=== PATIENT | female | born 1935 | race Caucasian/White ===

== ENCOUNTER 2016-05-07 19:04 | Inpatient (IN) ==
[2016-05-07] MEDS ORDERED: Ondansetron 4 MG/2 ML VIAL IVP ONE (19:35)
[2016-05-07] MEDS ORDERED: 0.9 % Sodium Chloride 500 ML IVC ONE (19:39)
--- NOTE | 2016-05-07 19:51 | Emergency Department Note ---
Disposition Clinical Impression: Hypoxia Acute renal failure Qualifiers: Acute renal failure type: unspecified Qualified Code(s): N17.9 - Acute kidney failure, unspecified Disposition: Admitted As Inpatient Condition: Good Time of Disposition: 00:39 General Adult HPI - General Chief complaint: ED Nausea/Vomiting/Diarrhea Stated complaint: N/V/D Time Seen by Provider: 05/07/16 19:10 Source: patient, EMS Mode of arrival: ambulatory Limitations: no limitations Nursing Notes Reviewed: Yes Vital Signs Reviewed: Yes - History of Present Illness HPI Narrative: 81-year-old female presents with concerns of nausea, vomiting, and diarrhea over the past 5 days. Patient states that she has had multiple episodes of nonbilious, nonbloody emesis. Diarrhea was described as liquid without hematochezia or melena. No other sick contacts at home. Patient reports right lower quadrant abdominal pain that is cramping, aching, nonradiating, no change with movement or by mouth intake. Patient reports mild shortness of breath with exertion, mild cough that is nonproductive. Patient stopped her Lasix 4 days ago upon request of her primary care provider. Patient denies fever, headache, rash. Family states the patient is mildly confused, was started on an unknown antibiotic yesterday for urinary tract infection. She also becomes confused with which is her baseline. Pain Scale: 0 - Related Data Home Medications Medication Instructions Recorded Confirmed Aspirin Enteric Coated [Aspirin EC] 81 mg PO DAILY 09/06/15 05/07/16 Ca/D3/Mag#11/Zinc/Obiee Lead Developer/Leonardo/Bor 1 tab PO BID 09/06/15 05/07/16 [Caltrate 600+D Plus Tablet] Cholecalciferol (D-3) [Vitamin D] 2,000 unit PO DAILY 09/06/15 05/07/16 Lansoprazole [Prevacid] 30 mg PO DAILY 09/06/15 05/07/16 Levothyroxine [Synthroid] 75 mcg PO DAILY 09/06/15 05/07/16 Multivit-Min/Iron/Folic/Lutein 1 tab PO DAILY 09/06/15 05/07/16 [Centrum Silver Women Tablet] Vit C/E/Zn/Coppr/Lutein/Zeaxan 1 cap PO BID 11/19/15 05/07/16 [Preservision Areds 2 Softgel] Nystatin Cream [Mycostatin Cream] 1 appl TP BID PRN 01/28/16 05/07/16 Ciprofloxacin HCl [Cipro] 250 mg PO BID 05/07/16 05/07/16 Meclizine [Antivert] 12.5 - 25 mg PO DAILY PRN 05/07/16 05/07/16 Oxybutynin Chloride [Ditropan Xl] 10 mg PO HS 05/07/16 05/07/16 Previous Rx's Medication Instructions Recorded Metoprolol XL (24 HR) Succ [Toprol 25 mg PO DAILY tab.er.24h 09/11/15 Xl] Allergies Allergy/AdvReac Type Severity Reaction Status Date / Time azithromycin Allergy Rash Verified 11/19/15 11:15 ketoconazole Allergy Rash Verified 11/19/15 11:15 methylprednisolone Allergy Blister Verified 11/19/15 11:15 Penicillins Allergy Rash Verified 11/19/15 11:15 tramadol AdvReac Nausea Verified 11/19/15 11:15 All systems ED: reviewed and negative except as stated. Constitutional: Reports: weakness. Denies: fever, chills Cardiovascular: Reports: dyspnea on exertion. Denies: chest pain, palpitations Respiratory: Reports: cough. Denies: dyspnea, wheezes Gastrointestinal: Reports: abdominal pain, nausea, vomiting, diarrhea. Denies: constipation, hematemesis, melena, hematochezia Musculoskeletal: Denies: back pain, neck pain Neurological: Denies: headache, weakness, numbness, paresthesias Past Medical History - Past Medical History Attestation: Yes The following information was validated with the patient. Source: patient Medical history: Reports: aortic aneurysm, cancer, CHF, CVA, DVT, GERD, thyroid disease Surgical history: Reports: cholecystectomy, colectomy, hysterectomy, other Psychiatric history: Reports: no psych history DRY CAN TENDER history: Reports: no DRY CAN TENDER history - Social History Smoking Status: Former smoker Smokeless Tobacco Status: No Alcohol use: Reports: none Drug use: Reports: none Physical Exam General: Alert and in no acute distress Skin: Warm, dry, intact Head: Normocephalic and atraumatic Neck: Supple, trachea midline and no tenderness Cardiovascular: Tachycardia, no murmur, normal perfusion Respiratory: Crackles in the bilateral posterior lung bases. Musculoskeletal: Normal strength, no tenderness, swelling or deformity GI: Soft, mild tenderness to palpation of the right lower quadrant and epigastrium without rigidity, guarding, or rebound. nondistended. Bowel sounds present Neuro: A&O to person, place, time and situation. No focal deficits noted on exam Psychiatric: cooperative and appropriate mood and affect. - General Limitations: no limitations General appearance: alert, in no apparent distress Course Vital Signs Temperature 97.8 F 05/07/16 19:07 Pulse Rate 101 05/07/16 19:07 Respiratory Rate 16 05/07/16 19:07 Blood Pressure 117/71 05/07/16 19:07 O2 Sat by Pulse Oximetry 88 L 05/07/16 19:07 Temperature 97.7 F 05/07/16 23:47 Pulse Rate 100 05/07/16 23:47 Respiratory Rate 14 05/07/16 23:47 Blood Pressure 130/78 05/07/16 23:47 O2 Sat by Pulse Oximetry 95 05/07/16 23:47 Oxygen Delivery Oxygen Delivery Nasal Cannula Medical Decision Making - MDM Narrative Medical decision making narrative: Pt given 500cc of fluid with improvement of HR. I did not give too much fluids due to her history of CHF. Pt may have aspirated during one of her episodes of emesis. Pt will be admitted for further care and evaluation. - Medical Records Medical records reviewed: Yes I reviewed the patient's medical records. - Lab Data Lab results reviewed: Yes I reviewed the patient's lab results. Result diagrams: 05/07/16 20:33 05/07/16 19:55 Lab Results 05/07/16 05/07/16 05/07/16 Range/Units 19:55 19:55 20:33 WBC 13.8 H (4.3-11.1) K/mcL RBC 4.75 (3.82-4.97) M/mcL Hgb 14.9 (11.5-15.4) g/dL Hct 47.1 H (35.3-44.9) % MCV 99.2 (83.0-100.0) fL MCH 31.4 (28.0-33.3) pg MCHC 31.6 (31.6-35.5) g/dL RDW 15.4 H (11.5-14.5) % Plt Count 223 (140-400) K/mcL MPV 9.9 (9.4-12.4) fL Immature Gran % 0.7 (0-4) % Seg Neutrophils % 85.1 % Lymphocytes % 6.2 % Monocytes % 7.6 % Eosinophils % 0.1 % Basophils % 0.3 % Neutrophils # 11.7 H (1.6-8.9) K/mcL Lymphocytes # 0.9 (0.6-4.6) K/mcL Monocytes # 1.0 (0.0-1.3) K/mcL Eosinophils # 0.0 (0.0-0.6) K/mcL Basophils # 0.0 (0.0-0.2) K/mcL Immature Plt Fraction 3.8 (1.1-6.1) % Sodium 140 (136-145) mEq/L Potassium 4.8 H (3.5-4.5) mEq/L Chloride 109 (98-109) mEq/L Carbon Dioxide 11 L (19-29) mEq/L BUN 32 H (7-20) mg/dL Creatinine 3.14 H (0.57-1.11) mg/dL Est GFR ( Amer) 17 L (> 60) Est GFR (Non-Af Amer) 14 L (> 60) BUN/Creatinine Ratio 10 (6-26) Glucose 143 H (70-99) mg/dL Calculated Osmolality 299 (280-300) Calcium 10.3 (8.6-10.8) mg/dL Total Bilirubin 0.5 (0.2-1.2) mg/dL Direct Bilirubin 0.2 (0.0-0.5) mg/dL Indirect Bilirubin 0.3 (0.0-1.2) mg/dL AST 40 H (5-34) Units/L ALT 37 (0-55) Units/L Alkaline Phosphatase 86 (38-126) Units/L Troponin I 0.01 (0-0.03) ng/mL B-Natriuretic Peptide (0-100) pg/mL Serum Total Protein 9.7 H (6.0-8.3) g/dL Albumin 4.2 (3.5-5.0) g/dL Globulin 5.5 H (2.4-3.5) g/dL Albumin/Globulin Ratio 0.8 L (1.1-2.2) Lipase 9 (8-78) Units/L Urine Color (Yellow) Urine Clarity (Clear) Urine pH (5.0-8.0) pH Units Ur Specific [place] (1.010-1.025) Urine Protein (Neg-Trace) mg/dL Urine Glucose (UA) (Normal) mg/dL Urine Ketones (Negative) mg/dL Urine Blood (Negative) Urine Nitrite (Negative) Urine Bilirubin (Negative) Urine Urobilinogen (Normal) mg/dL Ur Leukocyte Esterase (Negative) Urine Microscopic RBC (0-3) per hpf Urine Microscopic WBC (0-3) per hpf Ur Squamous Epith Cells (None-Few) per lpf Amorphous Sediment (Few) Urine Bacteria (None-Few) per hpf Hyaline Casts (None-Few) per lpf Ur Culture Indicated? (NO) 05/07/16 05/07/16 Range/Units 20:59 21:31 WBC (4.3-11.1) K/mcL RBC (3.82-4.97) M/mcL Hgb (11.5-15.4) g/dL Hct (35.3-44.9) % MCV (83.0-100.0) fL MCH (28.0-33.3) pg MCHC (31.6-35.5) g/dL RDW (11.5-14.5) % Plt Count (140-400) K/mcL MPV (9.4-12.4) fL Immature Gran % (0-4) % Seg Neutrophils % % Lymphocytes % % Monocytes % % Eosinophils % % Basophils % % Neutrophils # (1.6-8.9) K/mcL Lymphocytes # (0.6-4.6) K/mcL Monocytes # (0.0-1.3) K/mcL Eosinophils # (0.0-0.6) K/mcL Basophils # (0.0-0.2) K/mcL Immature Plt Fraction (1.1-6.1) % Sodium (136-145) mEq/L Potassium (3.5-4.5) mEq/L Chloride (98-109) mEq/L Carbon Dioxide (19-29) mEq/L BUN (7-20) mg/dL Creatinine (0.57-1.11) mg/dL Est GFR ( Amer) (> 60) Est GFR (Non-Af Amer) (> 60) BUN/Creatinine Ratio (6-26) Glucose (70-99) mg/dL Calculated Osmolality (280-300) Calcium (8.6-10.8) mg/dL Total Bilirubin (0.2-1.2) mg/dL Direct Bilirubin (0.0-0.5) mg/dL Indirect Bilirubin (0.0-1.2) mg/dL AST (5-34) Units/L ALT (0-55) Units/L Alkaline Phosphatase (38-126) Units/L Troponin I (0-0.03) ng/mL B-Natriuretic Peptide 67 (0-100) pg/mL Serum Total Protein (6.0-8.3) g/dL Albumin (3.5-5.0) g/dL Globulin (2.4-3.5) g/dL Albumin/Globulin Ratio (1.1-2.2) Lipase (8-78) Units/L Urine Color Yellow (Yellow) Urine Clarity Cloudy A (Clear) Urine pH 5.0 (5.0-8.0) pH Units Ur Specific [place] 1.016 (1.010-1.025) Urine Protein 30 H (Neg-Trace) mg/dL Urine Glucose (UA) Normal (Normal) mg/dL Urine Ketones Negative (Negative) mg/dL Urine Blood Negative (Negative) Urine Nitrite Negative (Negative) Urine Bilirubin Negative (Negative) Urine Urobilinogen Normal (Normal) mg/dL Ur Leukocyte Esterase Trace H (Negative) Urine Microscopic RBC 0-3 (0-3) per hpf Urine Microscopic WBC 0-3 (0-3) per hpf Ur Squamous Epith Cells Many H (None-Few) per lpf Amorphous Sediment Many H (Few) Urine Bacteria Moderate H (None-Few) per hpf Hyaline Casts Few (None-Few) per lpf Ur Culture Indicated? YES A (NO) - Radiology Data Radiology results reviewed: Yes I reviewed the patient's radiology results. - EKG Data EKG #1 EKG attestation: Yes I reviewed and interpreted this EKG. EKG results narrative: ECG - interpreted by ED physician. Rate 103 sinus tachycardia, no STEMI, [place], QT intervals, and QRS within normal limits
[2016-05-07 20:17] LABS: Albumin 4.2 g/dL (3.5-5.0); Albumin/Globulin Ratio 0.8 (1.1-2.2); Bilirubin,Direct 0.2 mg/dL (0.0-0.5); Bilirubin,Indirect 0.3 mg/dL (0.0-1.2); Bilirubin,Total 0.5 mg/dL (0.2-1.2); Calcium 10.3 mg/dL (8.6-10.8); Globulin 5.5 g/dL (2.4-3.5); Potassium 4.8 mEq/L (3.5-4.5); Total Protein 9.7 g/dL (6.0-8.3)
[2016-05-07 20:40] LABS: Basophils % 0.3 %; Eosinophils % 0.1 %; Hematocrit 47.1 % (35.3-44.9); Hemoglobin 14.9 g/dL (11.5-15.4); Immature Granulocytes % 0.7 % (0-4); Immature Platelets 3.8 % (1.1-6.1); Lymphocytes # 0.9 K/mcL (0.6-4.6); Lymphocytes % 6.2 %; Mean Corpuscular HGB Conc 31.6 g/dL (31.6-35.5); Mean Corpuscular Hemoglobin 31.4 pg (28.0-33.3); Mean Corpuscular Volume 99.2 fL (83.0-100.0); Mean Platelet Volume 9.9 fL (9.4-12.4); Monocytes % 7.6 %; Neutrophils # 11.7 K/mcL (1.6-8.9); Platelet Count 223 K/mcL (140-400); Red Blood Count 4.75 M/mcL (3.82-4.97); Red Cell Distribution Width 15.4 % (11.5-14.5); Segmented Neutrophils % 85.1 %
[2016-05-07 21:10] LABS: Bilirubin,Urine Negative (Negative); Blood,Urine Negative (Negative); Clarity,Urine Cloudy (Clear); Color,Urine Yellow (Yellow); Glucose,Urine (UA) Normal (Normal); Ketones,Urine Negative (Negative); Leukocyte Esterase,Urine Trace (Negative); Nitrite,Urine Negative (Negative); Protein,Urine 30 mg/dL (Neg-Trace); Specific Gravity,Urine 1.016 (1.010-1.025); Urobilinogen,Urine Normal (Normal)
[2016-05-07 21:11] LABS: Bacteria,Urine Moderate per hpf (None-Few); Hyaline Casts,Urine Few per lpf (None-Few); RBC,Urine 0-3 per hpf (0-3); Squamous Epithelial Cell,Urine Many per lpf (None-Few); WBC,Urine 0-3 per hpf (0-3)
[2016-05-07 21:30] LABS: Amorphous Sediment,Urine Many (Few)
[2016-05-07] MEDS ORDERED: Naloxone 0.4 MG/ML INJ IVP PRN (23:59)
[2016-05-08] MEDS ORDERED: 0.9 % Sodium Chloride 1,000 ML IVC SCH (00:15)
--- NOTE | 2016-05-08 00:31 | Internal Med History&Physical ---
Date of Encounter: 05/08/16 Time of Encounter: 00:00 Assessment and Plan (1) Acute renal failure (ARF) Current visit: Yes Status: Acute Patient's previous creatinine was 1.06 on 01/30/16, now 3.14. Likely secondary to dehydration from loss of fluids with nausea, vomiting, and diarrhea. Gentle fluid repletion at 75ml/hr due to history of CHF. Continue to monitor. Qualifiers: Acute renal failure type: unspecified Qualified Code(s): N17.9 - Acute kidney failure, unspecified (2) Diarrhea Current visit: Yes Status: Acute In the setting of starting an antibiotic of ciprofloxacin for UTI. Described as profuse and watery. Workup includes C Diff toxin and stool lactoferrin. C Diff was positive. Patient started on IV metronidazole and place on contract precautions. Fluid replacement as above. Qualifiers: Diarrhea type: presumed infectious Qualified Code(s): A09 - Infectious gastroenteritis and colitis, unspecified (3) Nausea and vomiting Current visit: Yes Status: Acute Patient was given Zofran in the ED with relief. Continue Zofran. Clear liquid diet ordered. Qualifiers: Vomiting type: cyclical vomiting Vomiting Intractability: non-intractable Qualified Code(s): G43.A0 - Cyclical vomiting, not intractable (4) CHF (congestive heart failure) Current visit: No Status: Chronic not in acute exacerbation at this time. No pedal adema. Giving fluids for acute renal failure. Will continue to monitor fluid status of the patient. BNP was 67 Patient on continuous pulse ox and oxygen as needed. Qualifiers: Congestive heart failure type: systolic Congestive heart failure chronicity : chronic Qualified Code(s): I50.22 - Chronic systolic (congestive) heart failure (5) DVT prophylaxis Current visit: No Status: Acute SQ heparin (6) Hypothyroid Current visit: No Status: Chronic continue home dose synthroid Qualifiers: Hypothyroidism type: unspecified Qualified Code(s): E03.9 - Hypothyroidism , unspecified Internal Medicine - H&P: HPI Chief complaint: nausea, vomiting, diarrhea Admitted From: Emergency Dept Plans for Post Hospital Care: Home History of present illness: Ms. Mosher is a 81 year old female with past medical history is significant for aortic aneurysm, colon cancer, congestive heart failure, previous CVA, previous DVT, hypothyroidism, GERD who presented to the emergency department for nausea, vomiting, and diarrhea. The patient states that she is been nauseated for the past 6 days and been having some urinary symptoms consistent with burning and increased urinary frequency. She was seen on for these symptoms and was given an antibiotic which was ciprofloxacin. After beginning this antibiotic she awoke in the night and had profuse watery diarrhea as well as vomiting approximately 6 times which did not have any by our blood in it. The patient's daughter was in the room and relayed that she continued to have profuse diarrhea throughout the day to the point where she called EMS to take her mom to the hospital. The patient reports having some slight shortness of breath, and a cough that is not productive. She denies fever, headache and rash. She denies any blood or darkening of the stools while she was having diarrhea. She denies having any sick contacts. She does have some right lower quadrant abdominal pain that is described as crampy and aching and does not radiate. The patient's daughter reports that she has some owning daily as a baseline and does not seem as confused as she has in the past when she has had AMS due to UTI. Past Med Surg Social Fam HX - Past Medical History Medical history: aortic aneurysm, cancer (colon, status post partial right colectomy), CHF, CVA, DVT, GERD, thyroid disease Psychiatric history: no psych history - Past Surgical History Surgical History: cholecystectomy, colectomy (partial), hysterectomy, other - Social History Smoking Status: Former smoker Smokeless Tobacco Status: No Alcohol use: none Drug use: none - Family History Daughter Adopted: No Family Member Ethnicity: Non- Living Status: Still Living Hx Family Cardiac Disorders: No Hx Family Respiratory Disorders: No Hx Family Cancer: No Hx Family GI Disorders: No Hx Family Endocrine Disorder: No Hx Family Neuromuscular Disorders: No Hx Family Neurologic Disorders: No Hx Family HEENT Disorders: Yes (glaucoma) Hx Family Autoimmune Disorders: No Mother Adopted: [place]: CHUCKIE Family Member Ethnicity: Non- Living Status: Age at : 84 Cause of : CANCER Hx Family Cancer: Yes Internal Medicine - H&P: Meds Aspirin Enteric Coated [Aspirin EC] 81 mg PO DAILY 09/06/15 [History] Ca/D3/Mag#11/Zinc/Agricultural Education Professor/Leonardo/Bor [Caltrate 600+D Plus Tablet] 1 tab PO BID [History] Cholecalciferol (D-3) [Vitamin D] 2,000 unit PO DAILY 09/06/15 [History] Lansoprazole [Prevacid] 30 mg PO DAILY 09/06/15 [History] Levothyroxine [Synthroid] 75 mcg PO DAILY 09/06/15 [History] Multivit-Min/Iron/Folic/Lutein [Centrum Silver Women Tablet] 1 tab PO DAILY [History] Metoprolol XL (24 HR) Succ [Toprol Xl] 25 mg PO DAILY tab.er.24h 09/11/15 [Rx] Vit C/E/Zn/Coppr/Lutein/Zeaxan [Preservision Areds 2 Softgel] 1 cap PO BID 11/18 [History] Nystatin Cream [Mycostatin Cream] 1 appl TP BID PRN 01/28/16 [History] Ciprofloxacin HCl [Cipro] 250 mg PO BID 05/07/16 [History] Meclizine [Antivert] 12.5 - 25 mg PO DAILY PRN 05/07/16 [History] Oxybutynin Chloride [Ditropan Xl] 10 mg PO HS 05/07/16 [History] Allergies azithromycin Allergy (Verified 11/19/15 11:15) Rash ketoconazole Allergy (Verified 11/19/15 11:15) Rash methylprednisolone Allergy (Verified 11/19/15 11:15) Blister Penicillins Allergy (Verified 11/19/15 11:15) Rash tramadol Adverse Reaction (Verified 11/19/15 11:15) Nausea All Systems PM: A 10-system review of systems was performed and is negative for pertinent findings except as documented above in the HPI. - Constitutional Constitutional: no chills, no fever(s), no night sweats - EENT Eyes: no change in vision, no discharge, no pain, no photophobia Ears: no ear discharge, no ear pain, no tinnitus Nose, mouth and throat: no dysphagia, no nasal discharge, no neck pain, no sore throat - Cardiovascular Cardiovascular ROS IM: no chest pain, no diaphoresis, no dyspnea, no lightheadedness, no palpitations, no syncope - Respiratory Respiratory: cough, no dyspnea, no wheezing, no excessive phlegm production - Gastrointestinal Gastrointestinal: abdominal pain, diarrhea, nausea, vomiting, no hematemesis, no hematochezia, no melena - Genitourinary Genitourinary: no change in urinary stream, no dysuria, no flank pain, no hematuria - Musculoskeletal Musculoskeletal ROS IM: no numbness, no tingling - Integumentary Integumentary IM: no rash, no unusual bruising - Neurological Neurological ROS: confusion, no convulsions, no focal weakness, no numbness, no tingling, no tremor(s) - Hematologic/Lymphatic Hematologic/Lymphatic: no easy bruising - Constitutional Vitals: Temp Pulse Resp BP Pulse Ox 97.7 F 100 14 130/78 95 05/07/16 23:47 05/07/16 23:47 05/07/16 23:47 05/07/16 23:47 05/07/16 23:47 General appearance: Present: cooperative, A&O X 2 (Patient was not oriented to place) - Head Head exam: Present: atraumatic, normocephalic - Eye Eye exam: Present: EOMI, PERRL, conjuntiva pink, sclera anicteric Pupils: Present: PERRL - Neck Neck exam general surgery: Present: supple, trachea midline. Absent: lymphadenopathy - Respiratory Respiratory exam: Absent: accessory muscle use, rales, rhonchi, wheezes Additional comments: crackles at lung bases bilaterally - Cardiovascular Cardiovascular exam: Present: RRR, +S1, +S2. Absent: diastolic murmur, gallop, rubs, systolic murmur - GI/Abdominal GI/Abdominal exam: Present: normal bowel sounds, soft, tenderness (very mild right lower quadrant), no peritoneal signs. Absent: distended - Extremities Exam Extremities exam: Present: warm, radial pulses palpable and symetrical. Absent : calf tenderness, cyanotic, pedal edema - Neurological Exam Neurological exam: Present: CN II-XII intact, oriented X3, no focal deficits. Absent: pronater drift, facial droop, speech deficit - Skin Skin exam: Present: dry, intact Additional comments: plaque with stuck-on appearance on the left side of the forehead Internal Med - H&P Results - Labs CBC & Chem 7: 05/07/16 20:33 05/07/16 19:55 - Attending Attestation I examined this patient and my medical decision-making was reviewed with the SANDWICH AND DRINK CART OPERATOR/PA/Advanced Practice Nurse/Resident Physician. I agree with the documented findings, disposition and treatment plan as described except to the extent set forth below.
[2016-05-08] MEDS: Nystatin Cream 15 GM TUBE TP PRN ×2 (00:38→09:28)
[2016-05-08] MEDS ORDERED: Ondansetron 4 MG/2 ML VIAL IVP PRN (00:45)
[2016-05-08] MEDS: MetroNIDAZOLE 500 MG/100 ML 500 MG/100 ML BAG IVPB SCH ×3 (02:43→18:00)
[2016-05-08 04:31] LABS: Calcium 9.8 mg/dL (8.6-10.8); Potassium 4.2 mEq/L (3.5-4.5)
[2016-05-08] MEDS: *HR* Heparin 5,000 UNIT/ML VIAL SQ SCH ×2 (06:26→18:01)
--- NOTE | 2016-05-08 09:26 | Event Note ---
Date of Encounter: 05/08/16 Time of Encounter: 09:20 81/female Brief medical history: Aortic aneurysm, congestive heart failure, previous CVA, previous DVT, hypothyroidism, congestive heart failure, colon cancer, GERD, Reason for admission and emergency room course: Patient was evaluated in the emergency department for nausea and vomiting and diarrhea. She had a previously urinary tract infection for which she was given antibiotics. This was one week ago. Patient had a persistent nausea and vomiting and diarrhea for the last 5 days. She had profuse diarrhea for more than 24 hours and that was the reason she called EMS. Patient was evaluated in the emergency department. It was noted that she has a C. difficile positive. Patient was admitted in view of C. difficile infection with possible colitis. Vitals: Afebrile, pulse: 89, respiratory rate: 16, blood pressure: 122/70, oxygen saturation 92% on 3 L. Examination: I examined this patient. Examination of head, eyes, ears, nose, oral cavity and cervical area did not show any abnormality. Examination of the heart and lungs within normal limits. She has diffuse abdominal tenderness. Brief neurological examination is within normal limits. Assessment and plan: -C. difficile colitis -Previous urinary tract infection -Multiple comorbidities as mentioned. Plan: -IV fluids 125 mL per hour. -IV metronidazole 500 mg every 8 hours. -Patient home medications. -Change status: From observation to inpatient. Reason: Patient needs more than 4-5 days of inpatient IV antibiotics. I have spoken to patient's daughter at length and CODE STATUS is DNR CCA Discussed at length regarding the reason for admission, treatment plan, and possible outcome. Patient and her daughter understood well. At this point they have no questions.
[2016-05-08] MEDS: Aspirin Enteric Coated 81 MG Tablet PO SCH (09:28)
[2016-05-08] MEDS: Metoprolol XL (24 HR) Succ 25 MG TAB.ER.24H PO SCH (09:28)
[2016-05-08] MEDS: 0.9 % Sodium Chloride 1,000 ML IVC SCH ×3 (09:34→21:50)
[2016-05-09] MEDS: MetroNIDAZOLE 500 MG/100 ML 500 MG/100 ML BAG IVPB SCH ×3 (02:26→17:42)
[2016-05-09] MEDS: *HR* Heparin 5,000 UNIT/ML VIAL SQ SCH ×2 (06:25→17:42)
[2016-05-09] MEDS: Aspirin Enteric Coated 81 MG Tablet PO SCH (08:46)
[2016-05-09] MEDS: Metoprolol XL (24 HR) Succ 25 MG TAB.ER.24H PO SCH (08:46)
--- NOTE | 2016-05-09 14:46 | Electrocardiograph Report ---
[facility] Test Date: 2016-05-07 Pat Name: Janeen Mosher Department: 102 Room: 3B16 Gender: F Rebeamer: Eriberto : 1935 Requested By: Homero Solo Order Number: [id number] Reading MD: Armando Perez MD Measurements Intervals [place] Rate: 103 P: 30 MS: 169 QRS: 28 QRSD: 104 T: 87 QT: 349 QTc: 409 Interpretive Statements SINUS TACHYCARDIA ANTEROSEPTAL MYOCARDIAL INFARCTION [40+ ms Q WAVE IN V1-V4], OF INDETERMINATE AGE Electronically Signed On 05-09-16 14:45:42 EST by Armando Perez MD
[2016-05-09] MEDS: 0.9 % Sodium Chloride 1,000 ML IVC SCH ×2 (14:54→17:43)
--- NOTE | 2016-05-09 15:21 | Internal Med Progress Note ---
Date of Encounter: 05/09/16 Time of Encounter: 15:18 - Assessment and plan (1) C. difficile diarrhea Current Visit: Yes Status: Acute Assessment and plan: Clostridium difficile diarrhea: -Patient still has active diarrhea. -She is C. difficile positive. Likely etiology of this is previous antibiotics which was prescribed for UTI -Patient is on IV metronidazole 500 mg every 8 hours. Day 3 -We will continue present treatment. -Patient was on 1 25 mL normal saline per hour which I decreased to 75 mL per hour. -We will repeat labs today. (2) Acute renal failure (ARF) Current Visit: Yes Status: Acute Assessment and plan: Acute renal failure: -The etiology of acute renal failure is multifactorial. -We will repeat labs today and monitor the trend. -Presently she is receiving IV fluids for etiology. -We will continue to monitor renal function. -His renal function is persistently worsening then we will get nephrology on the board tomorrow Qualifiers: Acute renal failure type: unspecified Qualified Code(s): N17.9 - Acute kidney failure, unspecified (3) Nausea and vomiting Current Visit: Yes Status: Acute Assessment and plan: Patient's nausea and vomiting is markedly improved. Qualifiers: Vomiting type: cyclical vomiting Vomiting Intractability: non-intractable Qualified Code(s): G43.A0 - Cyclical vomiting, not intractable (4) DVT prophylaxis Current Visit: No Status: Acute Assessment and plan: Patient is on subcutaneous tinzaparin. Medical decision making: This patient has a [id number] risk of worsening of her gastrointestinal symptoms in spite of being on appropriate treatment. - Subjective Interval history: Patient seen and examined. Chart reviewed. Patient still has occasional diarrhea. We will continue precautions so that the germs will not spread around - Constitutional Vitals: Temp Pulse Resp BP Pulse Ox 98.2 F 63 15 115/68 90 L 05/09/16 12:10 05/09/16 12:10 05/09/16 12:10 05/09/16 12:10 05/09/16 12:10 General appearance: Present: cooperative, A&O X 2 (Patient was not oriented to place) - Head Head exam: Present: atraumatic, normocephalic - Eye Eye exam: Present: PERRL, conjuntiva pink, sclera anicteric Pupils: Present: PERRL - Neck Neck exam general surgery: Present: supple, trachea midline. Absent: lymphadenopathy - Respiratory Respiratory exam: Present: CTAB. Absent: accessory muscle use, rales, rhonchi, wheezes - Cardiovascular Cardiovascular exam: Present: RRR, +S1, +S2. Absent: diastolic murmur, gallop, rubs, systolic murmur - GI/Abdominal GI/Abdominal exam: Present: normal bowel sounds, soft, no peritoneal signs. Absent: distended, tenderness - Extremities Exam Extremities exam: Present: warm, radial pulses palpable and symetrical. Absent : calf tenderness, cyanotic, pedal edema - Neurological Exam Neurological exam: Present: CN II-XII intact, oriented X3, no focal deficits. Absent: pronater drift, facial droop, speech deficit - Skin Skin exam: Present: dry, intact Internal Medicine: Result - Labs CBC & Chem 7: 05/07/16 20:33 05/08/16 03:46 - Impressions Impressions Head CT 05/08/16 15:16 IMPRESSION: No acute intracranial abnormality. D/ / Jose Antonio Whitt MD / Jose Antonio Whitt MD Interpreting Provider: Jose Antonio Whitt MD Consult Discharge Plan - Plan Referrals: Sho Christina CNP [Primary Care Provider] -
[2016-05-09 17:19] LABS: Albumin/Globulin Ratio 0.8 (1.1-2.2); Bilirubin,Total 0.2 mg/dL (0.2-1.2); Calcium 8.6 mg/dL (8.6-10.8); Globulin 4.3 g/dL (2.4-3.5); Potassium 4.8 mEq/L (3.5-4.5)
[2016-05-09 17:26] LABS: Albumin 3.3 g/dL (3.5-5.0); Total Protein 7.6 g/dL (6.0-8.3)
[2016-05-09 18:35] LABS: Basophils % 0.4 %; Eosinophils # 0.4 K/mcL (0.0-0.6); Eosinophils % 4.6 %; Hematocrit 40.8 % (35.3-44.9); Hemoglobin 12.7 g/dL (11.5-15.4); Immature Granulocytes % 0.6 % (0-4); Immature Platelets 3.1 % (1.1-6.1); Lymphocytes % 20.9 %; Mean Corpuscular HGB Conc 31.1 g/dL (31.6-35.5); Mean Corpuscular Hemoglobin 31.8 pg (28.0-33.3); Mean Platelet Volume 10.3 fL (9.4-12.4); Monocytes # 1.1 K/mcL (0.0-1.3); Monocytes % 12.1 %; Neutrophils # 5.7 K/mcL (1.6-8.9); Platelet Count 186 K/mcL (140-400); Red Cell Distribution Width 15.4 % (11.5-14.5); Segmented Neutrophils % 61.4 %
[2016-05-10] MEDS: MetroNIDAZOLE 500 MG/100 ML 500 MG/100 ML BAG IVPB SCH ×3 (02:31→18:03)
[2016-05-10] MEDS: 0.9 % Sodium Chloride 1,000 ML IVC SCH ×2 (06:40→23:11)
[2016-05-10] MEDS: *HR* Heparin 5,000 UNIT/ML VIAL SQ SCH ×2 (06:40→18:03)
[2016-05-10] MEDS: Metoprolol XL (24 HR) Succ 25 MG TAB.ER.24H PO SCH (07:52)
[2016-05-10] MEDS: Cholecalciferol (D-3) 1,000 UNIT TABLET PO SCH (07:52)
[2016-05-10] MEDS: Aspirin Enteric Coated 81 MG Tablet PO SCH (07:52)
--- NOTE | 2016-05-10 10:11 | Internal Med Progress Note ---
<Dwayne Del Cid - Last Filed: 05/10/16 17:05> Date of Encounter: 05/10/16 Time of Encounter: 10:10 - Assessment and plan (1) C. difficile diarrhea Status: Acute Assessment and plan: Clostridium difficile diarrhea: -Patient still has active diarrhea, discovered on PCR. -She is C. difficile positive. Likely etiology of this is previous antibiotics which was prescribed for UTI. -Patient is on IV metronidazole 500 mg every 8 hours. Day 4. -We will continue present treatment. -Consider discharge within 2 days pending diarrhea under 4 bm, patient gets adequate home health care, creatinine returns to baseline. (2) Acute kidney injury Status: Acute Assessment and plan: -Creatinine trending down. -Continue to monitor - Time Spent With Patient 25 - 35 minutes - Subjective Interval history: Patient states that she feels better today than yesterday. Diarrhea has decreased. She 6 bm last night. She admits to abdominal pain, but feels like it is due to the lovenox shots. She denies bloody bm, CP, SOB. She lives at home by herself, has home health that comes by 3h a day/7d a week. She has no questions or concerns at this time. - Constitutional Vitals: Temp Pulse Resp BP Pulse Ox 97.4 F L 87 16 113/76 93 L 05/10/16 07:50 05/10/16 07:50 05/10/16 07:50 05/10/16 07:50 05/10/16 07:50 General appearance: Present: cooperative, A&O X 2 (Patient was not oriented to place) - Respiratory Respiratory exam: Present: CTAB - Cardiovascular Cardiovascular exam: Present: RRR - GI/Abdominal GI/Abdominal exam: Present: normal bowel sounds, soft, tenderness. Absent: distended - Psychiatric Psychiatric exam: Present: normal affect, normal mood Internal Medicine: Result - Labs CBC & Chem 7: 05/09/16 18:25 05/09/16 16:56 Labs: Short CBC 05/09/16 Range/Units 18:25 WBC 9.3 (4.3-11.1) K/mcL Hgb 12.7 D (11.5-15.4) g/dL Hct 40.8 (35.3-44.9) % Plt Count 186 (140-400) K/mcL Neutrophils # 5.7 (1.6-8.9) K/mcL BMP 05/09/16 16:56 Sodium 146 H Potassium 4.8 H Chloride 126 H D Carbon Dioxide 9 L* BUN 36 H Creatinine 2.34 H Glucose 101 H Calcium 8.6 Liver Function 05/09/16 Range/Units 16:56 Total Bilirubin 0.2 (0.2-1.2) mg/dL AST 46 H (5-34) Units/L ALT 27 (0-55) Units/L Alkaline Phosphatase 64 (38-126) Units/L Albumin 3.3 L D (3.5-5.0) g/dL Consult Discharge Plan - Plan Instructions: Acute Kidney Injury (DC), Clostridium Difficile Infection (DC) Referrals: Sho Christina EDUCATIONAL/DEVELOPMENT ASSISTANT [Primary Care Provider] - Prescriptions: MetroNIDAZOLE [Flagyl] 500 mg PO TID #24 tablet <Alejandro Perry - Last Filed: 05/15/16 23:14> Date of Encounter: 05/15/16 - Assessment and plan (1) C. difficile diarrhea Status: Acute (2) Acute renal failure (ARF) Status: Resolved Assessment and plan: Continues to improve. Creatinine 1.24 today. Qualifiers: Acute renal failure type: unspecified Qualified Code(s): N17.9 - Acute kidney failure, unspecified (3) Nausea and vomiting Status: Resolved Qualifiers: Vomiting type: cyclical vomiting Vomiting Intractability: non-intractable Qualified Code(s): G43.A0 - Cyclical vomiting, not intractable (4) DVT prophylaxis Status: Acute - Constitutional Vitals: Temp Pulse Resp BP Pulse Ox 98.1 F 62 16 134/72 96 05/10/16 17:39 05/10/16 17:39 05/10/16 17:39 05/10/16 17:39 05/10/16 17:39 Internal Medicine: Result - Labs CBC & Chem 7: 05/14/16 03:44 05/14/16 03:44 Labs: Short CBC 05/09/16 Range/Units 18:25 WBC 9.3 (4.3-11.1) K/mcL Hgb 12.7 D (11.5-15.4) g/dL Hct 40.8 (35.3-44.9) % Plt Count 186 (140-400) K/mcL Neutrophils # 5.7 (1.6-8.9) K/mcL - Attending Attestation I examined this patient and my medical decision-making was reviewed with the SUPERVISOR YARD/PA/Advanced Practice Nurse/Resident Physician. I agree with the documented findings, disposition and treatment plan as described except to the extent set forth below.
[2016-05-10] MEDS: Nystatin Cream 15 GM TUBE TP PRN (20:25)
[2016-05-11] MEDS: MetroNIDAZOLE 500 MG/100 ML 500 MG/100 ML BAG IVPB SCH ×3 (02:38→22:08)
[2016-05-11 04:54] LABS: Basophils % 0.4 %; Eosinophils # 0.7 K/mcL (0.0-0.6); Eosinophils % 8.3 %; Hemoglobin 12.4 g/dL (11.5-15.4); Immature Granulocytes % 0.5 % (0-4); Lymphocytes # 1.8 K/mcL (0.6-4.6); Lymphocytes % 21.7 %; Mean Corpuscular Volume 103.4 fL (83.0-100.0); Mean Platelet Volume 10.2 fL (9.4-12.4); Monocytes # 0.7 K/mcL (0.0-1.3); Monocytes % 8.7 %; Neutrophils # 4.9 K/mcL (1.6-8.9); Platelet Count 160 K/mcL (140-400); Red Blood Count 3.87 M/mcL (3.82-4.97); Red Cell Distribution Width 15.2 % (11.5-14.5); Segmented Neutrophils % 60.4 %
[2016-05-11 05:08] LABS: Albumin 3.1 g/dL (3.5-5.0); Calcium 8.5 mg/dL (8.6-10.8); Potassium 3.9 mEq/L (3.5-4.5)
[2016-05-11 05:28] LABS: Platelet Estimate Normal (Normal); Reactive Lymphocytes Present (Not Present)
[2016-05-11] MEDS ORDERED: Sodium Bicarbonate 75 MEQ in 0.45 % Sodium Chloride 1,000 ML IVC SCH (06:00)
[2016-05-11] MEDS: *HR* Heparin 5,000 UNIT/ML VIAL SQ SCH (06:33)
[2016-05-11] MEDS: Cholecalciferol (D-3) 1,000 UNIT TABLET PO SCH (08:15)
[2016-05-11] MEDS: Aspirin Enteric Coated 81 MG Tablet PO SCH (08:15)
[2016-05-11] MEDS: Metoprolol XL (24 HR) Succ 25 MG TAB.ER.24H PO SCH (08:15)
[2016-05-11] MEDS ORDERED: Sodium Bicarbonate 150 MEQ in D5% in Water 1,000 ML IVC SCH (09:00)
[2016-05-11] MEDS: Sodium Bicarbonate 150 MEQ in D5% in Water 1,000 ML IVC SCH (15:29)
--- NOTE | 2016-05-11 15:36 | Internal Med Progress Note ---
Date of Encounter: 05/11/16 Time of Encounter: 12:30 - Assessment and plan (1) C. difficile diarrhea Current Visit: Yes Status: Acute Assessment and plan: Improving. Continue Flagyl. On isolation precautions. (2) Acidosis, hyperchloremic Current Visit: Yes Status: Acute Assessment and plan: Due to normal saline infusion. We will stop normal saline. Change IV fluids to D5 water with bicarbonate. (3) Acute renal failure (ARF) Current Visit: Yes Status: Acute Assessment and plan: Improving. Creatinine 1.63. We will follow renal function. Qualifiers: Acute renal failure type: unspecified Qualified Code(s): N17.9 - Acute kidney failure, unspecified (4) Nausea and vomiting Current Visit: Yes Status: Resolved Qualifiers: Vomiting type: cyclical vomiting Vomiting Intractability: non-intractable Qualified Code(s): G43.A0 - Cyclical vomiting, not intractable (5) CKD (chronic kidney disease) stage 3, GFR 30-59 ml/min Current Visit: No Status: Acute (6) DVT prophylaxis Current Visit: No Status: Acute Assessment and plan: On subcutaneous heparin - Subjective Interval history: Patient feeling better today. Diarrhea is improving. Patient is having more formed stools. No abdominal pain reported but patient does have tenderness at the site of heparin injections. - Constitutional Vitals: Temp Pulse Resp BP Pulse Ox 98.4 F 61 15 121/69 94 L 05/11/16 12:39 05/11/16 13:18 05/11/16 13:18 05/11/16 13:18 05/11/16 13:18 General appearance: Present: cooperative, A&O X 2, answers questions appropriately - Respiratory Respiratory exam: Present: CTAB. Absent: accessory muscle use, rales, rhonchi, wheezes - Cardiovascular Cardiovascular exam: Present: RRR, +S1, +S2. Absent: diastolic murmur, gallop, rubs, systolic murmur - GI/Abdominal GI/Abdominal exam: Present: normal bowel sounds, soft, tenderness (At site of heparin injections), no peritoneal signs. Absent: distended - Extremities Exam Extremities exam: Present: warm, radial pulses palpable and symetrical. Absent : calf tenderness, cyanotic, pedal edema - Neurological Exam Neurological exam: Present: alert, CN II-XII intact, no focal deficits, strengths equal and symetr throughout. Absent: facial droop, speech deficit - Skin Skin exam: Present: dry, intact Internal Medicine: Result - Labs CBC & Chem 7: 05/11/16 03:46 05/11/16 03:46 Labs: Short CBC 05/11/16 Range/Units 03:46 WBC 8.1 (4.3-11.1) K/mcL Hgb 12.4 (11.5-15.4) g/dL Hct 40.0 (35.3-44.9) % Plt Count 160 (140-400) K/mcL Neutrophils # 4.9 (1.6-8.9) K/mcL BMP 05/11/16 03:46 Sodium 143 Potassium 3.9 Chloride 127 H Carbon Dioxide 9 L* BUN 23 H D Creatinine 1.63 H Glucose 78 Calcium 8.5 L Liver Function 05/11/16 Range/Units 03:46 Albumin 3.1 L (3.5-5.0) g/dL Consult Discharge Plan - Plan Referrals: Sho Christina, INBOUND TELEMARKETER [Primary Care Provider] - 05/27/16 1:30 pm - Attending Attestation This document has been at least partially created by [employer] recognition technology by Dr. Conroy. Errors in grammar, wording or other phrases may exist. If errors are found after the documentation is signed, they will be addressed individually in the addendum section of this document when appropriate. Medical Decision Making - [facility] Narrative Medical decision making narrative: Moderate risk for complications - Medical Records Medical records reviewed: Yes I reviewed the patient's medical records. - Lab Data Lab results reviewed: Yes I reviewed the patient's lab results. Result diagrams: 05/11/16 03:46 05/11/16 03:46 Lab Results 05/09/16 05/09/16 05/09/16 Range/Units 15:15 16:56 16:56 WBC (4.3-11.1) K/mcL RBC (3.82-4.97) M/mcL Hgb (11.5-15.4) g/dL Hct (35.3-44.9) % MCV (83.0-100.0) fL MCH (28.0-33.3) pg MCHC (31.6-35.5) g/dL RDW (11.5-14.5) % Plt Count (140-400) K/mcL MPV (9.4-12.4) fL Immature Gran % (0-4) % Seg Neutrophils % % Lymphocytes % % Monocytes % % Eosinophils % % Basophils % % Neutrophils # (1.6-8.9) K/mcL Lymphocytes # (0.6-4.6) K/mcL Monocytes # (0.0-1.3) K/mcL Eosinophils # (0.0-0.6) K/mcL Basophils # (0.0-0.2) K/mcL Reactive Lymphocytes (Not Present) Platelet Estimate (Normal) Immature Plt Fraction (1.1-6.1) % Sodium 146 H (136-145) mEq/L Potassium 4.8 H (3.5-4.5) mEq/L Chloride 126 H D (98-109) mEq/L Carbon Dioxide 9 L* (19-29) mEq/L BUN 36 H (7-20) mg/dL Creatinine 2.34 H (0.57-1.11) mg/dL Est GFR ( Amer) 24 L (> 60) Est GFR (Non-Af Amer) 20 L (> 60) BUN/Creatinine Ratio 15 (6-26) Glucose 101 H (70-99) mg/dL Calculated Osmolality 310 H (280-300) Calcium 8.6 (8.6-10.8) mg/dL Total Bilirubin 0.2 (0.2-1.2) mg/dL AST 46 H (5-34) Units/L ALT 27 (0-55) Units/L Alkaline Phosphatase 64 (38-126) Units/L Serum Total Protein 7.6 D (6.0-8.3) g/dL Albumin 3.3 L D (3.5-5.0) g/dL Globulin 4.3 H (2.4-3.5) g/dL Albumin/Globulin Ratio 0.8 L (1.1-2.2) Stool Occult Blood Negative (Negative) Specimen Rejected Clotted 05/09/16 05/11/16 05/11/16 Range/Units 18:25 03:46 03:46 WBC 9.3 8.1 (4.3-11.1) K/mcL RBC 4.00 3.87 (3.82-4.97) M/mcL Hgb 12.7 D 12.4 (11.5-15.4) g/dL Hct 40.8 40.0 (35.3-44.9) % MCV 102.0 H 103.4 H (83.0-100.0) fL MCH 31.8 32.0 (28.0-33.3) pg MCHC 31.1 L 31.0 L (31.6-35.5) g/dL RDW 15.4 H 15.2 H (11.5-14.5) % Plt Count 186 160 (140-400) K/mcL MPV 10.3 10.2 (9.4-12.4) fL Immature Gran % 0.6 0.5 (0-4) % Seg Neutrophils % 61.4 60.4 % Lymphocytes % 20.9 21.7 % Monocytes % 12.1 8.7 % Eosinophils % 4.6 8.3 % Basophils % 0.4 0.4 % Neutrophils # 5.7 4.9 (1.6-8.9) K/mcL Lymphocytes # 2.0 1.8 (0.6-4.6) K/mcL Monocytes # 1.1 0.7 (0.0-1.3) K/mcL Eosinophils # 0.4 0.7 H (0.0-0.6) K/mcL Basophils # 0.0 0.0 (0.0-0.2) K/mcL Reactive Lymphocytes Present A (Not Present) Platelet Estimate Normal (Normal) Immature Plt Fraction 3.1 (1.1-6.1) % Sodium 143 (136-145) mEq/L Potassium 3.9 (3.5-4.5) mEq/L Chloride 127 H (98-109) mEq/L Carbon Dioxide 9 L* (19-29) mEq/L BUN 23 H D (7-20) mg/dL Creatinine 1.63 H (0.57-1.11) mg/dL Est GFR ( Amer) 37 L (> 60) Est GFR (Non-Af Amer) 30 L (> 60) BUN/Creatinine Ratio 14 (6-26) Glucose 78 (70-99) mg/dL Calculated Osmolality 299 (280-300) Calcium 8.5 L (8.6-10.8) mg/dL Total Bilirubin (0.2-1.2) mg/dL AST (5-34) Units/L ALT (0-55) Units/L Alkaline Phosphatase (38-126) Units/L Serum Total Protein (6.0-8.3) g/dL Albumin 3.1 L (3.5-5.0) g/dL Globulin (2.4-3.5) g/dL Albumin/Globulin Ratio (1.1-2.2) Stool Occult Blood (Negative) Specimen Rejected
[2016-05-11] MEDS: Melatonin 3 MG TABLET PO SCH (23:06)
[2016-05-12] MEDS: MetroNIDAZOLE 500 MG/100 ML 500 MG/100 ML BAG IVPB SCH ×2 (05:15→14:49)
[2016-05-12] MEDS: *HR* Heparin 5,000 UNIT/ML VIAL SQ SCH ×2 (05:17→17:51)
[2016-05-12 06:33] LABS: Basophils % 0.5 %; Eosinophils # 0.5 K/mcL (0.0-0.6); Eosinophils % 7.4 %; Hematocrit 35.3 % (35.3-44.9); Hemoglobin 11.3 g/dL (11.5-15.4); Immature Granulocytes % 0.6 % (0-4); Lymphocytes % 29.6 %; Mean Corpuscular Hemoglobin 31.1 pg (28.0-33.3); Mean Corpuscular Volume 97.2 fL (83.0-100.0); Mean Platelet Volume 10.3 fL (9.4-12.4); Monocytes # 0.6 K/mcL (0.0-1.3); Monocytes % 9.5 %; Neutrophils # 3.5 K/mcL (1.6-8.9); Platelet Count 139 K/mcL (140-400); Red Blood Count 3.63 M/mcL (3.82-4.97); Red Cell Distribution Width 14.8 % (11.5-14.5); Segmented Neutrophils % 52.4 %
[2016-05-12] MEDS: Nystatin Cream 15 GM TUBE TP PRN (06:38)
[2016-05-12 06:45] LABS: Albumin 2.8 g/dL (3.5-5.0); Calcium 8.2 mg/dL (8.6-10.8); Potassium 3.2 mEq/L (3.5-4.5)
[2016-05-12 07:48] LABS: Large Platelets Present (Not Present); Platelet Estimate Normal (Normal); Reactive Lymphocytes Present (Not Present)
[2016-05-12] MEDS: Sodium Bicarbonate 150 MEQ in D5% in Water 1,000 ML IVC SCH (09:39)
[2016-05-12] MEDS: Aspirin Enteric Coated 81 MG Tablet PO SCH (09:41)
[2016-05-12] MEDS: Cholecalciferol (D-3) 1,000 UNIT TABLET PO SCH (09:41)
[2016-05-12] MEDS: Metoprolol XL (24 HR) Succ 25 MG TAB.ER.24H PO SCH (09:42)
--- NOTE | 2016-05-12 14:59 | Internal Med Progress Note ---
Date of Encounter: 05/12/16 Time of Encounter: 12:15 - Assessment and plan (1) C. difficile diarrhea Current Visit: Yes Status: Acute Assessment and plan: Improving. Will change antibiotic to oral Flagyl. (2) Acidosis, hyperchloremic Current Visit: Yes Status: Acute Assessment and plan: Improving. Continue IV fluid replacement with D5 water and sodium bicarbonate. Patient also has hypokalemia which we will also replace orally. (3) Acute renal failure (ARF) Current Visit: Yes Status: Acute Assessment and plan: Continues to improve. Creatinine 1.24 today. Qualifiers: Acute renal failure type: unspecified Qualified Code(s): N17.9 - Acute kidney failure, unspecified (4) Nausea and vomiting Current Visit: Yes Status: Resolved Qualifiers: Vomiting type: cyclical vomiting Vomiting Intractability: non-intractable Qualified Code(s): G43.A0 - Cyclical vomiting, not intractable (5) CKD (chronic kidney disease) stage 3, GFR 30-59 ml/min Current Visit: No Status: Acute Assessment and plan: Renal function at baseline. (6) DVT prophylaxis Current Visit: No Status: Acute Assessment and plan: With subcutaneous heparin - Subjective Interval history: Patient is currently somnolent. She had been unable to sleep for the previous night so she received Benadryl last night and had an adverse reaction to it was unable to sleep for a while. She slept early this morning. Her diarrhea is improving. No abdominal pain reported. - Constitutional Vitals: Temp Pulse Resp BP Pulse Ox 97.4 F L 67 17 150/78 93 L 05/12/16 11:17 05/12/16 11:17 05/12/16 11:17 05/12/16 11:17 05/12/16 11:17 General appearance: Present: cooperative, A&O X 2, answers questions appropriately - Respiratory Respiratory exam: Present: CTAB. Absent: accessory muscle use, rales, rhonchi, wheezes - Cardiovascular Cardiovascular exam: Present: RRR, +S1, +S2. Absent: diastolic murmur, gallop, rubs, systolic murmur - GI/Abdominal GI/Abdominal exam: Present: normal bowel sounds, soft, no peritoneal signs. Absent: distended, tenderness - Extremities Exam Extremities exam: Present: warm, radial pulses palpable and symetrical. Absent : calf tenderness, cyanotic, pedal edema Internal Medicine: Result - Labs CBC & Chem 7: 05/12/16 06:11 05/12/16 06:11 Labs: Short CBC 05/12/16 Range/Units 06:11 WBC 6.6 (4.3-11.1) K/mcL Hgb 11.3 L (11.5-15.4) g/dL Hct 35.3 (35.3-44.9) % Plt Count 139 L (140-400) K/mcL Neutrophils # 3.5 (1.6-8.9) K/mcL BMP 05/12/16 06:11 Sodium 143 Potassium 3.2 L Chloride 119 H Carbon Dioxide 17 L BUN 16 Creatinine 1.24 H Glucose 91 Calcium 8.2 L Liver Function 05/12/16 Range/Units 06:11 Albumin 2.8 L (3.5-5.0) g/dL Consult Discharge Plan - Plan Referrals: Sho Christina, SET OFF BLOCKER [Primary Care Provider] - 05/27/16 1:30 pm - Attending Attestation This document has been at least partially created by [email or web address] recognition technology by Dr. Conroy. Errors in grammar, wording or other phrases may exist. If errors are found after the documentation is signed, they will be addressed individually in the addendum section of this document when appropriate. Medical Decision Making - MDM Narrative Medical decision making narrative: Low risk for complications - Lab Data Lab results reviewed: Yes I reviewed the patient's lab results. Result diagrams: 05/12/16 06:11 05/12/16 06:11 Lab Results 05/09/16 05/09/16 05/09/16 Range/Units 15:15 16:56 16:56 WBC (4.3-11.1) K/mcL RBC (3.82-4.97) M/mcL Hgb (11.5-15.4) g/dL Hct (35.3-44.9) % MCV (83.0-100.0) fL MCH (28.0-33.3) pg MCHC (31.6-35.5) g/dL RDW (11.5-14.5) % Plt Count (140-400) K/mcL MPV (9.4-12.4) fL Immature Gran % (0-4) % Seg Neutrophils % % Lymphocytes % % Monocytes % % Eosinophils % % Basophils % % Neutrophils # (1.6-8.9) K/mcL Lymphocytes # (0.6-4.6) K/mcL Monocytes # (0.0-1.3) K/mcL Eosinophils # (0.0-0.6) K/mcL Basophils # (0.0-0.2) K/mcL Reactive Lymphocytes (Not Present) Platelet Estimate (Normal) Large Platelets (Not Present) Immature Plt Fraction (1.1-6.1) % Sodium 146 H (136-145) mEq/L Potassium 4.8 H (3.5-4.5) mEq/L Chloride 126 H D (98-109) mEq/L Carbon Dioxide 9 L* (19-29) mEq/L BUN 36 H (7-20) mg/dL Creatinine 2.34 H (0.57-1.11) mg/dL Est GFR ( Amer) 24 L (> 60) Est GFR (Non-Af Amer) 20 L (> 60) BUN/Creatinine Ratio 15 (6-26) Glucose 101 H (70-99) mg/dL Calculated Osmolality 310 H (280-300) Calcium 8.6 (8.6-10.8) mg/dL Total Bilirubin 0.2 (0.2-1.2) mg/dL AST 46 H (5-34) Units/L ALT 27 (0-55) Units/L Alkaline Phosphatase 64 (38-126) Units/L Serum Total Protein 7.6 D (6.0-8.3) g/dL Albumin 3.3 L D (3.5-5.0) g/dL Globulin 4.3 H (2.4-3.5) g/dL Albumin/Globulin Ratio 0.8 L (1.1-2.2) Stool Occult Blood Negative (Negative) Specimen Rejected Clotted 05/09/16 05/11/16 05/11/16 Range/Units 18:25 03:46 03:46 WBC 9.3 8.1 (4.3-11.1) K/mcL RBC 4.00 3.87 (3.82-4.97) M/mcL Hgb 12.7 D 12.4 (11.5-15.4) g/dL Hct 40.8 40.0 (35.3-44.9) % MCV 102.0 H 103.4 H (83.0-100.0) fL MCH 31.8 32.0 (28.0-33.3) pg MCHC 31.1 L 31.0 L (31.6-35.5) g/dL RDW 15.4 H 15.2 H (11.5-14.5) % Plt Count 186 160 (140-400) K/mcL MPV 10.3 10.2 (9.4-12.4) fL Immature Gran % 0.6 0.5 (0-4) % Seg Neutrophils % 61.4 60.4 % Lymphocytes % 20.9 21.7 % Monocytes % 12.1 8.7 % Eosinophils % 4.6 8.3 % Basophils % 0.4 0.4 % Neutrophils # 5.7 4.9 (1.6-8.9) K/mcL Lymphocytes # 2.0 1.8 (0.6-4.6) K/mcL Monocytes # 1.1 0.7 (0.0-1.3) K/mcL Eosinophils # 0.4 0.7 H (0.0-0.6) K/mcL Basophils # 0.0 0.0 (0.0-0.2) K/mcL Reactive Lymphocytes Present A (Not Present) Platelet Estimate Normal (Normal) Large Platelets (Not Present) Immature Plt Fraction 3.1 (1.1-6.1) % Sodium 143 (136-145) mEq/L Potassium 3.9 (3.5-4.5) mEq/L Chloride 127 H (98-109) mEq/L Carbon Dioxide 9 L* (19-29) mEq/L BUN 23 H D (7-20) mg/dL Creatinine 1.63 H (0.57-1.11) mg/dL Est GFR ( Amer) 37 L (> 60) Est GFR (Non-Af Amer) 30 L (> 60) BUN/Creatinine Ratio 14 (6-26) Glucose 78 (70-99) mg/dL Calculated Osmolality 299 (280-300) Calcium 8.5 L (8.6-10.8) mg/dL Total Bilirubin (0.2-1.2) mg/dL AST (5-34) Units/L ALT (0-55) Units/L Alkaline Phosphatase (38-126) Units/L Serum Total Protein (6.0-8.3) g/dL Albumin 3.1 L (3.5-5.0) g/dL Globulin (2.4-3.5) g/dL Albumin/Globulin Ratio (1.1-2.2) Stool Occult Blood (Negative) Specimen Rejected 05/12/16 05/12/16 Range/Units 06:11 06:11 WBC 6.6 (4.3-11.1) K/mcL RBC 3.63 L (3.82-4.97) M/mcL Hgb 11.3 L (11.5-15.4) g/dL Hct 35.3 (35.3-44.9) % MCV 97.2 (83.0-100.0) fL MCH 31.1 (28.0-33.3) pg MCHC 32.0 (31.6-35.5) g/dL RDW 14.8 H (11.5-14.5) % Plt Count 139 L (140-400) K/mcL MPV 10.3 (9.4-12.4) fL Immature Gran % 0.6 (0-4) % Seg Neutrophils % 52.4 % Lymphocytes % 29.6 % Monocytes % 9.5 % Eosinophils % 7.4 % Basophils % 0.5 % Neutrophils # 3.5 (1.6-8.9) K/mcL Lymphocytes # 2.0 (0.6-4.6) K/mcL Monocytes # 0.6 (0.0-1.3) K/mcL Eosinophils # 0.5 (0.0-0.6) K/mcL Basophils # 0.0 (0.0-0.2) K/mcL Reactive Lymphocytes Present A (Not Present) Platelet Estimate Normal (Normal) Large Platelets Present A (Not Present) Immature Plt Fraction (1.1-6.1) % Sodium 143 (136-145) mEq/L Potassium 3.2 L (3.5-4.5) mEq/L Chloride 119 H (98-109) mEq/L Carbon Dioxide 17 L (19-29) mEq/L BUN 16 (7-20) mg/dL Creatinine 1.24 H (0.57-1.11) mg/dL Est GFR ( Amer) 50 L (> 60) Est GFR (Non-Af Amer) 41 L (> 60) BUN/Creatinine Ratio 13 (6-26) Glucose 91 (70-99) mg/dL Calculated Osmolality 297 (280-300) Calcium 8.2 L (8.6-10.8) mg/dL Total Bilirubin (0.2-1.2) mg/dL AST (5-34) Units/L ALT (0-55) Units/L Alkaline Phosphatase (38-126) Units/L Serum Total Protein (6.0-8.3) g/dL Albumin 2.8 L (3.5-5.0) g/dL Globulin (2.4-3.5) g/dL Albumin/Globulin Ratio (1.1-2.2) Stool Occult Blood (Negative) Specimen Rejected
[2016-05-12] MEDS: Melatonin 3 MG TABLET PO SCH (21:08)
[2016-05-12] MEDS: metroNIDAZOLE 500 MG TABLET PO SCH (21:09)
[2016-05-13] MEDS: Sodium Bicarbonate 150 MEQ in D5% in Water 1,000 ML IVC SCH ×2 (01:25)
[2016-05-13 05:22] LABS: Basophils % 0.4 %; Eosinophils # 0.5 K/mcL (0.0-0.6); Eosinophils % 6.1 %; Hematocrit 35.5 % (35.3-44.9); Hemoglobin 11.7 g/dL (11.5-15.4); Immature Granulocytes % 0.7 % (0-4); Lymphocytes # 2.5 K/mcL (0.6-4.6); Mean Platelet Volume 10.5 fL (9.4-12.4); Monocytes # 0.7 K/mcL (0.0-1.3); Monocytes % 9.8 %; Neutrophils # 3.6 K/mcL (1.6-8.9); Platelet Count 130 K/mcL (140-400); Red Blood Count 3.66 M/mcL (3.82-4.97); Red Cell Distribution Width 14.6 % (11.5-14.5)
[2016-05-13 05:34] LABS: Calcium 8.6 mg/dL (8.6-10.8); Potassium 3.7 mEq/L (3.5-4.5)
[2016-05-13 05:46] LABS: Platelet Estimate Normal (Normal)
[2016-05-13 05:47] LABS: Reactive Lymphocytes Present (Not Present)
[2016-05-13] MEDS: *HR* Heparin 5,000 UNIT/ML VIAL SQ SCH ×3 (06:17→17:31)
[2016-05-13] MEDS: 0.9 % Sodium Chloride 1,000 ML IVC SCH (07:01)
[2016-05-13] MEDS: MetroNIDAZOLE 500 MG/100 ML 500 MG/100 ML BAG IVPB SCH (07:05)
[2016-05-13] MEDS: Nystatin Cream 15 GM TUBE TP PRN (08:50)
[2016-05-13] MEDS: Aspirin Enteric Coated 81 MG Tablet PO SCH (09:02)
[2016-05-13] MEDS: metroNIDAZOLE 500 MG TABLET PO SCH ×3 (09:02→20:02)
[2016-05-13] MEDS: Cholecalciferol (D-3) 1,000 UNIT TABLET PO SCH (09:02)
[2016-05-13] MEDS: Metoprolol XL (24 HR) Succ 25 MG TAB.ER.24H PO SCH (09:02)
--- NOTE | 2016-05-13 13:59 | Discharge Summary ---
Date of Encounter: 05/13/16 Time of Encounter: 13:52 - Discharge Diagnosis (1) C. 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 - Cyclical vomiting, not intractable (5) CKD (chronic kidney disease) stage 3, GFR 30-59 ml/min Priority: Secondary Status: Acute (6) DVT prophylaxis Priority: Secondary Status: Acute - Discharge Medications Prescriptions: MetroNIDAZOLE [Flagyl] 500 mg PO TID #24 tablet Home Medications: Aspirin Enteric Coated [Aspirin EC] 81 mg PO DAILY 09/06/15 [History] Ca/D3/Mag#11/Zinc/Licensed Chemical Spray Technician/Leonardo/Bor [Caltrate 600+D Plus Tablet] 1 tab PO BID [History] Cholecalciferol (D-3) [Vitamin D] 2,000 unit PO DAILY 09/06/15 [History] Lansoprazole [Prevacid] 30 mg PO DAILY 09/06/15 [History] Levothyroxine [Synthroid] 75 mcg PO DAILY 09/06/15 [History] Multivit-Min/Iron/Folic/Lutein [Centrum Silver Women Tablet] 1 tab PO DAILY [History] Metoprolol XL (24 HR) Succ [Toprol Xl] 25 mg PO DAILY tab.er.24h 09/11/15 [Rx] Vit C/E/Zn/Coppr/Lutein/Zeaxan [Preservision Areds 2 Softgel] 1 cap PO BID 11/18 [History] Nystatin Cream [Mycostatin Cream] 1 appl TP BID PRN 01/28/16 [History] Meclizine [Antivert] 12.5 - 25 mg PO DAILY PRN 05/07/16 [History] Oxybutynin Chloride [Ditropan Xl] 10 mg PO HS 05/07/16 [History] MetroNIDAZOLE [Flagyl] 500 mg PO TID #24 tablet 05/13/16 [Rx] Allergies/Adverse Reactions: Allergies azithromycin Allergy (Verified 11/19/15 11:15) Rash ketoconazole Allergy (Verified 11/19/15 11:15) Rash methylprednisolone Allergy (Verified 11/19/15 11:15) Blister Penicillins Allergy (Verified 11/19/15 11:15) Rash tramadol Adverse Reaction (Verified 11/19/15 11:15) Nausea Date of admission: 05/08/16 09:05 Primary care physician: Sho Christina CNP Consults: 05/10/16 09:40 Consult to Physical Therapy [CONS] Routine Comment: Evaluate, develop and implement POC 05/10/16 09:41 Consult to Occupational Therapy [CONS] Routine Comment: Evaluate, develop and implement POC Consult to Elevator Repair Mechanic [CONS] Routine Reason for SW Consult: Patients daughter states she has HH [facility] 05/11/16 07:56 Consult to Invasive Line Access Team [CONS] Routine Reason for Consult: Limited IV access Line Type: EPIV Discharging clinician: Tadeo Conroy Anticipated date of discharge: 05/14/16 - Patient Status Disposition: Transfer SNF Condition: Good Functional capacity at discharge: uses cane/walker Overall status at discharge: patient is progressing back to baseline - Discharge Instructions Instructions: Acute Kidney Injury (DC), Clostridium Difficile Infection (DC) Follow Up With: Sho Christina CNP [Primary Care Provider] - 05/27/16 1:30 pm - Diet and Activity Activity: as per physical therapy Diet: diabetic diet, low fat, low cholesterol, low salt diet Hospital course: Ms. Mosher is a 81 year old female with a history of congestive heart failure, CVA, recurrent UTI, DVT, hypothyroidism was admitted here with Some Diarrhea. She Has Recently Completed a Course of Ciprofloxacin for UTI. She Was Diagnosed with C. difficile. She was treated for this with Flagyl intravenously. She has had good improvement with this medication. Her frequency of diarrhea has significantly improved. She is having more formed stools now. She has been transitioned to oral Flagyl and is tolerating it well. At this time, she is stable to be discharged. She was evaluated by physical therapy and recommended placement secondary to general weakness. production worker is currently working on this for the patient. Patient will be discharged once this has been arranged. During his stay here, she did have she also had acute kidney injury and chronic kidney disease. This has improved after she received IV fluids. She did developed hyperchloremic acidosis with hydration. This has now been corrected. - Time Spent with Patient Total time spent providing and/or coordinating discharge services: Greater than 30 minutes (45 min) - Constitutional Vitals: Temp Pulse Resp BP Pulse Ox 98.3 F 63 19 147/64 93 L 05/13/16 11:24 05/13/16 11:24 05/13/16 11:24 05/13/16 11:24 05/13/16 11:24 General appearance: Present: cooperative, A&O X 2, answers questions appropriately - Respiratory Respiratory exam: Present: CTAB. Absent: accessory muscle use, rales, rhonchi, wheezes - Cardiovascular Cardiovascular exam: Present: RRR, +S1, +S2. Absent: diastolic murmur, gallop, rubs, systolic murmur - GI/Abdominal GI/Abdominal exam: Present: normal bowel sounds, soft, no peritoneal signs. Absent: distended, tenderness - Extremities Exam Extremities exam: Present: warm, radial pulses palpable and symetrical. Absent : calf tenderness, cyanotic, pedal edema - Neurological Exam Neurological exam: Present: CN II-XII intact, oriented X3, no focal deficits. Absent: facial droop, speech deficit - Psychiatric Psychiatric exam: Present: normal affect, normal mood - Skin Skin exam: Present: dry, intact - Attending Attestation This document has been at least partially created by [employer] recognition technology by Dr. Conroy. Errors in grammar, wording or other phrases may exist. If errors are found after the documentation is signed, they will be addressed individually in the addendum section of this document when appropriate.
--- NOTE | 2016-05-13 14:06 | Physician Discharge Referral ---
ExtendedCare Referral Info Transfer To: SNF Provider in Charge after Transfer: PCP Institutional Level of Care: Skilled - Diagnosis (1) C. difficile diarrhea Priority: Primary Status: Acute (2) Acidosis, hyperchloremic Priority: Secondary Status: Acute (3) Acute renal failure (ARF) Priority: Secondary Status: Acute (4) Nausea and vomiting Priority: Secondary Status: Resolved (5) CKD (chronic kidney disease) stage 3, GFR 30-59 ml/min Priority: Secondary Status: Acute (6) DVT prophylaxis Priority: Secondary Status: Acute Prognosis: Fair Aware of Diagnosis: Family Aware of Prognosis: Family - Transfer Medications Prescriptions: MetroNIDAZOLE [Flagyl] 500 mg PO TID #24 tablet Home Medications: Aspirin Enteric Coated [Aspirin EC] 81 mg PO DAILY 09/06/15 [History] Ca/D3/Mag#11/Zinc/Grease Rack Worker/Leonardo/Bor [Caltrate 600+D Plus Tablet] 1 tab PO BID [History] Cholecalciferol (D-3) [Vitamin D] 2,000 unit PO DAILY 09/06/15 [History] Lansoprazole [Prevacid] 30 mg PO DAILY 09/06/15 [History] Levothyroxine [Synthroid] 75 mcg PO DAILY 09/06/15 [History] Multivit-Min/Iron/Folic/Lutein [Centrum Silver Women Tablet] 1 tab PO DAILY [History] Metoprolol XL (24 HR) Succ [Toprol Xl] 25 mg PO DAILY tab.er.24h 09/11/15 [Rx] Vit C/E/Zn/Coppr/Lutein/Zeaxan [Preservision Areds 2 Softgel] 1 cap PO BID 11/18 [History] Nystatin Cream [Mycostatin Cream] 1 appl TP BID PRN 01/28/16 [History] Meclizine [Antivert] 12.5 - 25 mg PO DAILY PRN 05/07/16 [History] Oxybutynin Chloride [Ditropan Xl] 10 mg PO HS 05/07/16 [History] MetroNIDAZOLE [Flagyl] 500 mg PO TID #24 tablet 05/13/16 [Rx] Allergies/Adverse Reactions: Allergies azithromycin Allergy (Verified 11/19/15 11:15) Rash ketoconazole Allergy (Verified 11/19/15 11:15) Rash methylprednisolone Allergy (Verified 11/19/15 11:15) Blister Penicillins Allergy (Verified 11/19/15 11:15) Rash tramadol Adverse Reaction (Verified 11/19/15 11:15) Nausea - Respiratory Orders Smoking Cessation: Smoking cessation has been advised. For more information, call the [place] Tobacco Quit Line at 4-618-MZJJ-NOW. - Ancillary Orders May use pressure relief devices daily prn - Advance Directives Code Status: DNR-Arrest (DNR CC Arrest) - Mobility Orders Ambulate (per PT/OT) - Rehabiliation Orders Rehab Orders: Evaluation for Physical Therapy, Evaluation for Occupational Therapy - Diet Orders No Added Salt (PARISH), No Concentrated Sweets, Cardiac (Diabetic) CERTIFICATION: I certify that the transfer of the above named patient to an Extended Care Facility is necessary for the continuing treatment of the diagnosis listed. The above information is true and accurate reflection of patient's current condition. Confidential - Redisclosure prohibited without a patient's written consent.
[2016-05-13] MEDS: Melatonin 3 MG TABLET PO SCH (20:02)
[2016-05-14 04:03] LABS: Basophils % 0.4 %; Eosinophils # 0.5 K/mcL (0.0-0.6); Eosinophils % 5.6 %; Hematocrit 35.9 % (35.3-44.9); Hemoglobin 11.6 g/dL (11.5-15.4); Immature Granulocytes % 1.4 % (0-4); Lymphocytes # 2.5 K/mcL (0.6-4.6); Lymphocytes % 27.5 %; Mean Corpuscular HGB Conc 32.3 g/dL (31.6-35.5); Mean Corpuscular Hemoglobin 31.1 pg (28.0-33.3); Mean Corpuscular Volume 96.2 fL (83.0-100.0); Mean Platelet Volume 10.3 fL (9.4-12.4); Monocytes # 0.8 K/mcL (0.0-1.3); Neutrophils # 5.1 K/mcL (1.6-8.9); Platelet Count 130 K/mcL (140-400); Red Blood Count 3.73 M/mcL (3.82-4.97); Red Cell Distribution Width 14.8 % (11.5-14.5); Segmented Neutrophils % 56.1 %
[2016-05-14 04:22] LABS: Platelet Estimate Normal (Normal)
[2016-05-14 04:42] LABS: Calcium 8.9 mg/dL (8.6-10.8); Potassium 4.2 mEq/L (3.5-4.5)
[2016-05-14] MEDS: *HR* Heparin 5,000 UNIT/ML VIAL SQ SCH (06:04)
[2016-05-14 07:00] VITALS: BP 152/84
[2016-05-14] MEDS: Aspirin Enteric Coated 81 MG Tablet PO SCH (07:35)
[2016-05-14] MEDS: metroNIDAZOLE 500 MG TABLET PO SCH (07:35)
[2016-05-14] MEDS: Cholecalciferol (D-3) 1,000 UNIT TABLET PO SCH (07:36)
[2016-05-14] MEDS: Metoprolol XL (24 HR) Succ 25 MG TAB.ER.24H PO SCH (07:36)
--- NOTE | 2016-05-14 13:32 | Internal Med Progress Note ---
Date of Encounter: 05/14/16 Time of Encounter: 09:15 - Assessment and plan (1) C. difficile diarrhea Status: Acute Assessment and plan: Improving. On oral Flagyl. Complete treatment course for 14 days. Patient will be discharged to rehabilitation today (2) Acidosis, hyperchloremic Status: Resolved (3) Acute renal failure (ARF) Status: Resolved Qualifiers: Acute renal failure type: unspecified Qualified Code(s): N17.9 - Acute kidney failure, unspecified (4) Nausea and vomiting Status: Resolved Qualifiers: Vomiting type: cyclical vomiting Vomiting Intractability: non-intractable Qualified Code(s): G43.A0 - Cyclical vomiting, not intractable (5) CKD (chronic kidney disease) stage 3, GFR 30-59 ml/min Status: Chronic (6) DVT prophylaxis Status: Acute - Subjective Interval history: Awake and alert. Denies any complaints at this time. Tolerating diet well. Having more formed stools. - Constitutional Vitals: Temp Pulse Resp BP Pulse Ox 98.2 F 68 20 152/84 92 L 05/14/16 06:52 05/14/16 06:52 05/14/16 06:52 05/14/16 06:52 05/14/16 06:52 General appearance: Present: cooperative, A&O X 2, answers questions appropriately - Respiratory Respiratory exam: Present: CTAB. Absent: accessory muscle use, rales, rhonchi, wheezes - Cardiovascular Cardiovascular exam: Present: RRR, +S1, +S2. Absent: diastolic murmur, gallop, rubs, systolic murmur - Extremities Exam Extremities exam: Present: warm, radial pulses palpable and symetrical. Absent : calf tenderness, cyanotic, pedal edema Internal Medicine: Result - Labs CBC & Chem 7: 05/14/16 03:44 05/14/16 03:44 Labs: Short CBC 05/14/16 Range/Units 03:44 WBC 9.1 (4.3-11.1) K/mcL Hgb 11.6 (11.5-15.4) g/dL Hct 35.9 (35.3-44.9) % Plt Count 130 L (140-400) K/mcL Neutrophils # 5.1 (1.6-8.9) K/mcL BMP 05/14/16 03:44 Sodium 144 Potassium 4.2 Chloride 113 H Carbon Dioxide 25 BUN 12 Creatinine 1.07 Glucose 110 H Calcium 8.9 Consult Discharge Plan - Plan Instructions: Acute Kidney Injury (DC), Clostridium Difficile Infection (DC) Prescriptions: MetroNIDAZOLE [Flagyl] 500 mg PO TID #24 tablet - Attending Attestation This document has been at least partially created by [employer] recognition technology by Dr. Conroy. Errors in grammar, wording or other phrases may exist. If errors are found after the documentation is signed, they will be addressed individually in the addendum section of this document when appropriate. Medical Decision Making - MDM Narrative Medical decision making narrative: Low risk for complications - Lab Data Lab results reviewed: Yes I reviewed the patient's lab results. Result diagrams: 05/14/16 03:44 05/14/16 03:44 Lab Results 05/09/16 05/09/16 05/09/16 Range/Units 15:15 16:56 16:56 WBC (4.3-11.1) K/mcL RBC (3.82-4.97) M/mcL Hgb (11.5-15.4) g/dL Hct (35.3-44.9) % MCV (83.0-100.0) fL MCH (28.0-33.3) pg MCHC (31.6-35.5) g/dL RDW (11.5-14.5) % Plt Count (140-400) K/mcL MPV (9.4-12.4) fL Immature Gran % (0-4) % Seg Neutrophils % % Lymphocytes % % Monocytes % % Eosinophils % % Basophils % % Neutrophils # (1.6-8.9) K/mcL Lymphocytes # (0.6-4.6) K/mcL Monocytes # (0.0-1.3) K/mcL Eosinophils # (0.0-0.6) K/mcL Basophils # (0.0-0.2) K/mcL Reactive Lymphocytes (Not Present) Platelet Estimate (Normal) Large Platelets (Not Present) Immature Plt Fraction (1.1-6.1) % Sodium 146 H (136-145) mEq/L Potassium 4.8 H (3.5-4.5) mEq/L Chloride 126 H D (98-109) mEq/L Carbon Dioxide 9 L* (19-29) mEq/L BUN 36 H (7-20) mg/dL Creatinine 2.34 H (0.57-1.11) mg/dL Est GFR ( Amer) 24 L (> 60) Est GFR (Non-Af Amer) 20 L (> 60) BUN/Creatinine Ratio 15 (6-26) Glucose 101 H (70-99) mg/dL Calculated Osmolality 310 H (280-300) Calcium 8.6 (8.6-10.8) mg/dL Total Bilirubin 0.2 (0.2-1.2) mg/dL AST 46 H (5-34) Units/L ALT 27 (0-55) Units/L Alkaline Phosphatase 64 (38-126) Units/L Serum Total Protein 7.6 D (6.0-8.3) g/dL Albumin 3.3 L D (3.5-5.0) g/dL Globulin 4.3 H (2.4-3.5) g/dL Albumin/Globulin Ratio 0.8 L (1.1-2.2) Stool Occult Blood Negative (Negative) Specimen Rejected Clotted 05/09/16 05/11/16 05/11/16 Range/Units 18:25 03:46 03:46 WBC 9.3 8.1 (4.3-11.1) K/mcL RBC 4.00 3.87 (3.82-4.97) M/mcL Hgb 12.7 D 12.4 (11.5-15.4) g/dL Hct 40.8 40.0 (35.3-44.9) % MCV 102.0 H 103.4 H (83.0-100.0) fL MCH 31.8 32.0 (28.0-33.3) pg MCHC 31.1 L 31.0 L (31.6-35.5) g/dL RDW 15.4 H 15.2 H (11.5-14.5) % Plt Count 186 160 (140-400) K/mcL MPV 10.3 10.2 (9.4-12.4) fL Immature Gran % 0.6 0.5 (0-4) % Seg Neutrophils % 61.4 60.4 % Lymphocytes % 20.9 21.7 % Monocytes % 12.1 8.7 % Eosinophils % 4.6 8.3 % Basophils % 0.4 0.4 % Neutrophils # 5.7 4.9 (1.6-8.9) K/mcL Lymphocytes # 2.0 1.8 (0.6-4.6) K/mcL Monocytes # 1.1 0.7 (0.0-1.3) K/mcL Eosinophils # 0.4 0.7 H (0.0-0.6) K/mcL Basophils # 0.0 0.0 (0.0-0.2) K/mcL Reactive Lymphocytes Present A (Not Present) Platelet Estimate Normal (Normal) Large Platelets (Not Present) Immature Plt Fraction 3.1 (1.1-6.1) % Sodium 143 (136-145) mEq/L Potassium 3.9 (3.5-4.5) mEq/L Chloride 127 H (98-109) mEq/L Carbon Dioxide 9 L* (19-29) mEq/L BUN 23 H D (7-20) mg/dL Creatinine 1.63 H (0.57-1.11) mg/dL Est GFR ( Amer) 37 L (> 60) Est GFR (Non-Af Amer) 30 L (> 60) BUN/Creatinine Ratio 14 (6-26) Glucose 78 (70-99) mg/dL Calculated Osmolality 299 (280-300) Calcium 8.5 L (8.6-10.8) mg/dL Total Bilirubin (0.2-1.2) mg/dL AST (5-34) Units/L ALT (0-55) Units/L Alkaline Phosphatase (38-126) Units/L Serum Total Protein (6.0-8.3) g/dL Albumin 3.1 L (3.5-5.0) g/dL Globulin (2.4-3.5) g/dL Albumin/Globulin Ratio (1.1-2.2) Stool Occult Blood (Negative) Specimen Rejected 05/12/16 05/12/16 05/13/16 Range/Units 06:11 06:11 04:06 WBC 6.6 7.4 (4.3-11.1) K/mcL RBC 3.63 L 3.66 L (3.82-4.97) M/mcL Hgb 11.3 L 11.7 (11.5-15.4) g/dL Hct 35.3 35.5 (35.3-44.9) % MCV 97.2 97.0 (83.0-100.0) fL MCH 31.1 32.0 (28.0-33.3) pg MCHC 32.0 33.0 (31.6-35.5) g/dL RDW 14.8 H 14.6 H (11.5-14.5) % Plt Count 139 L 130 L (140-400) K/mcL MPV 10.3 10.5 (9.4-12.4) fL Immature Gran % 0.6 0.7 (0-4) % Seg Neutrophils % 52.4 49.0 % Lymphocytes % 29.6 34.0 % Monocytes % 9.5 9.8 % Eosinophils % 7.4 6.1 % Basophils % 0.5 0.4 % Neutrophils # 3.5 3.6 (1.6-8.9) K/mcL Lymphocytes # 2.0 2.5 (0.6-4.6) K/mcL Monocytes # 0.6 0.7 (0.0-1.3) K/mcL Eosinophils # 0.5 0.5 (0.0-0.6) K/mcL Basophils # 0.0 0.0 (0.0-0.2) K/mcL Reactive Lymphocytes Present A Present A (Not Present) Platelet Estimate Normal Normal (Normal) Large Platelets Present A (Not Present) Immature Plt Fraction (1.1-6.1) % Sodium 143 (136-145) mEq/L Potassium 3.2 L (3.5-4.5) mEq/L Chloride 119 H (98-109) mEq/L Carbon Dioxide 17 L (19-29) mEq/L BUN 16 (7-20) mg/dL Creatinine 1.24 H (0.57-1.11) mg/dL Est GFR ( Amer) 50 L (> 60) Est GFR (Non-Af Amer) 41 L (> 60) BUN/Creatinine Ratio 13 (6-26) Glucose 91 (70-99) mg/dL Calculated Osmolality 297 (280-300) Calcium 8.2 L (8.6-10.8) mg/dL Total Bilirubin (0.2-1.2) mg/dL AST (5-34) Units/L ALT (0-55) Units/L Alkaline Phosphatase (38-126) Units/L Serum Total Protein (6.0-8.3) g/dL Albumin 2.8 L (3.5-5.0) g/dL Globulin (2.4-3.5) g/dL Albumin/Globulin Ratio (1.1-2.2) Stool Occult Blood (Negative) Specimen Rejected 05/13/16 05/14/16 05/14/16 Range/Units 04:06 03:44 03:44 WBC 9.1 (4.3-11.1) K/mcL RBC 3.73 L (3.82-4.97) M/mcL Hgb 11.6 (11.5-15.4) g/dL Hct 35.9 (35.3-44.9) % MCV 96.2 (83.0-100.0) fL MCH 31.1 (28.0-33.3) pg MCHC 32.3 (31.6-35.5) g/dL RDW 14.8 H (11.5-14.5) % Plt Count 130 L (140-400) K/mcL MPV 10.3 (9.4-12.4) fL Immature Gran % 1.4 (0-4) % Seg Neutrophils % 56.1 % Lymphocytes % 27.5 % Monocytes % 9.0 % Eosinophils % 5.6 % Basophils % 0.4 % Neutrophils # 5.1 (1.6-8.9) K/mcL Lymphocytes # 2.5 (0.6-4.6) K/mcL Monocytes # 0.8 (0.0-1.3) K/mcL Eosinophils # 0.5 (0.0-0.6) K/mcL Basophils # 0.0 (0.0-0.2) K/mcL Reactive Lymphocytes (Not Present) Platelet Estimate Normal (Normal) Large Platelets (Not Present) Immature Plt Fraction (1.1-6.1) % Sodium 146 H 144 (136-145) mEq/L Potassium 3.7 4.2 (3.5-4.5) mEq/L Chloride 115 H 113 H (98-109) mEq/L Carbon Dioxide 23 25 (19-29) mEq/L BUN 12 12 (7-20) mg/dL Creatinine 1.11 1.07 (0.57-1.11) mg/dL Est GFR ( Amer) 57 L 59 L (> 60) Est GFR (Non-Af Amer) 47 L 49 L (> 60) BUN/Creatinine Ratio 11 11 (6-26) Glucose 101 H 110 H (70-99) mg/dL Calculated Osmolality 302 H 298 (280-300) Calcium 8.6 8.9 (8.6-10.8) mg/dL Total Bilirubin (0.2-1.2) mg/dL AST (5-34) Units/L ALT (0-55) Units/L Alkaline Phosphatase (38-126) Units/L Serum Total Protein (6.0-8.3) g/dL Albumin (3.5-5.0) g/dL Globulin (2.4-3.5) g/dL Albumin/Globulin Ratio (1.1-2.2) Stool Occult Blood (Negative) Specimen Rejected
== END 2016-05-14 10:11 | DRG 372 ==
LOC: 3BNU 19:04 → EMEROO 19:04 → 3BNU 23:14 → SUATTDRO 05-08 09:05 → 3BNU 05-08 19:51
PROVIDERS: ADMIT Family Medicine; ATTEND Internal Medicine

== ENCOUNTER 2016-06-04 16:14 | Observation (INO) ==
--- NOTE | 2016-06-04 17:10 | Emergency Department Note ---
Disposition Clinical Impression: DVT (deep venous thrombosis) Qualifiers: DVT location: lower extremity Affected thrombotic vein of extremity: iliac Laterality: left Chronicity: acute Qualified Code(s): I82.422 - Acute embolism and thrombosis of left iliac vein Disposition: Admitted As Inpatient Condition: Good Time of Disposition: 18:13 General Adult HPI - General Chief complaint: ED Recheck/Abnormal Lab/Rx Stated complaint: DVT L leg Time Seen by Provider: 06/04/16 16:35 Source: patient, family Limitations: no limitations Nursing Notes Reviewed: Yes Vital Signs Reviewed: Yes - History of Present Illness HPI Narrative: Mrs. Mosher, an 81yo female, presents from outpatient ultrasound with LLE DVT x3. Patient discharged from this facility 14 May 2016 with C. Diff colitis. Was discharged to alf. Was complaining of LLE pain prior to discharge from alf. No evaluation was done. She followed up with her PCP today who ordered an outpatient LLE venous ultrasound which subsequently found DVT x2. She presents from outpatient ultrasound. Patient was previously on warfarin. This was discontinued as she was considered a fall risk. PMH: CHF, GERD. Hx DVT 10-12 yrs ago. Pain Scale: 9 - Related Data Home Medications Medication Instructions Recorded Confirmed Aspirin Enteric Coated [Aspirin EC] 81 mg PO DAILY 09/06/15 06/04/16 Ca/D3/Mag#11/Zinc/Furnace Reliner/Leonardo/Bor 1 tab PO BID 09/06/15 06/04/16 [Caltrate 600+D Plus Tablet] Cholecalciferol (D-3) [Vitamin D] 2,000 unit PO DAILY 09/06/15 06/04/16 Lansoprazole [Prevacid] 30 mg PO DAILY 09/06/15 06/04/16 Levothyroxine [Synthroid] 75 mcg PO DAILY 09/06/15 06/04/16 Multivit-Min/Iron/Folic/Lutein 1 tab PO DAILY 09/06/15 06/04/16 [Centrum Silver Women Tablet] Vit C/E/Zn/Coppr/Lutein/Zeaxan 1 cap PO BID 11/19/15 06/04/16 [Preservision Areds 2 Softgel] Nystatin Cream [Mycostatin Cream] 1 appl TP BID PRN 01/28/16 06/04/16 Meclizine [Antivert] 12.5 - 25 mg PO DAILY PRN 05/07/16 06/04/16 Oxybutynin Chloride [Ditropan Xl] 10 mg PO HS 05/07/16 06/04/16 L. Acidophilus/Pectin, [place] 1 each PO DAILY 06/04/16 06/04/16 [Acidophilus Probiotic Capsule] Mineral Oil/Petrolatum,White 1 appl OP HS 06/04/16 06/04/16 [Refresh P.m. Ointment] Previous Rx's Medication Instructions Recorded Metoprolol XL (24 HR) Succ [Toprol 25 mg PO DAILY tab.er.24h 09/11/15 Xl] Furosemide [Lasix] 20 mg PO DAILY 30 Days 06/08/16 Nitrofurantoin (BID) [Macrobid] 100 mg PO BID #20 capsule 06/08/16 Warfarin [Coumadin] 5 mg PO DAILY@1800 #30 tablet 06/08/16 Allergies Allergy/AdvReac Type Severity Reaction Status Date / Time azithromycin Allergy Rash Verified 11/19/15 11:15 ketoconazole Allergy Rash Verified 11/19/15 11:15 methylprednisolone Allergy Blister Verified 11/19/15 11:15 Penicillins Allergy Rash Verified 11/19/15 11:15 tramadol AdvReac Nausea Verified 11/19/15 11:15 Past Medical History - Past Medical History Medical history: Reports: aortic aneurysm, cancer, CHF, CVA, DVT, GERD, thyroid disease Surgical history: Reports: cholecystectomy, colectomy (partial), hysterectomy, other Psychiatric history: Reports: no psych history STATIONARY STEAM ENGINEER history: Reports: no STATIONARY STEAM ENGINEER history - Social History Smoking Status: Former smoker Smokeless Tobacco Status: No Alcohol use: Reports: none Drug use: Reports: none Physical Exam - General Limitations: no limitations General appearance: alert Course Course Narrative: US report from this afternoon shows: Partially occlusive thrombus of left distal iliac. Partly compressible. Flow is continuous and it did not augment. Partially occlusive thrombus in left common femoral. Incompressible. Flow is continuous and it did not augment. Occlusive thrombus in left popliteal vein. In compressible. Flow was absent and it did not augment. Full patency with normal compressibility of left superficial femoral, left posterior tibial, left peroneal, left great saphenous, and left lesser saphenous. Right common femoral exhibited full patency with normal vessel compressibility. We will begin patient on therapeutic dose Lovenox. Discussed with the patient and her daughter at bedside regarding admission versus going home. We discussed in detail the need for anticoagulation, why anticoagulation is appropriate for her DVT, and the risks associated with it. It was during this conversation that I learned she was previously on anticoagulation with warfarin was discontinued over suspicion of a fall. Future decision making, we agreed to bring the patient into the hospital. We will page the hospitalist. [address] Weems. He agrees to accept the patient. Vital Signs Temperature 97.9 F 06/04/16 16:30 Pulse Rate 87 06/04/16 16:30 Respiratory Rate 16 06/04/16 16:30 Blood Pressure 118/74 06/04/16 16:30 O2 Sat by Pulse Oximetry 93 L 06/04/16 16:30 Temperature 97.8 F 06/08/16 07:18 Pulse Rate 81 06/08/16 07:18 Respiratory Rate 14 06/08/16 07:18 Blood Pressure 130/73 06/08/16 07:18 O2 Sat by Pulse Oximetry 91 L 06/08/16 07:18 Oxygen Delivery Oxygen Delivery Room Air Medical Decision Making - Lab Data Result diagrams: 06/08/16 08:46 06/08/16 08:46 Attestation Statement - Attestation Attestation: I examined this patient and my medical decision-making was reviewed with the Resident Physician. I agree with the documented findings, disposition and treatment plan as described except to the extent set forth below. Iliofemoral plus popliteal DVT. Does not meet criteria for outpatient treament. Therpaeutic anticoagulation started in ED, admitted. No sx of PE.
[2016-06-04] MEDS ORDERED: *HR* Enoxaparin 80 MG/0.8 ML SYRINGE SQ STA (17:49)
--- NOTE | 2016-06-04 19:21 | Internal Med History&Physical ---
Date of Encounter: 06/04/16 Time of Encounter: 19:19 Assessment and Plan (1) Deep vein thrombosis (DVT) of left lower extremity Current visit: Yes Status: Acute Likely secondary to hypercoagulable state due to interruption of warfarin, triggered by decreased mobility and ambulation and chronic lower extremity stasis secondary to chronic heart failure. A hypercoagulable workup and workup for occult malignancy can be initiated after discharge. We will start patient on Lovenox and warfarin. Check INR daily. Monitor for bleeding. The patient is at very high risk for adverse effects due to extensive lower extremity DVT, anticoagulation therapy and risk for falls with injury. We will institute fall precautions, 1 person assist, PT and OT evaluation. Qualifiers: Affected thrombotic vein of extremity: femoral Chronicity: acute Qualified Code(s): I82.412 - Acute embolism and thrombosis of left femoral vein (2) Physical deconditioning Current visit: Yes Status: Acute PT OT evaluation. (3) Acute systolic (congestive) heart failure Current visit: No Status: Acute Continue home dose of Lasix. Moderate fluid restriction. (4) DVT prophylaxis Current visit: No Status: Acute We will be fully anticoagulated with Lovenox and warfarin. (5) CKD (chronic kidney disease) stage 3, GFR 30-59 ml/min Current visit: No Status: Chronic Monitor GFR. Check creatinine daily. Avoid nephrotoxins. (6) Deep vein thrombosis (DVT) of left lower extremity Current visit: Yes Status: Acute Lovenox and warfarin. Qualifiers: Affected thrombotic vein of extremity: iliac Chronicity: acute Qualified Code(s): I82.422 - Acute embolism and thrombosis of left iliac vein (7) Deep vein thrombosis (DVT) of left lower extremity Current visit: Yes Status: Acute We will treat her with Lovenox and warfarin for goal INR of 2-3. Qualifiers: Affected thrombotic vein of extremity: popliteal Chronicity: acute Qualified Code(s): I82.432 - Acute embolism and thrombosis of left popliteal vein Internal Medicine - H&P: HPI Chief complaint: Left leg swelling and pain Admitted From: Emergency Dept Plans for Post Hospital Care: Home History of present illness: Ms. Mosher is a 81 year old female with multiple medical comorbidities pertinent for a history of DVT treated with anticoagulation with warfarin which was discontinued one month ago and who presented to the hospital for a left lower extremity swelling. She had an outpatient ultrasound ordered by her PCP which revealed the presence of DVT in the left lower extremity. She reports the swelling started 9 days ago, involved her left lower leg, initially it was mild but progressive, worse at night and with lying flat, associated with mild to moderate left lower extremity pain. At that time she was in a [facility], she was discharged home yesterday. The patient denies associated chest pain shortness of breath, bleeding and bruising, denies recent trauma to the lower extremities, denies recent falls, reports hearing impairment, no vision loss or double vision, no nausea vomiting or diarrhea. Family history positive for cancer in the patient's mother and 2 brothers, positive for blood clots and the patient's brother. Past Med Surg Social Fam HX - Past Medical History Medical history: aortic aneurysm, cancer, CHF, CVA, DVT, GERD, thyroid disease Psychiatric history: no psych history - Past Surgical History Surgical History: cholecystectomy, colectomy (partial), hysterectomy, other - Social History Smoking Status: Former smoker Smokeless Tobacco Status: No Alcohol use: none Drug use: none - Family History Daughter Adopted: No Family Member Ethnicity: Non- Living Status: Still Living Hx Family Cardiac Disorders: No Hx Family Respiratory Disorders: No Hx Family Cancer: No Hx Family GI Disorders: No Hx Family Endocrine Disorder: No Hx Family Neuromuscular Disorders: No Hx Family Neurologic Disorders: No Hx Family HEENT Disorders: Yes (glaucoma) Hx Family Autoimmune Disorders: No Mother Adopted: No Family Member Ethnicity: Non- Living Status: Hx Family Cancer: Yes Internal Medicine - H&P: Meds Aspirin Enteric Coated [Aspirin EC] 81 mg PO DAILY 09/06/15 [History] Ca/D3/Mag#11/Zinc/Test Preparer/Leonardo/Bor [Caltrate 600+D Plus Tablet] 1 tab PO BID [History] Cholecalciferol (D-3) [Vitamin D] 2,000 unit PO DAILY 09/06/15 [History] Lansoprazole [Prevacid] 30 mg PO DAILY 09/06/15 [History] Levothyroxine [Synthroid] 75 mcg PO DAILY 09/06/15 [History] Multivit-Min/Iron/Folic/Lutein [Centrum Silver Women Tablet] 1 tab PO DAILY [History] Metoprolol XL (24 HR) Succ [Toprol Xl] 25 mg PO DAILY tab.er.24h 09/11/15 [Rx] Vit C/E/Zn/Coppr/Lutein/Zeaxan [Preservision Areds 2 Softgel] 1 cap PO BID 11/18 [History] Nystatin Cream [Mycostatin Cream] 1 appl TP BID PRN 01/28/16 [History] Meclizine [Antivert] 12.5 - 25 mg PO DAILY PRN 05/07/16 [History] Oxybutynin Chloride [Ditropan Xl] 10 mg PO HS 05/07/16 [History] L. Acidophilus/Pectin, [place] [Acidophilus Probiotic Capsule] 1 each PO DAILY [History] Mineral Oil/Petrolatum,White [Refresh P.m. Ointment] 1 appl OP HS 06/04/16 [ History] Allergies azithromycin Allergy (Verified 11/19/15 11:15) Rash ketoconazole Allergy (Verified 11/19/15 11:15) Rash methylprednisolone Allergy (Verified 11/19/15 11:15) Blister Penicillins Allergy (Verified 11/19/15 11:15) Rash tramadol Adverse Reaction (Verified 11/19/15 11:15) Nausea All Systems PM: A 10-system review of systems was performed and is negative for pertinent findings except as documented above in the HPI. - Constitutional Vitals: Temp Pulse Resp BP Pulse Ox 97.9 F 84 17 150/77 90 L 06/04/16 16:30 06/04/16 17:42 06/04/16 19:00 06/04/16 19:00 06/04/16 17:42 General appearance: Present: A&O X 3 - Head Head exam: Present: atraumatic, normocephalic - Eye Eye exam: Present: PERRL, conjuntiva pink, sclera anicteric Pupils: Present: PERRL - Neck Neck exam general surgery: Present: supple, trachea midline. Absent: lymphadenopathy - Respiratory Respiratory exam: Present: CTAB, rales. Absent: accessory muscle use, rhonchi, wheezes Additional comments: By basilar crackles - Cardiovascular Cardiovascular exam: Present: RRR, +S1, +S2. Absent: diastolic murmur, gallop, rubs, systolic murmur - GI/Abdominal GI/Abdominal exam: Present: normal bowel sounds, soft, no peritoneal signs. Absent: distended, tenderness - Extremities Exam Extremities exam: Present: pedal edema, warm, radial pulses palpable and symetrical. Absent: calf tenderness, cyanotic - Neurological Exam Neurological exam: Present: CN II-XII intact, oriented X3, no focal deficits. Absent: pronater drift, facial droop, speech deficit - Skin Skin exam: Absent: abrasion, rash Additional comments: skin lesion L rastafarian, Internal Med - H&P Results - Labs Labs: Per chart review her creatinine in 05/14/2016 was 1.07, BUN 12, glucose 110, white blood cell count 9.1, hemoglobin 11.6, hematocrit 35.9, platelet count 130. - Impressions Per chart review her left lower extremity Doppler ultrasound reveals the presence of 3 DVTs and a left popliteal, left femoral and left iliac veins respectively. The study has been done today 06/04/2016
[2016-06-04] MEDS ORDERED: Acetaminophen 325 MG TABLET PO PRN (19:42)
[2016-06-04 20:22] LABS: Basophils # 0.1 K/mcL (0.0-0.2); Basophils % 0.7 %; Eosinophils % 9.6 %; Hematocrit 39.8 % (35.3-44.9); Hemoglobin 12.6 g/dL (11.5-15.4); Immature Granulocytes % 0.7 % (0-4); Lymphocytes # 2.9 K/mcL (0.6-4.6); Lymphocytes % 27.1 %; Mean Corpuscular HGB Conc 31.7 g/dL (31.6-35.5); Mean Corpuscular Hemoglobin 31.4 pg (28.0-33.3); Mean Corpuscular Volume 99.3 fL (83.0-100.0); Mean Platelet Volume 10.1 fL (9.4-12.4); Monocytes # 0.9 K/mcL (0.0-1.3); Monocytes % 8.5 %; Neutrophils # 5.7 K/mcL (1.6-8.9); Platelet Count 221 K/mcL (140-400); Red Blood Count 4.01 M/mcL (3.82-4.97); Segmented Neutrophils % 53.4 %
[2016-06-04 20:28] LABS: INR 1.1; Prothrombin Time 11.6 Seconds (9.4-12.1)
[2016-06-04 20:34] LABS: Calcium 9.5 mg/dL (8.6-10.8); Potassium 4.1 mEq/L (3.5-4.5)
--- NOTE | 2016-06-04 20:54 | Internal Med Progress Note ---
Date of Encounter: 06/04/16 - Assessment and plan (1) Deep vein thrombosis (DVT) of left lower extremity Current Visit: Yes Status: Acute Qualifiers: Affected thrombotic vein of extremity: femoral Chronicity: acute Qualified Code(s): I82.412 - Acute embolism and thrombosis of left femoral vein (2) Physical deconditioning Current Visit: Yes Status: Acute (3) Acute systolic (congestive) heart failure Current Visit: No Status: Acute (4) DVT prophylaxis Current Visit: No Status: Acute (5) CKD (chronic kidney disease) stage 3, GFR 30-59 ml/min Current Visit: No Status: Chronic (6) Deep vein thrombosis (DVT) of left lower extremity Current Visit: Yes Status: Acute Qualifiers: Affected thrombotic vein of extremity: iliac Chronicity: acute Qualified Code(s): I82.422 - Acute embolism and thrombosis of left iliac vein (7) Deep vein thrombosis (DVT) of left lower extremity Current Visit: Yes Status: Acute Qualifiers: Affected thrombotic vein of extremity: popliteal Chronicity: acute Qualified Code(s): I82.432 - Acute embolism and thrombosis of left popliteal vein - Constitutional Vitals: Temp Pulse Resp BP Pulse Ox 97.9 F 84 17 150/77 90 L 06/04/16 16:30 06/04/16 17:42 06/04/16 19:00 06/04/16 19:00 06/04/16 17:42 General appearance: Present: A&O X 3 Consult Discharge Plan - Plan Referrals: Sho Christina, [facility] [Primary Care Provider] -
[2016-06-04] MEDS: Lacri-Lube 3.5 GM TUBE OP SCH (21:02)
[2016-06-04] MEDS: *HR* Warfarin 5 MG TABLET PO SCH (21:02)
[2016-06-05 04:53] LABS: Basophils # 0.1 K/mcL (0.0-0.2); Basophils % 0.7 %; Eosinophils % 11.7 %; Hematocrit 38.2 % (35.3-44.9); Hemoglobin 11.9 g/dL (11.5-15.4); Immature Granulocytes % 0.9 % (0-4); Lymphocytes # 2.5 K/mcL (0.6-4.6); Mean Corpuscular HGB Conc 31.2 g/dL (31.6-35.5); Mean Corpuscular Hemoglobin 31.1 pg (28.0-33.3); Mean Corpuscular Volume 99.7 fL (83.0-100.0); Mean Platelet Volume 10.2 fL (9.4-12.4); Monocytes # 0.8 K/mcL (0.0-1.3); Monocytes % 10.1 %; Neutrophils # 3.7 K/mcL (1.6-8.9); Platelet Count 207 K/mcL (140-400); Red Blood Count 3.83 M/mcL (3.82-4.97); Red Cell Distribution Width 15.3 % (11.5-14.5); Segmented Neutrophils % 45.6 %
[2016-06-05 05:04] LABS: INR 1.1; Prothrombin Time 11.6 Seconds (9.4-12.1)
[2016-06-05 05:16] LABS: Potassium 3.9 mEq/L (3.5-4.5)
[2016-06-05 05:17] LABS: Calcium 9.2 mg/dL (8.6-10.8); Magnesium 1.7 mg/dL (1.6-2.6)
[2016-06-05] MEDS: *HR* Enoxaparin 80 MG/0.8 ML SYRINGE SQ SCH ×2 (05:22→17:27)
[2016-06-05] MEDS: Furosemide 20 MG TABLET PO SCH (08:51)
[2016-06-05] MEDS: Metoprolol XL (24 HR) Succ 25 MG TAB.ER.24H PO SCH (08:51)
[2016-06-05] MEDS: Aspirin Enteric Coated 81 MG Tablet PO SCH (08:51)
[2016-06-05] MEDS ORDERED: Furosemide 20 MG TABLET PO SCH (09:00)
--- NOTE | 2016-06-05 16:33 | Internal Med Progress Note ---
Date of Encounter: 06/05/16 Time of Encounter: 16:26 - Assessment and plan (1) Deep vein thrombosis (DVT) of left lower extremity Current Visit: Yes Status: Acute Assessment and plan: needs to be restarted on anticoagulation this is recurrent DVT, last one was many yrs ago and she does not remember if she had one or multiple/ will await therpeutic levels of INR, continue lovenox bridging until then does not c/o cheest pain or sob Qualifiers: Affected thrombotic vein of extremity: femoral Chronicity: acute Qualified Code(s): I82.412 - Acute embolism and thrombosis of left femoral vein (2) Physical deconditioning Current Visit: Yes Status: Acute Assessment and plan: fall risk and thus was stopped on coumadin ioana risk of having DVT and PE outweighs the risk of fall, thus will discuss with the patient about the importance on continuing AC at this time. may not be able to do rehab given DVT. should be assesed by PT/OT for the needs before dc. (3) Acute systolic (congestive) heart failure Current Visit: No Status: Acute Assessment and plan: Continue home dose of Lasix , asa, statin and BB Moderate fluid restriction. Last echo on 09/07/15 showed LVEF of 30-35% and moderate systolic dysfunction of the left ventricle. appears to be euvolemic at this time. (4) CKD (chronic kidney disease) stage 3, GFR 30-59 ml/min Current Visit: No Status: Chronic Assessment and plan: stable - Time Spent With Patient 25 - 35 minutes - Subjective Interval history: seen at the bedside, reports mild pain on her left leg, says that her coumadin was stopped by her PCP. review of the charts show that it was stopped because she is a high fall risk. she has been started on coumaidn with lovenox bridging. We will check INR daily, goal INR 2-3. - Constitutional Vitals: Temp Pulse Resp BP Pulse Ox 97.8 F 81 16 102/64 91 L 06/05/16 14:29 06/05/16 14:55 06/05/16 14:55 06/05/16 14:55 06/05/16 14:55 General appearance: Present: A&O X 3 Exam: - Head Head exam: Present: atraumatic, normocephalic - Eye Eye exam: Present: PERRL, conjuntiva pink, sclera anicteric Pupils: Present: PERRL - Neck Neck exam general surgery: Present: supple, trachea midline. Absent: lymphadenopathy - Respiratory Respiratory exam: Present: CTAB, rales. Absent: accessory muscle use, rhonchi, wheezes Additional comments: By basilar crackles - Cardiovascular Cardiovascular exam: Present: RRR, +S1, +S2. Absent: diastolic murmur, gallop, rubs, systolic murmur - GI/Abdominal GI/Abdominal exam: Present: normal bowel sounds, soft, no peritoneal signs. Absent: distended, tenderness - Extremities Exam Extremities exam: Present: pedal edema, warm, radial pulses palpable and symetrical., non tender Absent: calf tenderness, cyanotic - Neurological Exam Neurological exam: Present: CN II-XII intact, oriented X3, no focal deficits. Absent: pronater drift, facial droop, speech deficit Internal Medicine: Result - Labs CBC & Chem 7: 06/05/16 04:11 06/05/16 04:11 Labs: Short CBC 06/04/16 06/05/16 Range/Units 20:05 04:11 WBC 10.7 8.1 (4.3-11.1) K/mcL Hgb 12.6 11.9 (11.5-15.4) g/dL Hct 39.8 38.2 (35.3-44.9) % Plt Count 221 207 (140-400) K/mcL Neutrophils # 5.7 3.7 (1.6-8.9) K/mcL BMP 06/04/16 06/05/16 20:05 04:11 Sodium 141 141 Potassium 4.1 3.9 Chloride 105 104 Carbon Dioxide 22 24 BUN 13 13 Creatinine 1.44 H 1.20 H Glucose 134 H 102 H Calcium 9.5 9.2 - ABG Interpretation ABG results: PT/INR, D-dimer PT 11.6 Seconds (9.4-12.1) 06/05/16 04:11 Consult Discharge Plan - Plan Referrals: Sho Christina, [employer] [Primary Care Provider] -
[2016-06-05] MEDS: *HR* Warfarin 5 MG TABLET PO SCH (17:27)
[2016-06-05] MEDS: Lacri-Lube 3.5 GM TUBE OP SCH (21:38)
[2016-06-06] MEDS: *HR* Enoxaparin 80 MG/0.8 ML SYRINGE SQ SCH ×2 (06:04→17:01)
[2016-06-06 07:59] LABS: INR 1.3
[2016-06-06 08:04] LABS: Basophils # 0.1 K/mcL (0.0-0.2); Basophils % 0.9 %; Eosinophils # 0.9 K/mcL (0.0-0.6); Eosinophils % 10.7 %; Hematocrit 38.3 % (35.3-44.9); Lymphocytes # 2.2 K/mcL (0.6-4.6); Lymphocytes % 27.2 %; Mean Corpuscular HGB Conc 31.3 g/dL (31.6-35.5); Mean Corpuscular Hemoglobin 31.6 pg (28.0-33.3); Mean Corpuscular Volume 100.8 fL (83.0-100.0); Mean Platelet Volume 10.5 fL (9.4-12.4); Monocytes # 0.8 K/mcL (0.0-1.3); Monocytes % 9.4 %; Neutrophils # 4.1 K/mcL (1.6-8.9); Platelet Count 193 K/mcL (140-400); Red Cell Distribution Width 15.3 % (11.5-14.5); Segmented Neutrophils % 50.8 %
[2016-06-06] MEDS: Metoprolol XL (24 HR) Succ 25 MG TAB.ER.24H PO SCH (09:08)
[2016-06-06] MEDS: Furosemide 20 MG TABLET PO SCH (09:08)
[2016-06-06] MEDS: Aspirin Enteric Coated 81 MG Tablet PO SCH (09:08)
[2016-06-06] MEDS: *HR* Warfarin 5 MG TABLET PO SCH (17:01)
--- NOTE | 2016-06-06 17:56 | Internal Med Progress Note ---
Date of Encounter: 06/06/16 Time of Encounter: 17:54 - Assessment and plan (1) Deep vein thrombosis (DVT) of left lower extremity Current Visit: Yes Status: Acute Assessment and plan: needs to be restarted on anticoagulation this is recurrent DVT, last one was many yrs ago and she does not remember if she had one or multiple/ will await therpeutic levels of INR, continue lovenox bridging until then does not c/o cheest pain or sob Qualifiers: Affected thrombotic vein of extremity: femoral Chronicity: acute Qualified Code(s): I82.412 - Acute embolism and thrombosis of left femoral vein (2) Physical deconditioning Current Visit: Yes Status: Acute Assessment and plan: fall risk and thus was stopped on coumadin, however daughter says she actually never had a fall but was dizzy at one time. ioana risk of having DVT and PE outweighs the risk of fall, thus it was discussed with the patient and the daughter about the importance on continuing AC at this time. They agreed with anticoagulation. may not be able to do rehab given DVT. should be assesed by PT/OT for the needs before dc. (3) Acute systolic (congestive) heart failure Current Visit: No Status: Acute Assessment and plan: Continue home dose of Lasix , asa, statin and BB Moderate fluid restriction. Last echo on 09/07/15 showed LVEF of 30-35% and moderate systolic dysfunction of the left ventricle. appears to be euvolemic at this time. (4) CKD (chronic kidney disease) stage 3, GFR 30-59 ml/min Current Visit: No Status: Chronic Assessment and plan: stable - Time Spent With Patient 25 - 35 minutes - Subjective Interval history: seen at the bedside, reports mild pain on her left leg, says that her coumadin was stopped by her PCP. review of the charts show that it was stopped because she is a high fall risk, however on questioning the daughter she says she has actually never fallen but was one time very dizzy. she has been started on coumaidn with lovenox bridging. We will check INR daily, goal INR 2-3. - Constitutional Vitals: Temp Pulse Resp BP Pulse Ox 97.6 F 78 93 155/81 93 L 06/06/16 15:15 06/06/16 15:15 06/06/16 15:15 06/06/16 15:15 06/06/16 11:41 General appearance: Present: A&O X 3 Exam: - Head Head exam: Present: atraumatic, normocephalic - Eye Eye exam: Present: PERRL, conjuntiva pink, sclera anicteric Pupils: Present: PERRL - Neck Neck exam general surgery: Present: supple, trachea midline. Absent: lymphadenopathy - Respiratory Respiratory exam: Present: CTAB Absent: accessory muscle use, rhonchi, wheezes - Cardiovascular Cardiovascular exam: Present: RRR, +S1, +S2. Absent: diastolic murmur, gallop, rubs, systolic murmur - GI/Abdominal GI/Abdominal exam: Present: normal bowel sounds, soft, no peritoneal signs. Absent: distended, tenderness - Extremities Exam Extremities exam: Present: pedal edema, warm, radial pulses palpable and symetrical., non tender Absent: calf tenderness, cyanotic - Neurological Exam Neurological exam: Present: CN II-XII intact, oriented X3, no focal deficits. Absent: pronater drift, facial droop, speech deficit Internal Medicine: Result - Labs CBC & Chem 7: 06/06/16 07:25 06/05/16 04:11 Labs: Short CBC 06/06/16 Range/Units 07:25 WBC 8.1 (4.3-11.1) K/mcL Hgb 12.0 (11.5-15.4) g/dL Hct 38.3 (35.3-44.9) % Plt Count 193 (140-400) K/mcL Neutrophils # 4.1 (1.6-8.9) K/mcL - ABG Interpretation ABG results: PT/INR, D-dimer PT 14.0 Seconds (9.4-12.1) H 06/06/16 07:25 Consult Discharge Plan - Plan Referrals: Sho Christina CNP [Primary Care Provider] -
[2016-06-06] MEDS: Lacri-Lube 3.5 GM TUBE OP SCH (21:41)
[2016-06-07 04:13] LABS: Basophils # 0.1 K/mcL (0.0-0.2); Basophils % 0.9 %; Eosinophils # 0.7 K/mcL (0.0-0.6); Eosinophils % 9.8 %; Hematocrit 38.9 % (35.3-44.9); Hemoglobin 12.4 g/dL (11.5-15.4); Immature Granulocytes % 0.9 % (0-4); Lymphocytes # 2.4 K/mcL (0.6-4.6); Lymphocytes % 32.1 %; Mean Corpuscular HGB Conc 31.9 g/dL (31.6-35.5); Mean Corpuscular Hemoglobin 31.6 pg (28.0-33.3); Mean Corpuscular Volume 99.2 fL (83.0-100.0); Mean Platelet Volume 9.9 fL (9.4-12.4); Monocytes # 0.7 K/mcL (0.0-1.3); Neutrophils # 3.6 K/mcL (1.6-8.9); Platelet Count 215 K/mcL (140-400); Red Blood Count 3.92 M/mcL (3.82-4.97); Red Cell Distribution Width 15.3 % (11.5-14.5); Segmented Neutrophils % 47.3 %
[2016-06-07 04:17] LABS: INR 1.6; Prothrombin Time 17.3 Seconds (9.4-12.1)
[2016-06-07] MEDS: *HR* Enoxaparin 80 MG/0.8 ML SYRINGE SQ SCH ×2 (05:49→17:14)
[2016-06-07] MEDS: Metoprolol XL (24 HR) Succ 25 MG TAB.ER.24H PO SCH (08:17)
[2016-06-07] MEDS: Furosemide 20 MG TABLET PO SCH (08:17)
[2016-06-07] MEDS: Aspirin Enteric Coated 81 MG Tablet PO SCH (08:17)
[2016-06-07] MEDS: *HR* Warfarin 5 MG TABLET PO SCH (17:14)
--- NOTE | 2016-06-07 18:52 | Internal Med Progress Note ---
Date of Encounter: 06/07/16 Time of Encounter: 18:50 - Assessment and plan (1) Deep vein thrombosis (DVT) of left lower extremity Current Visit: Yes Status: Acute Assessment and plan: needs to be restarted on anticoagulation this is recurrent DVT, last one was many yrs ago and she does not remember if she had one or multiple/ will await therpeutic levels of INR, continue lovenox bridging until then does not c/o cheest pain or sob Qualifiers: Affected thrombotic vein of extremity: femoral Chronicity: acute Qualified Code(s): I82.412 - Acute embolism and thrombosis of left femoral vein (2) Physical deconditioning Current Visit: Yes Status: Acute Assessment and plan: fall risk and thus was stopped on coumadin, however daughter says she actually never had a fall but was dizzy at one time. ioana risk of having DVT and PE outweighs the risk of fall, thus it was discussed with the patient and the daughter about the importance on continuing AC at this time. They agreed with anticoagulation. should be assesed by PT/OT for the needs before dc. (3) Acute systolic (congestive) heart failure Current Visit: No Status: Acute Assessment and plan: Continue home dose of Lasix , asa, statin and BB Moderate fluid restriction. Last echo on 09/07/15 showed LVEF of 30-35% and moderate systolic dysfunction of the left ventricle. appears to be euvolemic at this time. (4) CKD (chronic kidney disease) stage 3, GFR 30-59 ml/min Current Visit: No Status: Chronic Assessment and plan: stable - Time Spent With Patient 25 - 35 minutes - Subjective Interval history: seen at the bedside, denies any complaints today.. review of the charts show that Lasix was stopped because she is a high fall risk , however on questioning the daughter she says she has actually never fallen but was one time very dizzy. she has been started on coumaidn with lovenox bridging. We will check INR daily, goal INR 2-3. - Constitutional Vitals: Temp Pulse Resp BP Pulse Ox 97.6 F 76 15 131/76 93 L 06/07/16 18:43 06/07/16 18:43 06/07/16 18:43 06/07/16 18:43 06/07/16 18:43 General appearance: Present: A&O X 3 Exam: - Head Head exam: Present: atraumatic, normocephalic - Eye Eye exam: Present: PERRL, conjuntiva pink, sclera anicteric Pupils: Present: PERRL - Neck Neck exam general surgery: Present: supple, trachea midline. Absent: lymphadenopathy - Respiratory Respiratory exam: Present: CTAB Absent: accessory muscle use, rhonchi, wheezes - Cardiovascular Cardiovascular exam: Present: RRR, +S1, +S2. Absent: diastolic murmur, gallop, rubs, systolic murmur - GI/Abdominal GI/Abdominal exam: Present: normal bowel sounds, soft, no peritoneal signs. Absent: distended, tenderness - Extremities Exam Extremities exam: Present: pedal edema, warm, radial pulses palpable and symetrical., non tender Absent: calf tenderness, cyanotic - Neurological Exam Neurological exam: Present: CN II-XII intact, oriented X3, no focal deficits. Absent: pronater drift, facial droop, speech deficit Internal Medicine: Result - Labs CBC & Chem 7: 06/07/16 04:00 06/05/16 04:11 Labs: Short CBC 06/07/16 Range/Units 04:00 WBC 7.5 (4.3-11.1) K/mcL Hgb 12.4 (11.5-15.4) g/dL Hct 38.9 (35.3-44.9) % Plt Count 215 (140-400) K/mcL Neutrophils # 3.6 (1.6-8.9) K/mcL - ABG Interpretation ABG results: PT/INR, D-dimer PT 17.3 Seconds (9.4-12.1) H 06/07/16 04:00 Consult Discharge Plan - Plan Referrals: Sho Christina CNP [Primary Care Provider] - 06/14/16 9:40 am
[2016-06-07] MEDS: Lacri-Lube 3.5 GM TUBE OP SCH (20:54)
[2016-06-07 23:14] LABS: Bilirubin,Urine Negative (Negative); Blood,Urine Small (Negative); Clarity,Urine Turbid (Clear); Color,Urine Yellow (Yellow); Glucose,Urine (UA) Normal (Normal); Ketones,Urine Negative (Negative); Leukocyte Esterase,Urine Large (Negative); Nitrite,Urine Positive (Negative); Protein,Urine 30 mg/dL (Neg-Trace); Specific Gravity,Urine 1.015 (1.010-1.025); Urobilinogen,Urine Normal (Normal)
[2016-06-07 23:16] LABS: Bacteria,Urine Moderate per hpf (None-Few); Hyaline Casts,Urine None Seen per lpf (None-Few); Squamous Epithelial Cell,Urine Many per lpf (None-Few); WBC,Urine TNTC per hpf (0-3)
[2016-06-08] MEDS ORDERED: Levofloxacin 750 MG/150 ML 750 MG/150 ML BAG IVPB SCH (05:00)
[2016-06-08] MEDS: *HR* Enoxaparin 80 MG/0.8 ML SYRINGE SQ SCH (05:50)
[2016-06-08 07:19] VITALS: BP 130/73
[2016-06-08 08:55] LABS: Basophils # 0.1 K/mcL (0.0-0.2); Basophils % 0.6 %; Eosinophils # 0.7 K/mcL (0.0-0.6); Eosinophils % 8.5 %; Hematocrit 40.7 % (35.3-44.9); Hemoglobin 12.8 g/dL (11.5-15.4); Immature Granulocytes % 1.3 % (0-4); Lymphocytes % 22.3 %; Mean Corpuscular HGB Conc 31.4 g/dL (31.6-35.5); Mean Corpuscular Hemoglobin 31.1 pg (28.0-33.3); Mean Corpuscular Volume 98.8 fL (83.0-100.0); Mean Platelet Volume 9.9 fL (9.4-12.4); Monocytes # 0.6 K/mcL (0.0-1.3); Monocytes % 7.1 %; Neutrophils # 5.3 K/mcL (1.6-8.9); Platelet Count 217 K/mcL (140-400); Red Blood Count 4.12 M/mcL (3.82-4.97); Red Cell Distribution Width 15.3 % (11.5-14.5); Segmented Neutrophils % 60.2 %
[2016-06-08 09:00] LABS: INR 2.3; Prothrombin Time 25.6 Seconds (9.4-12.1)
[2016-06-08 09:07] LABS: Calcium 9.3 mg/dL (8.6-10.8); Potassium 4.4 mEq/L (3.5-4.5)
[2016-06-08] MEDS: Aspirin Enteric Coated 81 MG Tablet PO SCH (09:35)
[2016-06-08] MEDS: Furosemide 20 MG TABLET PO SCH (09:35)
[2016-06-08] MEDS: Metoprolol XL (24 HR) Succ 25 MG TAB.ER.24H PO SCH (09:35)
--- NOTE | 2016-06-08 10:12 | Discharge Summary ---
<Solomon Corea - Last Filed: 06/08/16 10:10> Date of Encounter: 06/08/16 Time of Encounter: 10:10 - Discharge Diagnosis (1) UTI (urinary tract infection) Status: Acute (2) DVT (deep venous thrombosis) Status: Acute Qualifiers: DVT location: lower extremity Affected thrombotic vein of extremity: iliac Laterality: left Chronicity: acute Qualified Code(s): I82.422 - Acute embolism and thrombosis of left iliac vein (3) Physical deconditioning Status: Acute (4) CKD (chronic kidney disease) Status: Acute - Discharge Medications Prescriptions: Furosemide [Lasix] 20 mg PO DAILY 30 Days Nitrofurantoin (BID) [Macrobid] 100 mg PO BID #20 capsule Warfarin [Coumadin] 5 mg PO DAILY@1800 #30 tablet Home Medications: Aspirin Enteric Coated [Aspirin EC] 81 mg PO DAILY 09/06/15 [History] Ca/D3/Mag#11/Zinc/Instrument Repairer Helper/Leonardo/Bor [Caltrate 600+D Plus Tablet] 1 tab PO BID [History] Cholecalciferol (D-3) [Vitamin D] 2,000 unit PO DAILY 09/06/15 [History] Lansoprazole [Prevacid] 30 mg PO DAILY 09/06/15 [History] Levothyroxine [Synthroid] 75 mcg PO DAILY 09/06/15 [History] Multivit-Min/Iron/Folic/Lutein [Centrum Silver Women Tablet] 1 tab PO DAILY [History] Metoprolol XL (24 HR) Succ [Toprol Xl] 25 mg PO DAILY tab.er.24h 09/11/15 [Rx] Vit C/E/Zn/Coppr/Lutein/Zeaxan [Preservision Areds 2 Softgel] 1 cap PO BID 11/18 [History] Nystatin Cream [Mycostatin Cream] 1 appl TP BID PRN 01/28/16 [History] Meclizine [Antivert] 12.5 - 25 mg PO DAILY PRN 05/07/16 [History] Oxybutynin Chloride [Ditropan Xl] 10 mg PO HS 05/07/16 [History] L. Acidophilus/Pectin, [place] [Acidophilus Probiotic Capsule] 1 each PO DAILY [History] Mineral Oil/Petrolatum,White [Refresh P.m. Ointment] 1 appl OP HS 06/04/16 [ History] Furosemide [Lasix] 20 mg PO DAILY 30 Days 06/08/16 [Rx] Nitrofurantoin (BID) [Macrobid] 100 mg PO BID #20 capsule 06/08/16 [Rx] Warfarin [Coumadin] 5 mg PO DAILY@1800 #30 tablet 06/08/16 [Rx] Allergies/Adverse Reactions: Allergies azithromycin Allergy (Verified 11/19/15 11:15) Rash ketoconazole Allergy (Verified 11/19/15 11:15) Rash methylprednisolone Allergy (Verified 11/19/15 11:15) Blister Penicillins Allergy (Verified 11/19/15 11:15) Rash tramadol Adverse Reaction (Verified 11/19/15 11:15) Nausea Date of admission: 06/04/16 18:26 Primary care physician: Sho Christina CNP Consults: 06/04/16 19:49 Consult to Occupational Therapy [CONS] Routine Comment: Evaluate, develop and implement POC Consult to Physical Therapy [CONS] Routine Comment: Evaluate, develop and implement POC 06/05/16 05:16 Consult to Combine Operator [CONS] Routine Reason for SW Consult: Pt from rehab center, does not want to return to the same one. Discharging clinician: Solomon Corea Anticipated date of discharge: 06/08/16 - Patient Status Disposition: Home Health Service Condition: Good Functional capacity at discharge: uses cane/walker Overall status at discharge: patient is progressing back to baseline - Ambulatory Orders Ambulatory Orders: Basic Metabolic Panel [CHEM] Time Frame: 2 Days, Location: Home health/ Any lab Magnesium [CHEM] Time Frame: 2 Days, Location: Home healht/ Any lab Prothrombin Time INR [COAG] Time Frame: 2 Days, Location: [facility] lab - Discharge Instructions Instructions: Nitrofurantoin (By mouth), Furosemide (By mouth), Warfarin (By mouth), Deep Venous Thrombosis (DC) Follow Up With: Sho Christina CNP [Primary Care Provider] - 06/14/16 9:40 am Additional Instructions: Follow with primary care physician within the next 7 days. Continue Coumadin and nitrofurantoin. We will try to contact the patient within the next 24-48 hours with the final urine culture report to decide on a different antibiotic therapy. - Diet and Activity Activity: as per physical therapy Diet: advance to your usual diet Hospital course: Ms. Mosher is a 81 year old female who recently had an admission to [facility] for Cdiff and was then later discharged from rehab just prior to readmission here at [facility]. She was admitted for a DVT of the left distal iliac, femoral and poplitial veins. She was also diagnosed with a UTI. She has recurrent UTIS. Some cultures have grown out VRE but most recent culture have grown Ecoli. She has improved ( confusion resolved ) on Levofloxacin. I discussed this in depth with both the patient and daughter. WE will discharge her with macrobid and follow up with culture results ( available in 24-48 hours). Discussed option of keeping patient here until culture results have returned but they wish to be discharged today. She also has a history of Diastolic CHF and had some increased dyspnea and was started on PO lasix. She dose have mild crackles in the base of the lungs but she is on room air and states she is at her baseline. We will discharge the patient today. We will continue her on lasix 20 mg daily. We will continue her coumadin at 5mg per day. we will order an INR in 2 days. 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 the 1st happened after child , the second after surgery and now the third after hospitalization for Cdiff. We will continue her coumadin and she may need to have this indefinately. May consider Hematology consult to see if there are any genetic hypercoagulable conditions that may affect other family members. Should also have routine cancer screening. We will also check Potassium, magnesium and renal function in 2 days as we are continuing a low dose of lasix. Today the patient is stable. She is working with physical therapy. She is eating and having normal bowel and bladder function. We will discharge her with follow up to PCP in one week. Understanding and agreement of the discharge plan was voiced by the patient and her daughter who is her POA. Changes to home medication list include the addition of the following: Coumadin 5mg PO per day Lasix 20 mg PO Q day Macrobid 100 mg PO BID for 10 days. We will follow up with culture results and phone in new prescription if needed. Her pharmacy is [facility]. - Time Spent with Patient Total time spent providing and/or coordinating discharge services: Less than 30 minutes - Constitutional Vitals: Temp Pulse Resp BP Pulse Ox 97.8 F 81 14 130/73 91 L 06/08/16 07:18 06/08/16 07:18 06/08/16 07:18 06/08/16 07:18 06/08/16 07:18 General appearance: Present: A&O X 3, pleasant, no acute distress - Head Head exam: Present: atraumatic, normal inspection, normocephalic - Eye Eye exam: Present: PERRL, conjuntiva pink, sclera anicteric Pupils: Present: PERRL - ENT ENT exam: Present: mucous membranes moist Additional comments: poor dentition - Neck Neck exam general surgery: Present: supple, trachea midline. Absent: lymphadenopathy - Respiratory Respiratory exam: Absent: accessory muscle use, rales, rhonchi, wheezes Additional comments: mild bilateral crackles in the bases of the lungs bilaterally - Cardiovascular Cardiovascular exam: Present: RRR, +S1, +S2. Absent: diastolic murmur, gallop, rubs, systolic murmur - GI/Abdominal GI/Abdominal exam: Present: normal bowel sounds, soft, no peritoneal signs. Absent: distended, tenderness Additional comments: obese - Extremities Exam Extremities exam: Present: pedal edema (mild left foot), warm, radial pulses palpable and symetrical. Absent: calf tenderness, cyanotic - Skin Skin exam: Present: dry, intact <Renny Trevizo - Last Filed: 06/08/16 13:44> Date of Encounter: 06/08/16 Date of admission: 06/04/16 18:26 Primary care physician: Sho Christina CNP Consults: 06/04/16 19:49 Consult to Occupational Therapy [CONS] Routine Comment: Evaluate, develop and implement POC Consult to Physical Therapy [CONS] Routine Comment: Evaluate, develop and implement POC 06/05/16 05:16 Consult to Combine Operator [CONS] Routine Reason for SW Consult: Pt from rehab center, does not want to return to the same one. Hospital course: Ms. Mosher is a 81 year old female - Time Spent with Patient Total time spent providing and/or coordinating discharge services: - Constitutional Vitals: Temp Pulse Resp BP Pulse Ox 97.8 F 81 14 130/73 91 L 06/08/16 07:18 06/08/16 07:18 06/08/16 07:18 06/08/16 07:18 06/08/16 07:18 - Attending Attestation Follow with primary care physician within the next 7 days. Continue Coumadin and nitrofurantoin. We will try to contact the patient within the next 24-48 hours with the final urine culture report to decide on a different antibiotic therapy. I examined this patient and my medical decision-making was reviewed with the NIGHT MANAGER/PA/Advanced Practice Nurse/Resident Physician. I agree with the documented findings, disposition and treatment plan as described except to the extent set forth below.
--- NOTE | 2016-06-08 10:54 | Physician Discharge Referral ---
<Solomon Corea - Last Filed: 06/08/16 10:53> Home Health/Hosp Referral Info Transfer to: Home Health Provider in Charge Post Discharge: PCP - Diagnosis (1) UTI (urinary tract infection) Status: Acute (2) DVT (deep venous thrombosis) Status: Acute (3) Physical deconditioning Status: Acute (4) CKD (chronic kidney disease) Status: Acute - Respiratory Orders Smoking Cessation: Smoking cessation has been advised. For more information, call the [place] Tobacco Quit Line at 5-346-QBBK-NOW. - Diet/Nutrition Diet/Nutrition Orders: Cardiac - Activity Activity Orders: Walker (and as per PT/OT) - Services Needed Following services are medically necessary services: Nursing, Home Health Aide, Physical Therapy, Occupational Therapy - Transfer Medications Prescriptions: Furosemide [Lasix] 20 mg PO DAILY 30 Days Nitrofurantoin (BID) [Macrobid] 100 mg PO BID #20 capsule Warfarin [Coumadin] 5 mg PO DAILY@1800 #30 tablet Home Medications: Aspirin Enteric Coated [Aspirin EC] 81 mg PO DAILY 09/06/15 [History] Ca/D3/Mag#11/Zinc/Washery Engineer/Leonardo/Bor [Caltrate 600+D Plus Tablet] 1 tab PO BID [History] Cholecalciferol (D-3) [Vitamin D] 2,000 unit PO DAILY 09/06/15 [History] Lansoprazole [Prevacid] 30 mg PO DAILY 09/06/15 [History] Levothyroxine [Synthroid] 75 mcg PO DAILY 09/06/15 [History] Multivit-Min/Iron/Folic/Lutein [Centrum Silver Women Tablet] 1 tab PO DAILY [History] Metoprolol XL (24 HR) Succ [Toprol Xl] 25 mg PO DAILY tab.er.24h 09/11/15 [Rx] Vit C/E/Zn/Coppr/Lutein/Zeaxan [Preservision Areds 2 Softgel] 1 cap PO BID 11/18 [History] Nystatin Cream [Mycostatin Cream] 1 appl TP BID PRN 01/28/16 [History] Meclizine [Antivert] 12.5 - 25 mg PO DAILY PRN 05/07/16 [History] Oxybutynin Chloride [Ditropan Xl] 10 mg PO HS 05/07/16 [History] L. Acidophilus/Pectin, [place] [Acidophilus Probiotic Capsule] 1 each PO DAILY [History] Mineral Oil/Petrolatum,White [Refresh P.m. Ointment] 1 appl OP HS 06/04/16 [ History] Furosemide [Lasix] 20 mg PO DAILY 30 Days 06/08/16 [Rx] Nitrofurantoin (BID) [Macrobid] 100 mg PO BID #20 capsule 06/08/16 [Rx] Warfarin [Coumadin] 5 mg PO DAILY@1800 #30 tablet 06/08/16 [Rx] Allergies/Adverse Reactions: Allergies azithromycin Allergy (Verified 11/19/15 11:15) Rash ketoconazole Allergy (Verified 11/19/15 11:15) Rash methylprednisolone Allergy (Verified 11/19/15 11:15) Blister Penicillins Allergy (Verified 11/19/15 11:15) Rash tramadol Adverse Reaction (Verified 11/19/15 11:15) Nausea Certification: Further, I certify that my clinical findings support that this patient is homebound (i.e. absences from home require considerable and taxing effort and are for medical reasons or adventist services or infrequently or short duration when for other reasons) because: Homebound Reason: Patient requires assistance of a person or device to safely leave home, Leaving home requires considerable and taxing effort due to condition Attestation: My signature below is to certify that this patient is under my care and that I, or nurse practitioner, or a physician's assistant toddler teacher working with me, has a face-to -face encounter with this patient. <Renny Trevizo - Last Filed: 06/08/16 13:46> - Respiratory Orders Smoking Cessation: Smoking cessation has been advised. For more information, call the [place] Tobacco Quit Line at 9-933-LFOI-NOW. Other Treatments: Follow with primary care physician within the next 7 days. Continue Coumadin and nitrofurantoin. We will try to contact the patient within the next 24-48 hours with the final urine culture report to decide on a different antibiotic therapy. Certification: Further, I certify that my clinical findings support that this patient is homebound (i.e. absences from home require considerable and taxing effort and are for medical reasons or adventist services or infrequently or short duration when for other reasons) because: Attestation: My signature below is to certify that this patient is under my care and that I, or nurse practitioner, or a physician's assistant toddler teacher working with me, has a face-to -face encounter with this patient. I examined this patient and my medical decision-making was reviewed with the SUPERVISOR BELT AND LINK ASSEMBLY/PA/Advanced Practice Nurse/Resident Physician. I agree with the documented findings, disposition and treatment plan as described except to the extent set forth below.
== END 2016-06-08 12:20 | disposition home health service (06) ==
LOC: EMEROO 16:14 → 3BNU 16:14 → SUATTDRO 18:26 → 3BNU 19:20
PROVIDERS: ADMIT Internal Medicine; ATTEND Internal Medicine

== ENCOUNTER 2016-09-08 14:34 | Inpatient (IN) ==
[2016-09-08 15:54] LABS: Basophils % 0.3 %; Eosinophils # 0.1 K/mcL (0.0-0.6); Eosinophils % 0.8 %; Hematocrit 38.4 % (35.3-44.9); Hemoglobin 12.3 g/dL (11.5-15.4); Immature Granulocytes % 0.6 % (0-4); Lymphocytes # 1.3 K/mcL (0.6-4.6); Lymphocytes % 8.5 %; Mean Corpuscular Hemoglobin 31.2 pg (28.0-33.3); Mean Corpuscular Volume 97.5 fL (83.0-100.0); Mean Platelet Volume 9.7 fL (9.4-12.4); Monocytes % 6.4 %; Platelet Count 224 K/mcL (140-400); Red Blood Count 3.94 M/mcL (3.82-4.97); Red Cell Distribution Width 15.1 % (11.5-14.5); Segmented Neutrophils % 83.4 %
--- NOTE | 2016-09-08 15:57 | Emergency Department Note ---
Disposition Clinical Impression: Hip fracture, right Qualifiers: Encounter type: initial encounter Fracture type: closed Qualified Code(s): S72.001A - Fracture of unspecified part of neck of right femur, initial encounter for closed fracture Hand fracture, right Qualifiers: Encounter type: initial encounter Fracture type: closed Qualified Code(s): S62.91XA - Unspecified fracture of right wrist and hand, initial encounter for closed fracture Disposition: Admitted As Inpatient Referrals: Jose Xie DO [Primary Care Provider] - Forms: ED Satisfaction Letter Fall HPI - General Chief Complaint: ED Extremity Injury, Lower Stated Complaint: fall, left hip injury Time Seen by Provider: 09/08/16 14:35 Source: patient, family Mode of arrival: EMS Limitations: no limitations Nursing Notes Reviewed: Yes Vital Signs Reviewed: Yes - History of Present Illness Pt Subjective Complaint: fall Onset (ago): Just PRINT TRAFFIC MANAGER Fall From: other (getting out of a vehicle) Fall Witnessed: yes Place Fall Occurred: street Loss of Consciousness: none Prolonged Down Time?: no Symptoms Prior to Fall: none Context: tripped/slipped Location of injury - extremities: Right: hand, hip Severity: moderate Quality: dull Associated symptoms (after fall): Reports: denies - Related Data Home Medications Medication Instructions Recorded Confirmed Aspirin Enteric Coated [Aspirin EC] 81 mg PO DAILY 09/06/15 06/04/16 Ca/D3/Mag#11/Zinc/Warehouse Shipping Supervisor/Leonardo/Bor 1 tab PO BID 09/06/15 06/04/16 [Caltrate 600+D Plus Tablet] Cholecalciferol (D-3) [Vitamin D] 2,000 unit PO DAILY 09/06/15 06/04/16 Lansoprazole [Prevacid] 30 mg PO DAILY 09/06/15 06/04/16 Levothyroxine [Synthroid] 75 mcg PO DAILY 09/06/15 06/04/16 Multivit-Min/Iron/Folic/Lutein 1 tab PO DAILY 09/06/15 06/04/16 [Centrum Silver Women Tablet] Vit C/E/Zn/Coppr/Lutein/Zeaxan 1 cap PO BID 11/19/15 06/04/16 [Preservision Areds 2 Softgel] Nystatin Cream [Mycostatin Cream] 1 appl TP BID PRN 01/28/16 06/04/16 Meclizine [Antivert] 12.5 - 25 mg PO DAILY PRN 05/07/16 06/04/16 Oxybutynin Chloride [Ditropan Xl] 10 mg PO HS 05/07/16 06/04/16 L. Acidophilus/Pectin, [place] 1 each PO DAILY 06/04/16 06/04/16 [Acidophilus Probiotic Capsule] Mineral Oil/Petrolatum,White 1 appl OP HS 06/04/16 06/04/16 [Refresh P.m. Ointment] Previous Rx's Medication Instructions Recorded Metoprolol XL (24 HR) Succ [Toprol 25 mg PO DAILY tab.er.24h 09/11/15 Xl] Furosemide [Lasix] 20 mg PO DAILY 30 Days 06/08/16 Nitrofurantoin (BID) [Macrobid] 100 mg PO BID #20 capsule 06/08/16 Warfarin [Coumadin] 5 mg PO DAILY@1800 #30 tablet 06/08/16 Allergies Allergy/AdvReac Type Severity Reaction Status Date / Time azithromycin Allergy Rash Verified 11/19/15 11:15 ketoconazole Allergy Rash Verified 11/19/15 11:15 methylprednisolone Allergy Blister Verified 11/19/15 11:15 Penicillins Allergy Rash Verified 11/19/15 11:15 tramadol AdvReac Nausea Verified 11/19/15 11:15 All systems ED: reviewed and negative except as stated. Constitutional: Denies: fever, chills, weakness Cardiovascular: Denies: chest pain, palpitations Respiratory: Denies: cough Fall PMH - Past Medical History Medical history: Reports: aortic aneurysm, cancer, CHF, CVA, DVT, GERD, thyroid disease Surgical history: Reports: cholecystectomy, colectomy (partial), hysterectomy, other Psychiatric history: Reports: no psych history MEDIA RELATIONS MANAGER history: Reports: no MEDIA RELATIONS MANAGER history - Social History Smoking Status: Former smoker Alcohol use: Reports: none Drug use: Reports: none Physical Exam - General Limitations: no limitations General appearance: alert, in no apparent distress - Head Head exam: atraumatic, normocephalic, normal inspection - Eye Eye exam: Present: normal appearance, PERRL, EOMI - ENT ENT exam: normal exam, normal oropharynx, mucous membranes moist - Neck Neck exam: Present: normal inspection, full ROM, trachea midline - Chest Chest inspection: Present: normal inspection, symmetric chest wall rise - Respiratory Respiratory exam: Present: normal lung sounds bilaterally - Cardiovascular Cardiovascular exam: Present: regular rate, normal rhythm, normal heart sounds - Abdominal Exam Abdominal exam: Present: soft, Non-Tender. Absent: tenderness, distention, guarding, rebound, rigidity - Expanded Upper Extremity Exam Hand exam: Present: other (pain right 5th metacarpal swelling) - Expanded Lower Extremity Exam Hip/Pelvis exam: Present: tenderness (right), other (unable to move right hip) - Neurological Exam Neurological exam: Present: alert, oriented X3 - Psychiatric Psychiatric exam: Present: normal affect, normal mood - Skin Skin exam: Present: warm, dry, intact, normal color Course - Consultations Consultation #1: dr. jara Time: 15:58 Vital Signs Temperature 98.9 F 09/08/16 14:35 Pulse Rate 86 09/08/16 14:35 Respiratory Rate 18 09/08/16 14:35 Blood Pressure 144/78 09/08/16 14:35 O2 Sat by Pulse Oximetry 94 09/08/16 14:35 Temperature 98.9 F 09/08/16 14:35 Pulse Rate 90 09/08/16 14:43 Respiratory Rate 18 09/08/16 14:35 Blood Pressure 144/78 09/08/16 14:35 O2 Sat by Pulse Oximetry 94 09/08/16 14:35 Oxygen Delivery Oxygen Delivery Nasal Cannula Fall - Differential Diagnosis Likely: syncope, traumatic injury, arrhythmia - Medical Records Medical records reviewed: Yes I reviewed the patient's medical records. - Lab Data Lab results reviewed: Yes I reviewed the patient's lab results. Result diagrams: 09/08/16 15:43 09/08/16 15:43 Lab Results 09/08/16 09/08/16 09/08/16 Range/Units 15:43 15:43 15:43 WBC 15.6 H (4.3-11.1) K/mcL RBC 3.94 (3.82-4.97) M/mcL Hgb 12.3 (11.5-15.4) g/dL Hct 38.4 (35.3-44.9) % MCV 97.5 (83.0-100.0) fL MCH 31.2 (28.0-33.3) pg MCHC 32.0 (31.6-35.5) g/dL RDW 15.1 H (11.5-14.5) % Plt Count 224 (140-400) K/mcL MPV 9.7 (9.4-12.4) fL Immature Gran % 0.6 (0-4) % Seg Neutrophils % 83.4 % Lymphocytes % 8.5 % Monocytes % 6.4 % Eosinophils % 0.8 % Basophils % 0.3 % Neutrophils # 13.0 H (1.6-8.9) K/mcL Lymphocytes # 1.3 (0.6-4.6) K/mcL Monocytes # 1.0 (0.0-1.3) K/mcL Eosinophils # 0.1 (0.0-0.6) K/mcL Basophils # 0.0 (0.0-0.2) K/mcL PT 24.9 H (9.4-12.1) Seconds INR 2.3 APTT 26.7 (26.0-36.0) Seconds Sodium 139 (136-145) mEq/L Potassium 4.0 (3.5-4.5) mEq/L Chloride 104 (98-109) mEq/L Carbon Dioxide 21 (19-29) mEq/L BUN 21 H (7-20) mg/dL Creatinine 1.29 H (0.57-1.11) mg/dL Est GFR ( Amer) 48 L (> 60) Est GFR (Non-Af Amer) 39 L (> 60) BUN/Creatinine Ratio 16 (6-26) Glucose 160 H (70-99) mg/dL Calculated Osmolality 294 (280-300) Calcium 9.0 (8.6-10.8) mg/dL - Radiology Data Radiology results reviewed: Yes I reviewed the patient's radiology results. - EKG Data EKG attestation: Yes I reviewed and interpreted this EKG. EKG shows normal: sinus rhythm Rhythm: NSR Filer/QRS: normal Q waves: v1, v2, v3 Interpretation: no acute changes
[2016-09-08 15:59] LABS: INR 2.3; Prothrombin Time 24.9 Seconds (9.4-12.1)
[2016-09-08 16:02] LABS: Activated Partial Thrombo Time 26.7 Seconds (26.0-36.0)
[2016-09-08] MEDS ORDERED: Ondansetron 4 MG/2 ML VIAL IVP ONE (16:19)
[2016-09-08] MEDS ORDERED: *HR* Morphine 2 MG/ML SYRINGE IVP ONE (16:19)
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
[2016-09-08] MEDS ORDERED: Naloxone 0.4 MG/ML INJ IVP PRN (19:43)
[2016-09-08] MEDS ORDERED: Ondansetron 4 MG/2 ML VIAL IVP PRN (19:43)
[2016-09-08] MEDS ORDERED: Acetaminophen 325 MG TABLET PO PRN (19:43)
[2016-09-08] MEDS ORDERED: Furosemide 40 MG/4 ML VIAL IVP ONE (19:47)
[2016-09-08] MEDS: *HR* Morphine 2 MG/ML SYRINGE IVP PRN (21:55)
[2016-09-08] MEDS: Famotidine 20 MG TABLET PO SCH (21:59)
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
[2016-09-08] MEDS: Furosemide 20 MG TABLET PO SCH (22:35)
[2016-09-08] MEDS ORDERED: *HR* Heparin 5,000 UNIT/ML VIAL IVP ONE (23:01)
[2016-09-08] MEDS ORDERED: *HR* Heparin 5,000 UNIT/ML VIAL IVP PRN (23:01)
--- NOTE | 2016-09-08 23:03 | Event Note ---
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 Patient evaluated with COMIC ILLUSTRATOR, agree with COMIC ILLUSTRATOR notes history, assessment and plan; Patient is alert and oriented to person and place; chest- S1, S2 heard; bibasal crackles+ Right hand and forearm in soft brace; right hip- abducted and external rotation ; induration and tenderness over right lateral hip; Labs reviewed; elevated WBC and serum creatinine; EKG shows NSR, anterolateral Q waves, probably old infarct; Echocardiogram from 08/2015 shows severe LV dysfunction with EF 30-35%, moderate LV diastolic dysfunction, mild pulmonary HTN. Chest XRay today shows pulmonary edema; Right hip and right 5th metacarpal fractures s/p mechanical fall- Leukocytosis likely due to stress from fall and fractures. Orthopedic evaluation appreciated ; plan for surgical repair with nail fixation on 09/10/16. Cardiology clearance given significant combined CHF and poor functional status; at least moderate perioperative risk. Will repeat Echocardiogram. Pain control and supportive care. Combined CHF, acute on chronic- will give a dose of IV Lasix and monitor urine output; Echocardiogram; continue oral Lasix from tomorrow; Recurrent DVT, on intermediate project manager anticoagulation- Hold Coumadin for now in anticipation of surgery. Start IV Heparin drip as patient will also require anticoagulation after hip surgery. INR 2.3; continue to monitor.
[2016-09-09] MEDS: Heparin 25,000 UNIT/500 ML D5W 25,000 UNIT/500 ML MLS IVC SCH (01:45)
[2016-09-09 03:15] LABS: Activated Partial Thrombo Time 30.2 Seconds (26.0-36.0); Prothrombin Time 21.8 Seconds (9.4-12.1)
[2016-09-09 03:16] LABS: Hematocrit 37.3 % (35.3-44.9); Hemoglobin 11.8 g/dL (11.5-15.4); Immature Platelets 4.1 % (1.1-6.1); Mean Corpuscular HGB Conc 31.6 g/dL (31.6-35.5); Mean Corpuscular Hemoglobin 31.5 pg (28.0-33.3); Mean Corpuscular Volume 99.5 fL (83.0-100.0); Mean Platelet Volume 10.5 fL (9.4-12.4); Red Blood Count 3.75 M/mcL (3.82-4.97); Red Cell Distribution Width 15.4 % (11.5-14.5)
[2016-09-09 05:24] LABS: INR 2.2; Prothrombin Time 24.4 Seconds (9.4-12.1)
[2016-09-09 05:50] LABS: Calcium 9.1 mg/dL (8.6-10.8); Potassium 4.5 mEq/L (3.5-4.5)
[2016-09-09 06:25] LABS: Heparin anti-factor XA UFH 0.97 IU/mL (0.30-0.70)
[2016-09-09 06:52] LABS: Basophils % 0.4 %; Eosinophils # 0.2 K/mcL (0.0-0.6); Eosinophils % 1.7 %; Hematocrit 36.7 % (35.3-44.9); Hemoglobin 11.3 g/dL (11.5-15.4); Immature Granulocytes % 0.6 % (0-4); Lymphocytes # 2.1 K/mcL (0.6-4.6); Lymphocytes % 20.6 %; Mean Corpuscular HGB Conc 30.8 g/dL (31.6-35.5); Mean Corpuscular Hemoglobin 30.3 pg (28.0-33.3); Mean Corpuscular Volume 98.4 fL (83.0-100.0); Mean Platelet Volume 10.2 fL (9.4-12.4); Monocytes # 1.2 K/mcL (0.0-1.3); Monocytes % 11.6 %; Neutrophils # 6.7 K/mcL (1.6-8.9); Platelet Count 229 K/mcL (140-400); Red Blood Count 3.73 M/mcL (3.82-4.97); Red Cell Distribution Width 15.5 % (11.5-14.5); Segmented Neutrophils % 65.1 %
[2016-09-09] MEDS: *HR* Morphine 2 MG/ML SYRINGE IVP PRN ×2 (08:03→22:19)
[2016-09-09] MEDS ORDERED: Perflutren Lipid Microsphere 1.3 ML in 0.9 % Sodium Chloride 8.7 ML IVP ONE (08:39)
[2016-09-09] MEDS ORDERED: Nitrofurantoin (BID) 100 MG CAPSULE PO SCH (09:00)
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
[2016-09-09] MEDS: *HR* HYDROcodone/Acet 5/325 mg TABLET PO PRN ×2 (10:04→17:20)
[2016-09-09] MEDS: Famotidine 20 MG TABLET PO SCH (10:04)
[2016-09-09] MEDS: Aspirin Enteric Coated 81 MG Tablet PO SCH (10:05)
[2016-09-09] MEDS: Metoprolol XL (24 HR) Succ 25 MG TAB.ER.24H PO SCH (10:05)
[2016-09-09] MEDS: Furosemide 20 MG TABLET PO SCH (10:05)
--- NOTE | 2016-09-09 12:58 | ECHO - Doppler Report ---
Echo with Imaging Enhancement Agent Name: Janeen Mosher Date of Study: 09/09/2016 Date: 1935 Ht: 66.0 in Medical Record#: [id number] Age: 81 Wt: 193.0 lb Gender: Female BSA: 1.97 Order #: [id number] Location: [facility] Room #: [id number] Reading Physician: Vanessa Woods DO Business Affairs Manager: Norbert Hernandez RDCS Ordering Physician: Kelli Martinez CNP Primary Physician: Nakul Xie DO Indications: Congestive heart failure, Preoperative exam Impressions: LVEF 60%. Normal left ventricular size and systolic function. Atypical septal motion. Definity was given. There is evidence of mild diastolic dysfunction of the left ventricle. Normal right ventricular size and function. No significant valvular dysfunction. No pulmonary hypertension. When compared to echo, 09/07/2015, LV systolic function has improved. Left Ventricular Wall Motion: Rest Echo Findings All wall segments showed normal motion. Findings: Study Quality * Technically sub-optimal due to clinical status. ECG Findings * Normal sinus rhythm with BBB. Left Ventricle * Atypical septal motion. * Mild left ventricular diastolic dysfunction. * LVEF 60%. * Definity echo contrast was used. Aorta * Normally sized aortic root. Aortic Valve * No aortic regurgitation. * Trileaflet aortic valve. * Mildly calcified aortic valve leaflets. * No aortic stenosis. Mitral Valve * Normal mitral valve structure. * No mitral stenosis. * Mild mitral annular calcification * Trace mitral regurgitation. Tricuspid Valve * Tricuspid valve not well visualized. * No tricuspid regurgitation. * Estimated RA pressure is 3 mmHg. * Estimated RVSP is 17 mmHg. * No pulmonary hypertension. Pulmonic Valve * Pulmonic valve is not well visualized. * No pulmonic stenosis. * Trace pulmonic regurgitation. Pulmonary Artery * Pulmonary artery not well visualized. Right Ventricle * Normal right ventricular structure and function. Not well visualized in subcostal view. Left Atrium * Normal left atrial size. Right Atrium * Normal right atrial size. IVC * Normal IVC dimensions and inspiratory collapse. Interatrial Septum * Interatrial septum not well evaluated. Pericardium * There is no pericardial effusion present. History Congestive Heart Failure 09/07/15 a Previous Echo was performed. Contrast: Definity 1.3 ml in 8.7 ml of saline 2 ml. Measurements: BP: 138/ 75 2D Normal Values RVIDd: 2.98 cm <2.7 cm IVSd: 1.01 cm 0.6 - 1.0 cm LVIDd: 4.10 cm 3.7 - 5.6 cm LVPWd: 1.06 cm 0.6 - 1.1 cm LVIDs: 3.23 cm 1.5 - 3.6 cm AO: 2.30 cm < 4.0 cm LA: 3.00 cm 2.0 - 4.0cm %FS: 21.20 cm >25 % LA volume: 57 Mitral Valve Peak E:.72 m/sec Peak A:1.03 m/sec E/A Ratio:0.7 Peak E' Lat Herber:8.05 cm/s Peak E' Med Herber:5.98 cm/s E/E' Lat Ratio:9 E/E' Med Ratio:12.1 Tricuspid Valve TV Regurg Peak Grad: 14.00mmHg TV Regurg Peak Herber: 1.88m/sec Updated by Vanessa Woods on 09/09/2016 12:52:41 PM electronically signed on 09/09/2016 12:54:00 PM with status of Final Wall Motion Hui: 1=Normal, 2=Hypokinesis, 3=Akinesis, 4=Dyskinesis, 5=Aneurysmal, 6=Hyperkinetic, X=Not Visualized (Blank)=Missing
--- NOTE | 2016-09-09 13:53 | Electrocardiograph Report ---
[address] [place] [address] Test Date: 2016-09-08 Pat Name: Jaenen Mosher Department: 102 Room: [facility] Gender: F Desk Attendant: Ronda : 1935 Requested By: Macario Ramos Order Number: [id number] Reading MD: Manoj Feliciano MD Measurements Intervals [place] Rate: 84 P: 65 WI: 187 QRS: -5 QRSD: 106 T: 67 QT: 408 QTc: 449 Interpretive Statements SINUS RHYTHM ANTEROSEPTAL MYOCARDIAL INFARCTION, OF INDETERMINATE AGE Electronically Signed On 09-09-2016 13:51:42 EDT by Manoj Feliciano MD
[2016-09-09] MEDS ORDERED: *HR* Heparin 5,000 UNIT/ML VIAL ONE (14:08)
--- NOTE | 2016-09-09 14:09 | Internal Med Progress Note ---
Date of Encounter: 09/09/16 Time of Encounter: 14:08 - Assessment and plan (1) Hypothyroid Current Visit: Yes Status: Chronic Assessment and plan: Continue home meds Qualifiers: Hypothyroidism type: unspecified Qualified Code(s): E03.9 - Hypothyroidism , unspecified (2) CKD (chronic kidney disease) stage 3, GFR 30-59 ml/min Current Visit: Yes Status: Chronic Assessment and plan: Avoid nephrotoxins Cr at baseline (3) Atrial fibrillation Current Visit: Yes Status: Chronic Assessment and plan: rate controlled, continue BB, heparin Qualifiers: Atrial fibrillation type: paroxysmal Qualified Code(s): I48.0 - Paroxysmal atrial fibrillation (4) DVT (deep venous thrombosis) Current Visit: Yes Status: Chronic Assessment and plan: Heparin drip for now Hold coumadin for surgery INR 2 Monitor INR, CBC Qualifiers: Affected thrombotic vein of extremity: unspecified vein of extremity Laterality: unspecified laterality Chronicity: unspecified Qualified Code(s) : I82.409 - Acute embolism and thrombosis of unspecified deep veins of unspecified lower extremity (5) CHF (congestive heart failure) Current Visit: Yes Status: Chronic Assessment and plan: Echo 09/09/16 today shows EF 60%. Normal LV size and systolic function. Atypical septal motion. Mild diastolic dysfunction of LV. Continue current meds, including lasix Qualifiers: Congestive heart failure type: systolic Congestive heart failure chronicity : chronic Qualified Code(s): I50.22 - Chronic systolic (congestive) heart failure (6) UTI (urinary tract infection) Current Visit: Yes Status: Acute Assessment and plan: Patient was on medication for UTI-Nitrofurantoin Will d/c for now and start on levoflox Monitor renal function Qualifiers: Urinary tract infection type: acute cystitis Hematuria presence: without hematuria Qualified Code(s): N30.00 - Acute cystitis without hematuria (7) Hip fracture, right Current Visit: Yes Status: Acute Assessment and plan: For surgery a.m Qualifiers: Encounter type: initial encounter Fracture type: closed Qualified Code(s) : S72.001A - Fracture of unspecified part of neck of right femur, initial encounter for closed fracture (8) Hand fracture, right Current Visit: Yes Status: Acute Assessment and plan: For surgery am Qualifiers: Encounter type: initial encounter Fracture type: closed Qualified Code(s) : S62.91XA - Unspecified fracture of right wrist and hand, initial encounter for closed fracture - Subjective Interval history: 81 F Seen and evaluated at bedside Being managed for R hip and R hand fracture Has significant cardiac hx-CHFrEF EF 30-35%, Aortic aneurysm, Recurrent DVTs Leukocytosis has improved patient denies new complains Surgery has been planned for tomorrow - Constitutional Vitals: Temp Pulse Resp BP Pulse Ox 98.8 F 76 16 149/82 95 09/09/16 11:13 09/09/16 11:13 09/09/16 11:13 09/09/16 11:13 09/09/16 11:13 General appearance: Present: A&O X 3, pleasant, no acute distress - Head Head exam: Present: atraumatic, normocephalic - Eye Eye exam: Present: PERRL, conjuntiva pink, sclera anicteric Pupils: Present: PERRL - Neck Neck exam general surgery: Present: supple, trachea midline. Absent: lymphadenopathy - Respiratory Respiratory exam: Present: CTAB. Absent: accessory muscle use, rales, rhonchi, wheezes - Cardiovascular Cardiovascular exam: Present: RRR, +S1, +S2. Absent: diastolic murmur, gallop, rubs, systolic murmur - GI/Abdominal GI/Abdominal exam: Present: normal bowel sounds, soft, no peritoneal signs. Absent: distended, tenderness - Extremities Exam Extremities exam: Present: warm, radial pulses palpable and symetrical. Absent : calf tenderness, cyanotic, pedal edema - Neurological Exam Neurological exam: Present: alert, CN II-XII intact, oriented X3, no focal deficits. Absent: pronater drift, facial droop, speech deficit - Skin Skin exam: Present: dry, intact Internal Medicine: Result - Labs CBC & Chem 7: 09/09/16 04:47 09/09/16 04:47 Labs: Short CBC 09/09/16 Range/Units 04:47 WBC 10.2 (4.3-11.1) K/mcL Hgb 11.3 L (11.5-15.4) g/dL Hct 36.7 (35.3-44.9) % Plt Count 229 (140-400) K/mcL Neutrophils # 6.7 (1.6-8.9) K/mcL BMP 09/09/16 04:47 Sodium 138 Potassium 4.5 Chloride 103 Carbon Dioxide 22 BUN 23 H Creatinine 1.22 H Glucose 131 H Calcium 9.1 - ABG Interpretation ABG results: PT/INR, D-dimer PT 24.4 Seconds (9.4-12.1) H 09/09/16 04:47 - Impressions Impressions Chest X-Ray 09/09/16 07:00 IMPRESSION: Mild congestion. Findings appear slightly worse but this may be secondary to poor inspiratory effort D/ / Mohsen Webb MD / Mohsen Webb MD Interpreting Provider: Mohsen Webb MD - VTE Documentation of Mechanical Device: Intermittent pneumatic compression device Consult Discharge Plan - Plan Referrals: Jose Xie DO [Primary Care Provider] -
--- NOTE | 2016-09-09 14:28 | Orthopedics Progress Note ---
Date of Encounter: 09/09/16 Time of Encounter: 14:00 - Assessment and Plan (1) Hip fracture, right Current Visit: Yes Status: Acute Plan for right hip IM naling by Dr. Eason on 09/10/16 at same time as repair of hand fracture. Patient has no further questions about surgery. Ice as needed for swelling. NWB to RLE. Pain control per hospitalist. NPO after midnight tonight. Qualifiers: Encounter type: initial encounter Fracture type: closed Qualified Code(s) : S72.001A - Fracture of unspecified part of neck of right femur, initial encounter for closed fracture (2) Hand fracture, right Current Visit: Yes Status: Acute Plan for right 5th MC IM naling by Dr. Eason on 09/10/16 at same time as repair of hip fracture. No further questions about surgery. Ice as needed for swelling. NWB to RUE. Leave splint intact until surgery. Pain control per hospitalist. NPO after midnight tonight. Qualifiers: Encounter type: initial encounter Fracture type: closed Qualified Code(s) : S62.91XA - Unspecified fracture of right wrist and hand, initial encounter for closed fracture Subjective Principal diagnosis: right hand and hip pain Interval history: Patient laying comfortably in bed with RUE elevated. States she has some pain in hand and hip but tolerable with medication. No events overnight. Objective Vital signs: Vital Signs Temp Pulse Resp BP Pulse Ox 09/09/16 11:13 98.8 F 76 16 149/82 95 09/09/16 06:54 99.2 F 88 18 138/75 93 09/09/16 04:22 98.8 F 90 20 136/74 93 Intake and Output 09/08/16 09/09/16 09/09/16 23:59 07:59 15:59 Intake Total 98 / 98 Output Total 350 / 350 Balance -252 / -252 Intake: IV Fluids 98 / 98 Heparin 25,000 UNIT/500 98 / 98 ML D5W 25,000 unit In 500 ml @ 14 UNIT/KG/HR 24. 436 mls/hr IVC .[id number] [facility] Rx#:[id number] Output: Catheter 350 / 350 Incision: clean and dry (splint intact to RUE and NV intact distally, brisk cap refill. Continued pain to right hip with palpation, no calf tenderness, NV intact.) - Labs CBC & BMP: 09/09/16 04:47 09/09/16 04:47 Labs: Abnormal lab results RBC 3.73 M/mcL (3.82-4.97) L 09/09/16 04:47 Hgb 11.3 g/dL (11.5-15.4) L 09/09/16 04:47 MCHC 30.8 g/dL (31.6-35.5) L 09/09/16 04:47 RDW 15.5 % (11.5-14.5) H 09/09/16 04:47 PT 24.4 Seconds (9.4-12.1) H 09/09/16 04:47 APTT 42.8 Seconds (26.0-36.0) H D 09/09/16 13:01 Heparin Anti-Xa, Unfract 0.97 IU/mL (0.30-0.70) H 09/09/16 04:47 BUN 23 mg/dL (7-20) H 09/09/16 04:47 Creatinine 1.22 mg/dL (0.57-1.11) H 09/09/16 04:47 Est GFR ( Amer) 51 (> 60) L 09/09/16 04:47 Est GFR (Non-Af Amer) 42 (> 60) L 09/09/16 04:47 Glucose 131 mg/dL (70-99) H 09/09/16 04:47 POC Glucose 141 (58-89) H 09/08/16 20:53 - VTE Documentation of Mechanical Device: Intermittent pneumatic compression device Consult Discharge Plan - Plan Referrals: Jose Xie DO [Primary Care Provider] -
[2016-09-09] MEDS: levoFLOXacin 500 MG TABLET PO SCH (17:24)
--- NOTE | 2016-09-09 20:15 | Anesthesia Evaluation PreOp ---
Date of Encounter: 09/09/16 Time of Encounter: 20:13 - Past History Planned Operation: r hip im nail Cardiac History: CHF (denies recent cp but per POA (daughter) she does have sob/ dyspnea with walking), Other ([facility] 09/07: ef 34, mild cad. lad 4-50 stenosis. h/ o dvt,on coumadin, inr 2.0. Ao aneurysm. 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 History: CVA (one year ago, sx's dizziness/n/v), Other (carotid doppler: r ica 40-59 stenosis) Other Medical History: Thyroid, GERD Anesthesia History: No Prior Anesthetic Complications, Past Anesthesia ( hysterect, colectomy, cholecyst) Alcohol Use: none Drug use: none Medications and Allergies Aspirin Enteric Coated [Aspirin EC] 81 mg PO DAILY 09/06/15 [History] Ca/D3/Mag#11/Zinc/Marketing Outreach Coordinator/Leonardo/Bor [Caltrate 600+D Plus Tablet] 1 tab PO BID [History] Cholecalciferol (D-3) [Vitamin D] 2,000 unit PO DAILY 09/06/15 [History] Lansoprazole [Prevacid] 30 mg PO DAILY 09/06/15 [History] Levothyroxine [Synthroid] 75 mcg PO DAILY 09/06/15 [History] Multivit-Min/Iron/Folic/Lutein [Centrum Silver Women Tablet] 1 tab PO DAILY [History] Metoprolol XL (24 HR) Succ [Toprol Xl] 25 mg PO DAILY tab.er.24h 09/11/15 [Rx] Vit C/E/Zn/Coppr/Lutein/Zeaxan [Preservision Areds 2 Softgel] 1 cap PO BID 11/18 [History] Nystatin Cream [Mycostatin Cream] 1 appl TP BID PRN 01/28/16 [History] Meclizine [Antivert] 12.5 - 25 mg PO DAILY PRN 05/07/16 [History] Oxybutynin Chloride [Ditropan Xl] 10 mg PO HS 05/07/16 [History] L. Acidophilus/Pectin, [place] [Acidophilus Probiotic Capsule] 1 each PO DAILY [History] Mineral Oil/Petrolatum,White [Refresh P.m. Ointment] 1 appl OP HS 06/04/16 [ History] Furosemide [Lasix] 20 mg PO DAILY PRN 09/08/16 [History] Nitrofurantoin (BID) [Macrobid] 100 mg PO DAILY 09/08/16 [History] Warfarin [Coumadin] 5 mg PO Q72H 09/08/16 [History] Allergies azithromycin Allergy (Verified 11/19/15 11:15) Rash ketoconazole Allergy (Verified 11/19/15 11:15) Rash methylprednisolone Allergy (Verified 11/19/15 11:15) Blister Penicillins Allergy (Verified 11/19/15 11:15) Rash tramadol Adverse Reaction (Verified 11/19/15 11:15) Nausea - Meds/Allergy Pre-op Review Medications Reviewed: Yes Allergies Reviewed: Yes Beta Blockers on Current Med List: Yes If Beta Blockers taken, Date/Time (Last Dose taken): metoprolol 09/09: 10:00 Anesthesia Results - Labs 09/09/16 04:47 09/09/16 04:47 - Imaging EKG: report reviewed (sr) Anesthesia Exam Vital Signs/O2 Sat/Glucose, Most Current Temp Pulse Resp BP Pulse Ox 09/09/16 20:09 99 F 80 20 133/76 93 Height: 1.68 Weight: 87 NPO (# of Hours): >8 - HEENT Pupil (Motor): Pupils equal, EOMI Mallampati: II Teeth: Poor dentition Oral Opening: Greater than 3 - CASSEROLE PREPARER LOC: Confused CASSEROLE PREPARER Motor: Normal RUE, Normal LUE, Normal RLE, Normal LLE, Normal Face CASSEROLE PREPARER Sensory: Normal: RUE, LUE, RLE, LLE, Face - Cardiac Rhythm: Regular Murmur: None - Pulmonary Breath Sounds: bilateral Clear Respiratory Effort: Symmetrical Anesthesia Assess/Plan ASA Score: 3 Modified Edward Scale for Level of Consciousness: Cooperative, oriented, and tranquil Anesthetic Plan: General Monitoring Plan: Standard Monitors Recovery Plan: PACU
[2016-09-09] MEDS: *HR* Heparin 5,000 UNIT/ML VIAL IVP PRN (23:06)
[2016-09-10] MEDS: Heparin 25,000 UNIT/500 ML D5W 25,000 UNIT/500 ML MLS IVC SCH ×2 (03:14→22:44)
[2016-09-10 05:17] LABS: INR 1.7; Prothrombin Time 18.1 Seconds (9.4-12.1)
[2016-09-10 05:26] LABS: Basophils % 0.4 %; Eosinophils # 0.6 K/mcL (0.0-0.6); Eosinophils % 5.2 %; Hematocrit 33.3 % (35.3-44.9); Hemoglobin 10.7 g/dL (11.5-15.4); Immature Granulocytes % 0.6 % (0-4); Lymphocytes # 2.2 K/mcL (0.6-4.6); Lymphocytes % 20.1 %; Mean Corpuscular HGB Conc 32.1 g/dL (31.6-35.5); Mean Corpuscular Hemoglobin 31.2 pg (28.0-33.3); Mean Corpuscular Volume 97.1 fL (83.0-100.0); Monocytes # 1.2 K/mcL (0.0-1.3); Monocytes % 11.2 %; Neutrophils # 6.9 K/mcL (1.6-8.9); Platelet Count 186 K/mcL (140-400); Red Blood Count 3.43 M/mcL (3.82-4.97); Red Cell Distribution Width 15.1 % (11.5-14.5); Segmented Neutrophils % 62.5 %
[2016-09-10 05:27] LABS: BUN/Creatinine Ratio 17 (6-26); Blood Urea Nitrogen 18 mg/dL (7-20); Calcium 8.8 mg/dL (8.6-10.8); Carbon Dioxide 24 mEq/L (19-29); Chloride 99 mEq/L (98-109); Glucose 117 mg/dL (70-99); Osmolality,Calculated 283 (280-300); Potassium 3.9 mEq/L (3.5-4.5); Sodium 135 mEq/L (136-145); eGFR For African Americans > 60 (> 60); eGFR For Non-African Americans 50 (> 60)
[2016-09-10] MEDS: *HR* Heparin 5,000 UNIT/ML VIAL IVP PRN (05:35)
[2016-09-10] MEDS: Furosemide 20 MG TABLET PO SCH (08:09)
[2016-09-10] MEDS: Aspirin Enteric Coated 81 MG Tablet PO SCH (08:09)
[2016-09-10] MEDS: levoFLOXacin 500 MG TABLET PO SCH (08:09)
[2016-09-10] MEDS: *HR* HYDROcodone/Acet 5/325 mg TABLET PO PRN (08:16)
[2016-09-10] MEDS: Metoprolol XL (24 HR) Succ 25 MG TAB.ER.24H PO SCH (08:18)
--- NOTE | 2016-09-10 11:46 | Internal Med Progress Note ---
Date of Encounter: 09/10/16 Time of Encounter: 11:46 - Assessment and plan (1) Hypothyroid Current Visit: Yes Status: Chronic Assessment and plan: Continue home meds Qualifiers: Hypothyroidism type: unspecified Qualified Code(s): E03.9 - Hypothyroidism , unspecified (2) CKD (chronic kidney disease) stage 3, GFR 30-59 ml/min Current Visit: Yes Status: Chronic Assessment and plan: Avoid nephrotoxins Cr at baseline (3) Atrial fibrillation Current Visit: Yes Status: Chronic Assessment and plan: rate controlled, continue BB, heparin Qualifiers: Atrial fibrillation type: paroxysmal Qualified Code(s): I48.0 - Paroxysmal atrial fibrillation (4) DVT (deep venous thrombosis) Current Visit: Yes Status: Chronic Assessment and plan: Heparin drip for now Hold coumadin for surgery INR 2 Monitor INR, CBC Qualifiers: DVT location: lower extremity Affected thrombotic vein of extremity: unspecified vein of extremity Laterality: unspecified laterality Chronicity : unspecified Qualified Code(s): I82.409 - Acute embolism and thrombosis of unspecified deep veins of unspecified lower extremity (5) CHF (congestive heart failure) Current Visit: Yes Status: Chronic Assessment and plan: Echo 09/09/16 shows EF 60%. Normal LV size and systolic function. Atypical septal motion. Mild diastolic dysfunction of LV. Continue current meds, including lasix Qualifiers: Congestive heart failure type: systolic Congestive heart failure chronicity : chronic Qualified Code(s): I50.22 - Chronic systolic (congestive) heart failure (6) UTI (urinary tract infection) Current Visit: Yes Status: Acute Assessment and plan: Continue po levoflox for 4 more days Monitor renal function Qualifiers: Urinary tract infection type: acute cystitis Hematuria presence: without hematuria Qualified Code(s): N30.00 - Acute cystitis without hematuria (7) Hip fracture, right Current Visit: Yes Status: Acute Assessment and plan: For surgery today Qualifiers: Encounter type: initial encounter Fracture type: closed Qualified Code(s) : S72.001A - Fracture of unspecified part of neck of right femur, initial encounter for closed fracture (8) Hand fracture, right Current Visit: Yes Status: Acute Assessment and plan: For surgery today Qualifiers: Encounter type: initial encounter Fracture type: closed Qualified Code(s) : S62.91XA - Unspecified fracture of right wrist and hand, initial encounter for closed fracture (9) Delirium Current Visit: Yes Status: Acute Assessment and plan: Hypoactive, continue to monitor - Subjective Interval history: 81 F Seen and evaluated at bedside Being managed for R hip and R hand fracture Has significant cardiac hx-CHFrEF EF 30-35%, Aortic aneurysm, Recurrent DVTs Leukocytosis has resolved Today patient has no new complains, she is confused, oriented X2 only - Constitutional Vitals: Temp Pulse Resp BP Pulse Ox 98.7 F 68 18 117/58 94 09/10/16 07:00 09/10/16 07:00 09/10/16 07:00 09/10/16 07:00 09/10/16 07:00 General appearance: Present: A&O X 2, pleasant, no acute distress - Head Head exam: Present: atraumatic, normocephalic Additional comments: Right scalp dressing, site of skin graft, clean and dry - Eye Eye exam: Present: PERRL, conjuntiva pink, sclera anicteric Pupils: Present: PERRL - Neck Neck exam general surgery: Present: supple, trachea midline. Absent: lymphadenopathy - Respiratory Respiratory exam: Present: CTAB. Absent: accessory muscle use, rales, rhonchi, wheezes - Cardiovascular Cardiovascular exam: Present: RRR, +S1, +S2. Absent: diastolic murmur, gallop, rubs, systolic murmur Additional comments: Chest wall dressing on left -donor skin graft site, clean and dry - GI/Abdominal GI/Abdominal exam: Present: normal bowel sounds, soft, no peritoneal signs. Absent: distended, tenderness - Extremities Exam Extremities exam: Present: warm, radial pulses palpable and symetrical. Absent : calf tenderness, cyanotic, pedal edema Additional comments: R arm in splint and dressing R lower extremity externally rotated and short Normal pulses, normal color - Neurological Exam Neurological exam: Present: alert, CN II-XII intact, no focal deficits. Absent : oriented X3, pronater drift, facial droop, speech deficit - Skin Skin exam: Present: dry Internal Medicine: Result - Labs CBC & Chem 7: 09/10/16 04:59 09/10/16 04:59 Labs: Short CBC 09/10/16 Range/Units 04:59 WBC 11.1 (4.3-11.1) K/mcL Hgb 10.7 L (11.5-15.4) g/dL Hct 33.3 L (35.3-44.9) % Plt Count 186 (140-400) K/mcL Neutrophils # 6.9 (1.6-8.9) K/mcL BMP 09/10/16 04:59 Sodium 135 L Potassium 3.9 Chloride 99 Carbon Dioxide 24 BUN 18 Creatinine 1.06 Glucose 117 H Calcium 8.8 - ABG Interpretation ABG results: PT/INR, D-dimer PT 18.1 Seconds (9.4-12.1) H 09/10/16 04:59 - VTE Documentation of Mechanical Device: Intermittent pneumatic compression device Consult Discharge Plan - Plan Referrals: Jose Xie DO [Primary Care Provider] -
[2016-09-10] MEDS: *HR* Morphine 2 MG/ML SYRINGE IVP PRN (13:39)
[2016-09-10] MEDS ORDERED: *HR* Propofol 200 MG/20 ML VIAL IVP ONE (16:21)
[2016-09-10] MEDS ORDERED: *HR* FentaNYL (PF) 100 MCG/2 ML VIAL ONE (16:21)
[2016-09-10] MEDS ORDERED: Ondansetron 4 MG/2 ML VIAL ONE (16:21)
[2016-09-10] MEDS ORDERED: Lidocaine -MPF 2% 2 ML VIAL ONE (16:21)
[2016-09-10] MEDS ORDERED: *HR* Succinylcholine 200 MG/10 ML VIAL IVP ONE (16:21)
[2016-09-10] MEDS ORDERED: Clindamycin 900 MG/50 ML 900 MG/50 ML IV.SOLN IVPB ONE (16:40)
[2016-09-10] MEDS ORDERED: *HR* HYDROmorphone (PF) 1 MG/ML SYRINGE IVP PRN (17:21)
[2016-09-10] MEDS ORDERED: Acetaminophen IV 1,000 MG/100 ML INFUS..BTL ONE (18:32)
--- NOTE | 2016-09-10 18:33 | Operative Note ---
Date of procedure: 09/10/16 Pre-op diagnosis: Right hip basicervical fracture. Right fifth metacarpal neck fracture Post-op diagnosis: same Procedure: Right hip intramedullary nailing. Right-hand intramedullary nailing of fifth metacarpal neck fracture Implants: [place] gamma nail Chong/[employer] small bone fixation system Anesthesia: BOBBIA Surgeon: Alan Eason Estimated blood loss (cc): 150 Specimen: 0 Condition: stable Disposition: PACU Procedure in Detail: The patient received IV antibiotics in the holding area. She was brought to the operating room, sign in was performed. The patient underwent general anesthesia on the hospital bed. She was then transferred to the fracture table in supine position. The patient was positioned with the support groin post, the affected right lower extremity in the traction hernandez and the contralateral lower extremity in a well-padded limb hernandez with a hip flexed and abducted out of the way. Fluoroscopy was then brought in, the fractures visualized, and the fracture reduced. We checked on AP and true lateral view of the hip. Once satisfactory the right hip, from the pelvis down to the knee, was prepped and draped in usual sterile fashion. A timeout was performed. The level of the greater trochanter was palpated, a 4-5 cm oblique incision was made just proximally, , followed by Bovie dissection. The hip abductor was sharply split in line with its fibers with a curved Pike scissors. The tip of the greater trochanter was palpable. A curved awl was then positioned on the tip. Its position was checked on fluoroscopy, slightly advanced, and we checked the lateral view. Once appropriately positioned, the aggressive awl was then used to open the proximal femur down to level of the lesser trochanter. A short gamma nail with 125 degree neck angle, 11 mm diameter, was assembled, and appropriately inserted into the proximal femur. The appropriate level was checked under fluoroscopy. The trochars were placed in the jig at 125 degree neck angle was then positioned against the skin, and the radiolucent guide was used to assist in positioning. Once satisfactory a 2.5 cm incision was made, the fascia was bluntly split along with the muscle fibers of the vastus lateralis. The triple trocar was advanced up against the lateral cortex. The guidepin was then driven up into the femoral head, checking AP and lateral views. A 95 mm length lag screw was chosen. Overdrilled the guidewire, and the lag screw was inserted over the guidewire. Once close to the edge of the femoral head, the T-handled was held parallel to the nail. The setscrew was then positioned but not fully tightened. Traction was then taken off the leg, and the fracture compressed. The setscrew was fully tightened at the top, and then backed off a quarter turn to allow the lag screw to slide if needed. The triple trochars for the distal static locking screw were placed in the jig, a 1 cm longitudinal incision was made. The trochars were advanced to the cortex , and drilled across. The depth was measured and a 35 mm by 5 mm bicortical screw was placed. All trochars and jig were removed. Final fluoroscopy shots were taken and saved showing good AP and lateral views of the hip and also distally at the tip of the nail. The wounds were irrigated with normal saline. Fascia over the abductors was closed with 1 Vicryl [id number] stitches, including the deep subcutaneous fat layer. Subcutaneous tissues were closed with 2-0 Vicryl, and the skin incisions were closed with mikie. Sterile dressings were applied. The table leg extension was replaced and the patient's legs were removed from the holders positioned flat on the table. Hand table was then attached to the OR table. A tourniquet was placed on the right arm close to the axilla. The right upper extremity was then prepped and draped in usual sterile fashion. A timeout was performed. The fluoroscopy unit was brought in and visualized the fracture. The base of the fifth metacarpal was identified and a 1 cm longitudinal incision was made on the dorsum of the right hand. I bluntly dissected through the subcutaneous tissue, the bipolar was used to obtain hemostasis. The extensor tendon was identified. Next the 1.6 mm nail, preloaded on the awl, was chosen. The awl was then used to open up the dorsal ulnar aspect of the base of the fifth metacarpal. The nail was then advanced up the shaft to the fracture site. The fracture was reduced and the nail was advanced past into the head of the metacarpal. The nail was then rotated with the tip pointing up to maintain the alignment. We checked under fluoroscopy for the reduction, and alignment, and visually checked the patient's hand for alignment and also rotation. The nail was backed up and some final adjustments were made, and then advanced back into the head. Once we had good position of the nail and good alignment of the fracture, the nail handle was then cut off. The nail was then bent at the bone interface, and then cut beneath the level of the skin. The wound was copiously irrigated with normal saline. The patient was injected with 6 mL of 0.5% Marcaine for postoperative pain. The rubber end cap was then applied to the tip of the nail. Final fluoroscopy shots were taken and saved, showing an AP, oblique, lateral, and a modified lateral view. The skin was then closed with 5-0 nylon mattress and simple sutures. Sterile dressings were applied and a dorsal MP splint was then applied. The patient was transferred to hospital bed where she was extubated and taken to recovery room in stable condition. The patient will be seen at postoperative week #1 for dressing changes and placed into an MP cast.
--- NOTE | 2016-09-10 19:04 | Anesthesia Evaluation Post Op ---
Date of Encounter: 09/10/16 Time of Encounter: 19:10 - Vital Signs Vital Signs: Vital Signs/O2 Sat/Glucose, Most Current Temp Pulse Resp BP Pulse Ox 09/10/16 18:58 97.5 F L 84 15 152/73 93 09/10/16 18:48 84 13 156/75 97 09/10/16 18:38 72 12 141/72 95 09/10/16 18:28 97.0 F L 83 14 129/74 94 - Lungs Lungs: Clear Ascult./Percussion - Airway Airway: Non-obstructed - Cardiovascular Regular Rate - Mental Status Mental Status: Alert & Oriented, Answers Appropriately - Pain Pain Scale: 1 - Nausea Vomiting Nausea Vomiting: Not Present - Hydration Hydration: NPO - Discharge PostOp Status: Transfer Patient to floor
[2016-09-10] MEDS ORDERED: *HR* Heparin 5,000 UNIT/ML VIAL IVP PRN (19:45)
[2016-09-10] MEDS ORDERED: Acetaminophen 325 MG TABLET PO PRN (19:45)
[2016-09-10] MEDS ORDERED: Ondansetron 4 MG/2 ML VIAL IVP PRN (19:45)
[2016-09-10] MEDS ORDERED: Sennosides 8.6 MG TABLET PO PRN (19:45)
[2016-09-10] MEDS ORDERED: *HR* OxyCODONE Immed Rel 5 MG TABLET PO PRN (19:45)
[2016-09-10] MEDS ORDERED: *HR* HYDROcodone/Acet 5/325 mg TABLET PO PRN ×2 (19:45)
[2016-09-10] MEDS ORDERED: Naloxone 0.4 MG/ML INJ IVP PRN (19:45)
[2016-09-10] MEDS ORDERED: *HR* Morphine 2 MG/ML SYRINGE IVP PRN (19:45)
[2016-09-10] MEDS ORDERED: *HR* Warfarin 5 MG TABLET PO SCH (20:00)
[2016-09-10] MEDS ORDERED: Famotidine 20 MG TABLET PO SCH (21:00)
[2016-09-10] MEDS: D5% in 0.45% NACL 1,000 ML IVC SCH (22:36)
[2016-09-10] MEDS: Famotidine 20 MG TABLET PO SCH (22:42)
[2016-09-10] MEDS: Clindamycin 900 MG/50 ML 900 MG/50 ML IV.SOLN IVPB SCH (23:07)
[2016-09-11 05:04] LABS: Basophils % 0.3 %; Eosinophils # 0.1 K/mcL (0.0-0.6); Eosinophils % 0.7 %; Hematocrit 31.2 % (35.3-44.9); Hemoglobin 10.1 g/dL (11.5-15.4); Immature Granulocytes % 0.8 % (0-4); Lymphocytes # 1.3 K/mcL (0.6-4.6); Lymphocytes % 12.1 %; Mean Corpuscular HGB Conc 32.4 g/dL (31.6-35.5); Mean Corpuscular Hemoglobin 31.6 pg (28.0-33.3); Mean Corpuscular Volume 97.5 fL (83.0-100.0); Mean Platelet Volume 10.4 fL (9.4-12.4); Monocytes % 9.4 %; Neutrophils # 8.2 K/mcL (1.6-8.9); Platelet Count 179 K/mcL (140-400); Segmented Neutrophils % 76.7 %
[2016-09-11 05:11] LABS: INR 1.4; Prothrombin Time 14.7 Seconds (9.4-12.1)
[2016-09-11 05:14] LABS: Activated Partial Thrombo Time 46.4 Seconds (26.0-36.0); BUN/Creatinine Ratio 16 (6-26); Blood Urea Nitrogen 16 mg/dL (7-20); Calcium 8.6 mg/dL (8.6-10.8); Carbon Dioxide 26 mEq/L (19-29); Chloride 101 mEq/L (98-109); Glucose 140 mg/dL (70-99); Osmolality,Calculated 285 (280-300); Potassium 4.2 mEq/L (3.5-4.5); Sodium 136 mEq/L (136-145); eGFR For African Americans > 60 (> 60); eGFR For Non-African Americans 54 (> 60)
[2016-09-11] MEDS: *HR* Heparin 5,000 UNIT/ML VIAL IVP PRN (05:31)
--- NOTE | 2016-09-11 07:01 | Orthopedics Progress Note ---
Date of Encounter: 09/11/16 Time of Encounter: 07:01 Subjective Principal diagnosis: right hand and hip pain Interval history: Patient was seen this morning doing well without complaints. Afebrile vital signs stable. Operative extremity: Neurovascularly intact Dressing clean dry and intact Calves nontender Assessment and plan: Continue with postoperative care ortho stable for dc Objective Vital signs: Vital Signs Temp Pulse Resp BP Pulse Ox 09/11/16 04:40 97.9 F 80 16 136/56 93 09/10/16 23:57 97.9 F 72 14 127/71 93 09/10/16 22:45 99.1 F 81 19 131/64 91 09/10/16 21:40 98.9 F 66 18 120/55 92 09/10/16 20:40 97.6 F 85 16 138/69 93 09/10/16 20:03 97.6 F 86 15 128/66 93 09/10/16 19:20 98.8 F 87 17 154/96 93 09/10/16 19:08 75 15 148/73 93 09/10/16 18:58 97.5 F L 84 15 152/73 93 09/10/16 18:48 84 13 156/75 97 09/10/16 18:38 72 12 141/72 95 09/10/16 18:28 97.0 F L 83 14 129/74 94 Intake and Output 09/10/16 09/10/16 09/11/16 15:59 23:59 07:59 Intake Total 84 / 84 75 / 75 339 / 339 Output Total 850 / 850 250 / 250 250 / 250 Balance -766 / -766 -175 / -175 89 / Intake: IV Fluids 239 / 239 Heparin 25,000 UNIT/500 189 / 189 ML D5W 25,000 unit In 500 ml @ 14 UNIT/KG/HR 24. 436 mls/hr IVC .[id number] [facility] Rx#:[id number] Cleocin Premix 900 MG/50 50 / 50 ML 900 mg In 50 ml @ 50 mls/hr IVPB Q8HR [facility] Rx#: [id number] Oral 75 / 75 100 / 100 Output: Estimated Blood Loss 150 / 150 Catheter 850 / 850 100 / 100 250 / 250 - Labs CBC & BMP: 09/11/16 04:27 09/11/16 04:27 Labs: Abnormal lab results RBC 3.20 M/mcL (3.82-4.97) L 09/11/16 04:27 Hgb 10.1 g/dL (11.5-15.4) L 09/11/16 04:27 Hct 31.2 % (35.3-44.9) L 09/11/16 04:27 RDW 15.0 % (11.5-14.5) H 09/11/16 04:27 PT 14.7 Seconds (9.4-12.1) H 09/11/16 04:27 APTT 46.4 Seconds (26.0-36.0) H 09/11/16 04:27 Heparin Anti-Xa, Unfract 0.97 IU/mL (0.30-0.70) H 09/09/16 04:47 Est GFR (Non-Af Amer) 54 (> 60) L 09/11/16 04:27 Glucose 140 mg/dL (70-99) H 09/11/16 04:27 POC Glucose 141 (58-89) H 09/08/16 20:53 - VTE Documentation of Mechanical Device: Intermittent pneumatic compression device Consult Discharge Plan - Plan Referrals: Jose Xie DO [Primary Care Provider] -
[2016-09-11] MEDS: levoFLOXacin 500 MG TABLET PO SCH (08:38)
[2016-09-11] MEDS: Aspirin Enteric Coated 81 MG Tablet PO SCH (08:39)
[2016-09-11] MEDS: Metoprolol XL (24 HR) Succ 25 MG TAB.ER.24H PO SCH (08:39)
[2016-09-11] MEDS: Furosemide 20 MG TABLET PO SCH (08:39)
[2016-09-11] MEDS: Cholecalciferol (D-3) 1,000 UNIT TABLET PO SCH (08:39)
[2016-09-11] MEDS: Clindamycin 900 MG/50 ML 900 MG/50 ML IV.SOLN IVPB SCH (08:44)
[2016-09-11] MEDS: Acetaminophen 325 MG TABLET PO PRN ×3 (09:26→21:35)
--- NOTE | 2016-09-11 11:05 | Internal Med Progress Note ---
Date of Encounter: 09/11/16 Time of Encounter: 11:03 - Assessment and plan (1) Hypothyroid Current Visit: Yes Status: Chronic Assessment and plan: Continue home meds Qualifiers: Hypothyroidism type: unspecified Qualified Code(s): E03.9 - Hypothyroidism , unspecified (2) CKD (chronic kidney disease) stage 3, GFR 30-59 ml/min Current Visit: Yes Status: Chronic Assessment and plan: Avoid nephrotoxins Cr at baseline (3) Atrial fibrillation Current Visit: Yes Status: Chronic Assessment and plan: rate controlled, continue BB, heparin, coumadin Qualifiers: Atrial fibrillation type: paroxysmal Qualified Code(s): I48.0 - Paroxysmal atrial fibrillation (4) DVT (deep venous thrombosis) Current Visit: Yes Status: Chronic Assessment and plan: Heparin drip for now INR 1.4 Continue coumadin, give 5mg tonight Monitor INR, CBC Qualifiers: DVT location: lower extremity Affected thrombotic vein of extremity: unspecified vein of extremity Laterality: unspecified laterality Chronicity : unspecified Qualified Code(s): I82.409 - Acute embolism and thrombosis of unspecified deep veins of unspecified lower extremity (5) CHF (congestive heart failure) Current Visit: Yes Status: Chronic Assessment and plan: Echo 09/09/16 shows EF 60%. Normal LV size and systolic function. Atypical septal motion. Mild diastolic dysfunction of LV. Continue current meds, including lasix Qualifiers: Congestive heart failure type: systolic Congestive heart failure chronicity : chronic Qualified Code(s): I50.22 - Chronic systolic (congestive) heart failure (6) UTI (urinary tract infection) Current Visit: Yes Status: Acute Assessment and plan: Continue po levoflox for 3 more days Monitor renal function Qualifiers: Urinary tract infection type: acute cystitis Hematuria presence: without hematuria Qualified Code(s): N30.00 - Acute cystitis without hematuria (7) Hip fracture, right Current Visit: Yes Status: Acute Assessment and plan: POD 1 Continue post-op care Qualifiers: Encounter type: initial encounter Fracture type: closed Qualified Code(s) : S72.001A - Fracture of unspecified part of neck of right femur, initial encounter for closed fracture (8) Hand fracture, right Current Visit: Yes Status: Acute Assessment and plan: POD 1, stable Qualifiers: Encounter type: initial encounter Fracture type: closed Qualified Code(s) : S62.91XA - Unspecified fracture of right wrist and hand, initial encounter for closed fracture (9) Delirium Current Visit: Yes Status: Acute Assessment and plan: Improved, Hypoactive, continue to monitor - Subjective Interval history: 81 F Seen and evaluated at bedside Being managed for R hip and R hand fracture Has significant cardiac hx-CHFrEF EF 30-35%, Aortic aneurysm, Recurrent DVTs Leukocytosis has resolved POD 1 Has no new complains Per note, she is accepted at [facility] Patient with recurrent DVTs, still on heparin drip, INR subtherapeutic. Coumadin has been restarted Will give additional coumadin tonight (per patient's daughter at bedside, patient taked 5mg q72H and 2.5mg inbetween) Rpt CBC and INR a.m - Constitutional Vitals: Temp Pulse Resp BP Pulse Ox 98.5 F 79 20 155/82 92 09/11/16 07:05 09/11/16 07:05 09/11/16 07:05 09/11/16 07:05 09/11/16 07:05 General appearance: Present: A&O X 2, pleasant, no acute distress - Head Additional comments: Left frontal scalp with clean wound dressing - Eye Eye exam: Present: PERRL, conjuntiva pink, sclera anicteric Pupils: Present: PERRL - Neck Neck exam general surgery: Present: supple, trachea midline. Absent: lymphadenopathy - Respiratory Respiratory exam: Present: CTAB. Absent: accessory muscle use, rales, rhonchi, wheezes Additional comments: Left anterior chest wall with clean wound dressing, wound inspected clean and dry(skin graft donor site) - Cardiovascular Cardiovascular exam: Present: RRR, +S1, +S2. Absent: diastolic murmur, gallop, rubs, systolic murmur - GI/Abdominal GI/Abdominal exam: Present: normal bowel sounds, soft, no peritoneal signs. Absent: distended, tenderness - Extremities Exam Extremities exam: Present: warm, radial pulses palpable and symetrical. Absent : calf tenderness, cyanotic, pedal edema Additional comments: R arm in cast, able to wiggle fingers, adequate perfusion distally right hip wound dressing clean and dry, right foot is warm, capillary refill normal, no pedal edema - Neurological Exam Neurological exam: Present: alert, CN II-XII intact, no focal deficits. Absent : oriented X3, pronater drift, facial droop, speech deficit - Skin Skin exam: Present: dry, intact Internal Medicine: Result - Labs CBC & Chem 7: 09/11/16 04:27 09/11/16 04:27 Labs: Short CBC 09/11/16 Range/Units 04:27 WBC 10.7 (4.3-11.1) K/mcL Hgb 10.1 L (11.5-15.4) g/dL Hct 31.2 L (35.3-44.9) % Plt Count 179 (140-400) K/mcL Neutrophils # 8.2 (1.6-8.9) K/mcL BMP 09/11/16 04:27 Sodium 136 Potassium 4.2 Chloride 101 Carbon Dioxide 26 BUN 16 Creatinine 0.99 Glucose 140 H Calcium 8.6 - ABG Interpretation ABG results: PT/INR, D-dimer PT 14.7 Seconds (9.4-12.1) H 09/11/16 04:27 - Impressions Impressions Fluoroscopy 09/10/16 00:00 IMPRESSION: Intraprocedural fluoroscopic spot images as above. See separate procedure report for more information. D/ / Fortino Duong MD / Fortino Duong MD Interpreting Provider: Fortino uDong MD Fluoroscopy 09/10/16 00:00 IMPRESSION: Intraprocedural fluoroscopic spot images as above. See separate procedure report for more information. D/ / Renaldo Sofia MD / Renaldo Sofia MD Interpreting Provider: Renaldo Sofia MD - VTE Documentation of Mechanical Device: Intermittent pneumatic compression device Consult Discharge Plan - Plan Referrals: Jose Xie DO [Primary Care Provider] -
[2016-09-11] MEDS ORDERED: *HR* Warfarin 5 MG TABLET PO ONE (18:00)
[2016-09-11] MEDS: Famotidine 20 MG TABLET PO SCH (21:34)
[2016-09-12 01:14] LABS: Basophils % 0.4 %; Eosinophils # 0.8 K/mcL (0.0-0.6); Eosinophils % 7.9 %; Hematocrit 27.9 % (35.3-44.9); Immature Granulocytes % 1.6 % (0-4); Lymphocytes # 2.6 K/mcL (0.6-4.6); Lymphocytes % 24.3 %; Mean Corpuscular HGB Conc 32.3 g/dL (31.6-35.5); Mean Corpuscular Hemoglobin 31.8 pg (28.0-33.3); Mean Corpuscular Volume 98.6 fL (83.0-100.0); Mean Platelet Volume 10.4 fL (9.4-12.4); Monocytes # 1.1 K/mcL (0.0-1.3); Monocytes % 10.6 %; Neutrophils # 5.8 K/mcL (1.6-8.9); Platelet Count 173 K/mcL (140-400); Red Blood Count 2.83 M/mcL (3.82-4.97); Red Cell Distribution Width 15.2 % (11.5-14.5); Segmented Neutrophils % 55.2 %
[2016-09-12] MEDS: Acetaminophen 325 MG TABLET PO PRN (02:53)
[2016-09-12 03:47] LABS: INR 1.7
[2016-09-12] MEDS: D5% in 0.45% NACL 1,000 ML IVC SCH (03:59)
[2016-09-12] MEDS: *HR* Heparin 5,000 UNIT/ML VIAL IVP PRN (04:02)
[2016-09-12 04:04] LABS: BUN/Creatinine Ratio 16 (6-26); Blood Urea Nitrogen 15 mg/dL (7-20); Calcium 8.2 mg/dL (8.6-10.8); Carbon Dioxide 23 mEq/L (19-29); Chloride 104 mEq/L (98-109); Glucose 132 mg/dL (70-99); Osmolality,Calculated 289 (280-300); Potassium 3.6 mEq/L (3.5-4.5); Sodium 138 mEq/L (136-145); eGFR For African Americans > 60 (> 60); eGFR For Non-African Americans 59 (> 60)
[2016-09-12] MEDS: Heparin 25,000 UNIT/500 ML D5W 25,000 UNIT/500 ML MLS IVC SCH (04:18)
[2016-09-12] MEDS: MetroNIDAZOLE 500 MG/100 ML 500 MG/100 ML BAG IVPB SCH ×2 (06:37→15:59)
[2016-09-12 09:36] VITALS: BP 107/58
[2016-09-12] MEDS: Aspirin Enteric Coated 81 MG Tablet PO SCH (10:07)
[2016-09-12] MEDS: Furosemide 20 MG TABLET PO SCH (10:07)
[2016-09-12] MEDS: levoFLOXacin 500 MG TABLET PO SCH (10:07)
[2016-09-12] MEDS: Metoprolol XL (24 HR) Succ 25 MG TAB.ER.24H PO SCH (10:07)
[2016-09-12] MEDS: Cholecalciferol (D-3) 1,000 UNIT TABLET PO SCH (10:07)
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
--- NOTE | 2016-09-12 11:27 | Physician Discharge Referral ---
ExtendedCare Referral Info Transfer To: [facility] Provider in Charge: Dr. Douglas Provider in Charge after Transfer: PCP Institutional Level of Care: Skilled - Diagnosis (1) Hypothyroid Priority: Secondary Status: Chronic (2) CKD (chronic kidney disease) stage 3, GFR 30-59 ml/min Priority: Secondary Status: Chronic (3) Atrial fibrillation Priority: Secondary Status: Chronic (4) DVT (deep venous thrombosis) Priority: Secondary Status: Chronic (5) CHF (congestive heart failure) Priority: Secondary Status: Chronic (6) UTI (urinary tract infection) Priority: Primary Status: Acute (7) Hip fracture, right Priority: Primary Status: Acute (8) Hand fracture, right Priority: Primary Status: Acute (9) Delirium Priority: Primary Status: Acute Prognosis: Fair Aware of Diagnosis: Patient, Family Aware of Prognosis: Patient, Family - Transfer Medications Prescriptions: HYDROcodone/Acet 5/325 mg [[place] 5-325 mg] 1 tab PO Q4HR PRN #15 tablet PRN Reason: Moderate Pain 4-6 OxyCODONE Immed Rel [Roxicodone 5 MG] 5 mg PO Q4HR PRN #10 tablet PRN Reason: Severe Pain 7-10 metroNIDAZOLE [Flagyl] 500 mg PO TID #21 tablet Warfarin [Coumadin] 2.5 mg PO 1800 #10 tablet Home Medications: Aspirin Enteric Coated [Aspirin EC] 81 mg PO DAILY 09/06/15 [History] Ca/D3/Mag#11/Zinc/Hand Surgeon/Leonardo/Bor [Caltrate 600+D Plus Tablet] 1 tab PO BID [History] Cholecalciferol (D-3) [Vitamin D] 2,000 unit PO DAILY 09/06/15 [History] Lansoprazole [Prevacid] 30 mg PO DAILY 09/06/15 [History] Levothyroxine [Synthroid] 75 mcg PO DAILY 09/06/15 [History] Multivit-Min/Iron/Folic/Lutein [Centrum Silver Women Tablet] 1 tab PO DAILY [History] Metoprolol XL (24 HR) Succ [Toprol Xl] 25 mg PO DAILY tab.er.24h 09/11/15 [Rx] Vit C/E/Zn/Coppr/Lutein/Zeaxan [Preservision Areds 2 Softgel] 1 cap PO BID 11/18 [History] Nystatin Cream [Mycostatin Cream] 1 appl TP BID PRN 01/28/16 [History] Meclizine [Antivert] 12.5 - 25 mg PO DAILY PRN 05/07/16 [History] Oxybutynin Chloride [Ditropan Xl] 10 mg PO HS 05/07/16 [History] L. Acidophilus/Pectin, [place] [Acidophilus Probiotic Capsule] 1 each PO DAILY [History] Mineral Oil/Petrolatum,White [Refresh P.m. Ointment] 1 appl OP HS 06/04/16 [ History] Furosemide [Lasix] 20 mg PO DAILY PRN 09/08/16 [History] Warfarin [Coumadin] 5 mg PO Q72H 09/08/16 [History] Calcium Carbonate [Tums] 1,000 mg PO TID tab.chew 09/12/16 [Rx] Docusate [Colace] 100 mg PO BID capsule 09/12/16 [Rx] Famotidine [Pepcid] 20 mg PO HS tablet 09/12/16 [Rx] HYDROcodone/Acet 5/325 mg [[place] 5-325 mg] 1 tab PO Q4HR PRN #15 tablet [Rx] OxyCODONE Immed Rel [Roxicodone 5 MG] 5 mg PO Q4HR PRN #10 tablet 09/12/16 [Rx] Warfarin [Coumadin] 2.5 mg PO 1800 #10 tablet 09/12/16 [Rx] Warfarin [Coumadin] 5 mg PO Q72H tablet 09/12/16 [Rx] metroNIDAZOLE [Flagyl] 500 mg PO TID #21 tablet 09/12/16 [Rx] Allergies/Adverse Reactions: Allergies azithromycin Allergy (Verified 11/19/15 11:15) Rash ketoconazole Allergy (Verified 11/19/15 11:15) Rash methylprednisolone Allergy (Verified 11/19/15 11:15) Blister Penicillins Allergy (Verified 11/19/15 11:15) Rash tramadol Adverse Reaction (Verified 11/19/15 11:15) Nausea - Respiratory Orders Smoking Cessation: Smoking cessation has been advised. For more information, call the [place] Tobacco Quit Line at 0-228-SGNL-NOW. - Lab Orders Lab Orders: Other (include drug levels w/frequency) (CHECK INR EVERY 48-72H TILL THERAPEUTIC, ADJUST WITH COUMADIN DOSE) - Advance Directives Code Status: Full Code - Mobility Orders Other (PER PT) - Diet Orders Renal, Cardiac CERTIFICATION: I certify that the transfer of the above named patient to an Extended Care Facility is necessary for the continuing treatment of the diagnosis listed. The above information is true and accurate reflection of patient's current condition. Confidential - Redisclosure prohibited without a patient's written consent.
[2016-09-12] MEDS ORDERED: metroNIDAZOLE 500 MG TABLET PO ONE (15:56)
== END 2016-09-12 16:47 | DRG 480 ==
LOC: 3NENU 14:34 → EMEROO 14:34 → 3NENU 17:47
PROVIDERS: ADMIT Hospitalist; ATTEND Internal Medicine

== ENCOUNTER 2018-03-03 08:34 | Observation (INO) ==
--- NOTE | 2018-03-03 09:04 | Emergency Department Note ---
Disposition Clinical Impression: Dizziness, nonspecific, Right hip pain Fall with injury Qualifiers: Encounter type: initial encounter Qualified Code(s): W19.XXXA - Unspecified fall, initial encounter Right knee pain Qualifiers: Chronicity: acute Qualified Code(s): M25.561 - Pain in right knee Disposition: Admitted As Inpatient Condition: Fair Time of Disposition: 11:44 General Adult HPI - General Chief complaint: ED Extremity Problem,Nontraumatic Stated complaint: R hip pain, fall Time Seen by Provider: 03/03/18 08:44 Source: patient Limitations: no limitations Nursing Notes Reviewed: Yes Vital Signs Reviewed: Yes - History of Present Illness HPI Narrative: Nontoxic-appearing 82-year-old female is brought by EMS for evaluation of right hip, right knee, and right ankle pain status post fall. The patient states yesterday evening, she had just gotten out of the chair when she began to feel "dizzy". She states that she fell, landing on the right knee and rolling onto the right hip. This was a witnessed fall by the patient's son. The patient's son Denied Any Loss of Consciousness. The Patient denies any head injury. She denies any neck pain or back pain. Eyes any other prodrome such as chest pain, shortness of breath, palpitations, or visual disturbances. The patient's daughter states that the patient has been having increased frequency's of "dizzy spells" over the past 2 weeks. The patient describes this dizziness as "my head is just spinning". He states this happens when she abruptly changes positions and usually happens upon exiting the bed in the morning. Onset (ago): day(s) (Yesterday evening) Location: right, upper extremity Pain Severity: moderate Pain Scale: 10 Quality: aching Improves with: nothing Worsens with: movement, other (Palpation) Associated symptoms: Reports: other (Near syncope). Denies: chest pain, cough, diaphoresis, fever/chills, headaches, nausea/vomiting, shortness of breath Treatments Prior to Arrival: none - Related Data Home Medications Medication Instructions Recorded Confirmed Aspirin Enteric Coated [Aspirin EC] 81 mg PO DAILY 09/06/15 03/03/18 Ca/D3/Mag#11/Zinc/Harpooner/Leonardo/Bor 1 tab PO BID 09/06/15 03/03/18 [Caltrate 600+D Plus Tablet] Cholecalciferol (D-3) [Vitamin D] 2,000 unit PO DAILY 09/06/15 03/03/18 Lansoprazole [Prevacid] 30 mg PO DAILY 09/06/15 03/03/18 Levothyroxine [Synthroid] 75 mcg PO DAILY 09/06/15 03/03/18 Multivit-Min/Iron/Folic/Lutein 1 tab PO DAILY 09/06/15 03/03/18 [Centrum Silver Women Tablet] Vit C/E/Zn/Coppr/Lutein/Zeaxan 1 cap PO BID 11/19/15 03/03/18 [Preservision Areds 2 Softgel] Oxybutynin Chloride [Ditropan Xl] 10 mg PO HS 05/07/16 03/03/18 L. Acidophilus/Pectin, Daniels 1 each PO DAILY 06/04/16 03/03/18 [Acidophilus Probiotic Capsule] Furosemide [Lasix] 20 mg PO DAILY PRN 09/08/16 03/03/18 Donepezil [Aricept] 10 mg PO HS 03/03/18 03/03/18 Rivaroxaban [Xarelto] 20 mg PO DAILY 03/03/18 03/03/18 Previous Rx's Medication Instructions Recorded Metoprolol XL (24 HR) Succ [Toprol 25 mg PO DAILY tab.er.24h 09/11/15 Xl] Docusate [Colace] 100 mg PO BID capsule 09/12/16 Allergies Allergy/AdvReac Type Severity Reaction Status Date / Time azithromycin Allergy Rash Verified 12/24/16 09:53 ketoconazole Allergy Rash Verified 12/24/16 09:53 methylprednisolone Allergy Blister Verified 12/24/16 09:53 Penicillins Allergy Rash Verified 12/24/16 09:53 tramadol Allergy Nausea Verified 12/24/16 09:53 venlafaxine [From Effexor] AdvReac Depression Verified 12/24/16 09:53 All systems ED: reviewed and negative except as stated. Review of Systems: As Per HPI Constitutional: Denies: fever, chills, weakness, weight change Eyes: Denies: eye pain, eye discharge, vision change ENT ED: Denies: ear pain, throat pain, dental pain, hearing loss, epistaxis, congestion, dysphagia Cardiovascular: Reports: as per HPI, other (Near syncope). Denies: chest pain, palpitations, dyspnea on exertion, edema, syncope Respiratory: Denies: cough, dyspnea, wheezes, hemoptysis, stridor Gastrointestinal: Denies: abdominal pain, nausea, vomiting, diarrhea, constipation, hematemesis, melena, hematochezia Genitourinary: Denies: dysuria, frequency, hematuria, discharge Musculoskeletal: Reports: as per HPI, arthralgia (Right hip, right knee, right ankle pain). Denies: back pain, neck pain, myalgia Integumentary: Denies: rash, abrasion, lesions Neurological: Denies: headache, weakness, numbness, paresthesias, confusion, abnormal gait, vertigo Psychiatric: Denies: anxiety, depression, suicidal thoughts, homicidal thoughts, auditory hallucinations, visual hallucinations Endocrine: Denies: fatigue Hematological/Lymphatic: Denies: easy bleeding, easy bruising Allergic/Immunologic: Denies: facial swelling, urticaria Past Medical History - Past Medical History Attestation: Yes The following information was validated with the patient. Source: patient, obtained from family, nursing notes reviewed Medical history: Reports: aortic aneurysm, cancer, CHF, CVA, DVT, GERD, thyroid disease Surgical history: Reports: cataract, cholecystectomy, colectomy, hysterectomy Psychiatric history: Reports: no psych history FREIGHT CLAIM INVESTIGATOR history: Reports: no FREIGHT CLAIM INVESTIGATOR history - Social History Smoking Status: Never smoker Smokeless Tobacco Status: No Alcohol use: Reports: none Drug use: Reports: none Physical Exam - General Limitations: no limitations General appearance: alert - Head Head exam: atraumatic, normocephalic, normal inspection - Eye Eye exam: Present: normal appearance, PERRL, EOMI. Absent: nystagmus - Expanded Eye Exam Pupils: Bilateral: regular, round, reactive, size (3) - ENT ENT exam: mucous membranes moist - Neck Neck exam: Present: normal inspection, full ROM, trachea midline. Absent: tenderness - Chest Chest inspection: Present: normal inspection, symmetric chest wall rise - Respiratory Respiratory exam: Present: normal lung sounds bilaterally. Absent: respiratory distress, wheezes, stridor, accessory muscle use, prolonged expiratory phase - Cardiovascular Cardiovascular exam: Present: regular rate, normal rhythm, normal heart sounds - Abdominal Exam Abdominal exam: Present: soft, Non-Tender, normal bowel sounds - Expanded Lower Extremity Exam Hip/Pelvis exam: Present: tenderness (Tenderness with palpation of the right hip), shortening (Right lower extremity appears to be held in a shortened position compared to the left), pelvis stable. Absent: deformity, external rota tion, internal rotation Upper leg exam: Present: normal inspection, full ROM Knee exam: Present: tenderness (Right knee diffusely tender to palpation), swelling (Moderate soft tissue swelling noted, right knee), pain with valgus, pain with varus, knee extension intact. Absent: full ROM (Range of motion limited by pain, right knee), anterior drawer sign, posterior draw sign, laxity with valgus, laxity with varus Lower leg exam: Present: normal inspection, full ROM Ankle exam: Present: tenderness (Right ankle diffusely tender to palpation). Absent: full ROM (Range of motion limited by pain, right ankle), swelling, ecchymosis, deformity, erythema Foot/toe exam: Present: normal inspection. Absent: tenderness, calcaneal tenderness, tenderness at base of 5th metatarsal Neurovascular/Tendon exam: Present: normal capillary refill. Absent: pulse deficit, tendon deficit, extremity cold to touch Gait: not tested/not observed - Back Exam Back exam: Present: normal inspection, full ROM. Absent: tenderness, vertebral tenderness - Neurological Exam Neurological exam: Present: alert, oriented X3 - Psychiatric Psychiatric exam: Present: normal affect, normal mood - Skin Skin exam: Present: warm, dry, intact, normal color Course Course Narrative: 1140: I spoke with Dr. Tristan of the hospitalist service who has accepted the patient for admission to the hospitalist care pending head CT. I discussed this plan with Dr. Lavelle Solo. Dr Lavelle Solo he has had a [id number] evaluation with the patient and agrees with this plan. Vital Signs Temperature 97.7 F 03/03/18 08:36 Pulse Rate 78 03/03/18 08:36 Respiratory Rate 20 03/03/18 08:36 Blood Pressure 138/94 03/03/18 08:36 O2 Sat by Pulse Oximetry 94 03/03/18 08:36 Temperature 97.7 F 03/03/18 08:36 Pulse Rate 81 03/03/18 08:59 Respiratory Rate 20 03/03/18 08:59 Blood Pressure 117/57 03/03/18 08:59 O2 Sat by Pulse Oximetry 93 03/03/18 08:59 Oxygen Delivery Oxygen Delivery Room Air Medical Decision Making - Medical Records Medical records reviewed: Yes I reviewed the patient's medical records. - Lab Data Lab results reviewed: Yes I reviewed the patient's lab results. Lab results narrative: Lab Results 03/03/18 03/03/18 03/03/18 Range/Units 09:02 09:02 09:02 WBC 11.1 (4.3-11.1) K/mcL RBC 4.22 (3.82-4.97) M/mcL Hgb 13.4 (11.5-15.4) g/dL Hct 41.4 (35.3-44.9) % MCV 98.1 (83.0-100.0) fL MCH 31.8 (28.0-33.3) pg MCHC 32.4 (31.6-35.5) g/dL RDW 14.6 H (11.5-14.5) % Plt Count 211 (140-400) K/mcL MPV 10.1 (9.4-12.4) fL Immature Gran % 0.6 (0-4) % Seg Neutrophils % 76.0 % Lymphocytes % 12.9 % Monocytes % 8.7 % Eosinophils % 1.4 % Basophils % 0.4 % Neutrophils # 8.5 (1.6-8.9) K/mcL Lymphocytes # 1.4 (0.6-4.6) K/mcL Monocytes # 1.0 (0.0-1.3) K/mcL Eosinophils # 0.2 (0.0-0.6) K/mcL Basophils # 0.0 (0.0-0.2) K/mcL PT 13.9 H (9.4-12.1) Seconds INR 1.2 APTT 30.0 (26.0-36.0) Seconds Sodium 139 (136-145) mEq/L Potassium 4.4 (3.5-5.1) mEq/L Chloride 104 (98-107) mEq/L Carbon Dioxide 24 (23-29) mEq/L BUN 21 (8-23) mg/dL Creatinine 1.17 (0.60-1.20) mg/dL Est GFR ( Amer) 53 L (> 60) Est GFR (Non-Af Amer) 44 L (> 60) BUN/Creatinine Ratio 18 (6-26) Glucose 121 H (70-105) mg/dL Calculated Osmolality 292 (280-300) Calcium 9.5 (8.6-10.3) mg/dL Troponin I < 0.03 (< 0.04) ng/mL Result diagrams: 03/03/18 09:02 03/03/18 09:02 Lab Results 03/03/18 03/03/18 03/03/18 Range/Units 09:02 09:02 09:02 WBC 11.1 (4.3-11.1) K/mcL RBC 4.22 (3.82-4.97) M/mcL Hgb 13.4 (11.5-15.4) g/dL Hct 41.4 (35.3-44.9) % MCV 98.1 (83.0-100.0) fL MCH 31.8 (28.0-33.3) pg MCHC 32.4 (31.6-35.5) g/dL RDW 14.6 H (11.5-14.5) % Plt Count 211 (140-400) K/mcL MPV 10.1 (9.4-12.4) fL Immature Gran % 0.6 (0-4) % Seg Neutrophils % 76.0 % Lymphocytes % 12.9 % Monocytes % 8.7 % Eosinophils % 1.4 % Basophils % 0.4 % Neutrophils # 8.5 (1.6-8.9) K/mcL Lymphocytes # 1.4 (0.6-4.6) K/mcL Monocytes # 1.0 (0.0-1.3) K/mcL Eosinophils # 0.2 (0.0-0.6) K/mcL Basophils # 0.0 (0.0-0.2) K/mcL PT 13.9 H (9.4-12.1) Seconds INR 1.2 APTT 30.0 (26.0-36.0) Seconds Sodium 139 (136-145) mEq/L Potassium 4.4 (3.5-5.1) mEq/L Chloride 104 (98-107) mEq/L Carbon Dioxide 24 (23-29) mEq/L BUN 21 (8-23) mg/dL Creatinine 1.17 (0.60-1.20) mg/dL Est GFR ( Amer) 53 L (> 60) Est GFR (Non-Af Amer) 44 L (> 60) BUN/Creatinine Ratio 18 (6-26) Glucose 121 H (70-105) mg/dL Calculated Osmolality 292 (280-300) Calcium 9.5 (8.6-10.3) mg/dL Troponin I < 0.03 (< 0.04) ng/mL - Radiology Data Radiology results reviewed: Yes I reviewed the patient's radiology results. Ankle X-Ray 03/03/18 08:53 IMPRESSION: No acute abnormality of the right ankle. D/ / 03/03/2018 10:36:28 Brando Salgado MD / garrett Interpreting Provider: Brando Salgado MD Chest X-Ray 03/03/18 08:53 IMPRESSION: 1. Mild bibasilar atelectasis. 2. Stable mild chronic interstitial pulmonary edema. 3. Stable chronic nonspecific elevation of the right hemidiaphragm. D/ / 03/03/2018 10:37:37 Brando Salgado MD / Mary Altamirano Interpreting Provider: Brando Salgado MD Hip X-Ray 03/03/18 08:53 IMPRESSION: 1. No acute abnormality of the right hip or osseous pelvis. 2. Chronic healed fracture deformity of the proximal right femur, reduced and stabilized by a gamma nail with posttraumatic osteoarthritis evident. D/ / 03/03/2018 10:40:06 Brando Salgado MD / garrett Interpreting Provider: Brando Salgado MD Knee X-Ray 03/03/18 08:53 IMPRESSION: Small suprapatellar joint effusion at the right knee, without acute fracture or dislocation. D/ / 03/03/2018 11:38:36 Brando Salgado MD / garrett Interpreting Provider: Brando Salgado MD - EKG Data EKG #1 EKG attestation: Yes I reviewed and interpreted this EKG. EKG results narrative: X-ray shows sinus tachycardia at 111 bpm. MN interval 179, QRS duration 105, QT/QTc interval 30/517. No ectopy noted. No ST elevation. No significant changes in morphology when compared to an EKG dated from 05/16/17. Attestation Statement - Attestation Attestation: I, Homero Solo, examined this patient and my medical decision-making was reviewed with the FIELD HAULER/PA/Advanced Practice Nurse/Resident Physician. I agree with the d ocumented findings, disposition and treatment plan as described except to the extent set forth below. 82-year-old female presents emergency Department after a fall. Patient states she has been increasingly weak and fatigued over the past few weeks especially with exertion in the morning. Patient had a fall within the past 24 hours which caused pain to the right hip. Patient does have chronic pain to the right hip after previous hip fracture. Denies fever, chills, nausea, vomiting, headache. Denies hitting her head or having loss of consciousness. X-ray does not show acute fracture. Patient has difficulty with moving the right lower extremity. She will be admitted to the hospital for further evaluation of her weakness and right lower extremity pain.
[2018-03-03 09:10] LABS: Basophils % 0.4 %; Eosinophils # 0.2 K/mcL (0.0-0.6); Eosinophils % 1.4 %; Hematocrit 41.4 % (35.3-44.9); Hemoglobin 13.4 g/dL (11.5-15.4); Immature Granulocytes % 0.6 % (0-4); Lymphocytes # 1.4 K/mcL (0.6-4.6); Lymphocytes % 12.9 %; Mean Corpuscular HGB Conc 32.4 g/dL (31.6-35.5); Mean Corpuscular Hemoglobin 31.8 pg (28.0-33.3); Mean Corpuscular Volume 98.1 fL (83.0-100.0); Mean Platelet Volume 10.1 fL (9.4-12.4); Monocytes % 8.7 %; Neutrophils # 8.5 K/mcL (1.6-8.9); Platelet Count 211 K/mcL (140-400); Red Blood Count 4.22 M/mcL (3.82-4.97); Red Cell Distribution Width 14.6 % (11.5-14.5)
[2018-03-03 09:18] LABS: INR 1.2; Prothrombin Time 13.9 Seconds (9.4-12.1)
[2018-03-03 09:30] LABS: Troponin I < 0.03 ng/mL (< 0.04)
[2018-03-03 09:32] LABS: BUN/Creatinine Ratio 18 (6-26); Blood Urea Nitrogen 21 mg/dL (8-23); Calcium 9.5 mg/dL (8.6-10.3); Carbon Dioxide 24 mEq/L (23-29); Chloride 104 mEq/L (98-107); Glucose 121 mg/dL (70-105); Osmolality,Calculated 292 (280-300); Potassium 4.4 mEq/L (3.5-5.1); Sodium 139 mEq/L (136-145); eGFR For Non-African Americans 44 (> 60)
[2018-03-03] MEDS ORDERED: *HR* HYDROcodone/Acet 5/325 mg TABLET PO PRN (11:57)
[2018-03-03] MEDS ORDERED: Ondansetron 4 MG/2 ML VIAL IVP PRN (11:57)
[2018-03-03] MEDS ORDERED: Naloxone 0.4 MG/ML INJ IVP PRN (11:57)
--- NOTE | 2018-03-03 15:43 | Internal Med History&Physical ---
Date of Encounter: 03/03/18 Time of Encounter: 15:37 Internal Medicine - H&P: HPI Chief complaint: Fall/near syncope Admitted From: Emergency Dept Plans for Post Hospital Care: Home History of present illness: Ms. Mosher is a 82 year old female with a known past medical history of hypertension, hyperlipidemia, DVT on Xarelto for anticoagulation, systolic CHF, GERD, hypothyroidism patient and CVA with chronic right residual paralysis patient was brought into ER by family stating that patient had a fall last night. As per the patient yesterday evening she had just gotten out of the chair suddenly she felt dizzy and lightheadedness, fell on her right side. She did c/o Rt leg and Rt hip pain. Follow was replaced by family, denied any head trauma and seizure activity. Also denied any loss of consciousness. Her right knee x-ray showed mild joint diffusion without acute fracture or dislocation. Her right hip x-ray did not show any fracture/dislocation. Right foot x-ray did not show any fracture. Patient is alert, awake, oriented X3. Denied any CP. Talk to the patient's daughter at bedside Past Med Surg Social Fam HX - Past Medical History Medical history: aortic aneurysm, cancer, CHF, CVA, DVT, GERD, thyroid disease Additional medical history: colon cancer Psychiatric history: no psych history - Past Surgical History Surgical History: cataract, cholecystectomy, colectomy, hysterectomy Additional surgical history: EYE IMPLANTS, AAA repair, SKIN CA GRAFT. right hip nailing 2017. right hand nailing 2017 - Social History Smoking Status: Never smoker Smokeless Tobacco Status: No Alcohol use: none Drug use: none - Family History Daughter Adopted: No Family Member Ethnicity: Non- Living Status: Still Living Hx Family Cardiac Disorders: No Hx Family Respiratory Disorders: No Hx Family Cancer: No Hx Family GI Disorders: No Hx Family Endocrine Disorder: No Hx Family Neuromuscular Disorders: No Hx Family Neurologic Disorders: No Hx Family HEENT Disorders: Yes (glaucoma) Hx Family Autoimmune Disorders: No Mother Adopted: No Family Member Ethnicity: Non- Living Status: Hx Family Cancer: Yes Internal Medicine - H&P: Meds Aspirin Enteric Coated [Aspirin EC] 81 mg PO DAILY 09/06/15 [History] Ca/D3/Mag#11/Zinc/Court Usher/Leonardo/Bor [Caltrate 600+D Plus Tablet] 1 tab PO BID 09/06/15 [History] Cholecalciferol (D-3) [Vitamin D] 2,000 unit PO DAILY 09/06/15 [History] Lansoprazole [Prevacid] 30 mg PO DAILY 09/06/15 [History] Levothyroxine [Synthroid] 75 mcg PO DAILY 09/06/15 [History] Multivit-Min/Iron/Folic/Lutein [Centrum Silver Women Tablet] 1 tab PO DAILY 09/06/15 [History] Metoprolol XL (24 HR) Succ [Toprol Xl] 25 mg PO DAILY tab.er.24h 09/11/15 [Rx] Vit C/E/Zn/Coppr/Lutein/Zeaxan [Preservision Areds 2 Softgel] 1 cap PO BID 11/19/15 [History] Oxybutynin Chloride [Ditropan Xl] 10 mg PO HS 05/07/16 [History] L. Acidophilus/Pectin, Fajardo [Acidophilus Probiotic Capsule] 1 each PO DAILY 06/04/16 [History] Furosemide [Lasix] 20 mg PO DAILY PRN 09/08/16 [History] Docusate [Colace] 100 mg PO BID capsule 09/12/16 [Rx] Donepezil [Aricept] 10 mg PO HS 03/03/18 [History] Rivaroxaban [Xarelto] 20 mg PO DAILY 03/03/18 [History] Allergy/AdvReac Type Severity Reaction Status Date / Time azithromycin Allergy Rash Verified 12/24/16 09:53 ketoconazole Allergy Rash Verified 12/24/16 09:53 methylprednisolone Allergy Blister Verified 12/24/16 09:53 Penicillins Allergy Rash Verified 12/24/16 09:53 tramadol Allergy Nausea Verified 12/24/16 09:53 venlafaxine [From Effexor] AdvReac Depression Verified 12/24/16 09:53 All Systems PM: A 10-system review of systems was performed and is negative for pertinent findings except as documented above in the HPI. Review of systems: All the systems are reviewed everything is benign except the systems and symptoms I mentioned in the history of present illness - Constitutional Vitals: Temp Pulse Resp BP Pulse Ox 97.7 F 81 20 117/57 93 03/03/18 08:36 03/03/18 08:59 03/03/18 08:59 03/03/18 08:59 03/03/18 08:59 General appearance: Present: cooperative, A&O X 3, answers questions appropriately Exam: See below - Head Head exam: Present: atraumatic, normal inspection - Neck Neck exam general surgery: Present: supple - Respiratory Respiratory exam: Present: decreased breath sounds. Absent: rales, respiratory distress, rhonchi, wheezes - Cardiovascular Cardiovascular exam: Present: RRR, +S1, +S2. Absent: tachycardia - GI/Abdominal GI/Abdominal exam: Present: normal bowel sounds, soft. Absent: rebound, rigid, tenderness - Extremities Exam Extremities exam: Absent: calf tenderness, pedal edema, tenderness - Back Exam Back exam: Absent: CVA tenderness (L), CVA tenderness (R) - Neurological Exam Neurological exam: Present: alert, motor sensory deficit (Chronic right lower extremity weakness), oriented X3 - Psychiatric Psychiatric exam: Present: normal affect, normal mood - Skin Skin exam: Absent: rash Internal Med - H&P Results - Labs CBC & Chem 7: 03/03/18 09:02 03/03/18 09:02 Labs: Short CBC 03/03/18 Range/Units 09:02 WBC 11.1 (4.3-11.1) K/mcL Hgb 13.4 (11.5-15.4) g/dL Hct 41.4 (35.3-44.9) % Plt Count 211 (140-400) K/mcL Neutrophils # 8.5 (1.6-8.9) K/mcL BMP 03/03/18 09:02 Sodium 139 Potassium 4.4 Chloride 104 Carbon Dioxide 24 BUN 21 Creatinine 1.17 Glucose 121 H Calcium 9.5 Cardiac Enzymes 03/03/18 Range/Units 09:02 Troponin I < 0.03 (< 0.04) ng/mL - Impressions ITS Impressions Ankle X-Ray 03/03/18 08:53 IMPRESSION: No acute abnormalities. D/ / 03/03/2018 10:12:17 Tin Moya MD / Mary Altamirano Interpreting Provider: Tin Moya MD Ankle X-Ray 03/03/18 08:53 IMPRESSION: No acute abnormality of the right ankle. D/ / 03/03/2018 10:36:28 Brando Salgado MD / garrett Interpreting Provider: Brando Salgado MD Chest X-Ray 03/03/18 08:53 IMPRESSION: 1. Mild bibasilar atelectasis. 2. Stable mild chronic interstitial pulmonary edema. 3. Stable chronic nonspecific elevation of the right hemidiaphragm. D/ / 03/03/2018 10:37:37 Brando Salgado MD / Mary Altamirano Interpreting Provider: Brando Salgado MD Hip X-Ray 03/03/18 08:53 IMPRESSION: 1. No acute abnormality of the right hip or osseous pelvis. 2. Chronic healed fracture deformity of the proximal right femur, reduced and stabilized by a gamma nail with posttraumatic osteoarthritis evident. D/ / 03/03/2018 10:40:06 Brando Salgado MD / garrett Interpreting Provider: Brando Salgado MD Knee X-Ray 03/03/18 08:53 IMPRESSION: Small suprapatellar joint effusion at the right knee, without acute fracture or dislocation. D/ / 03/03/2018 11:38:36 Brando Salgado MD / garrett Interpreting Provider: Brando Salgado MD - Assessment and plan (1) Near syncope Current Visit: Yes Status: Acute Assessment and plan: Will place the pt into Tele for observation Pt's Syncope seems to be more like vasovagal reaction / ortho static however still need to r/o ACS vs Arrhythmia will place the pt on color television console monitor check serial troponin so far negative trop continue ASA and beta stevo will get 2 D echo and Carotid Doppler in AM Will check FLP in AM Will check ortho stat vitals Started on IV fluids (2) Fall with injury Current Visit: Yes Status: Acute Assessment and plan: Reviewed all x-rays from the ER no acute fracture noticed since patient is on anticoagulation will follow-up on the CT of the head to r/o intracranial hemorrhage Qualifiers: Encounter type: initial encounter Qualified Code(s): W19.XXXA - Unspecified fall, initial encounter (3) CVA (cerebral vascular accident) Current Visit: No Status: Acute Assessment and plan: With chronic the right residual paralysis PT/OT eval resumed home medications Qualifiers: CVA mechanism: unspecified Qualified Code(s): I63.9 - Cerebral infarction, unspecified (4) CHF (congestive heart failure) Current Visit: No Status: Chronic Assessment and plan: Reviewed Echo from 2017 showed preserved LVEF not in exacerbation now resumed all home medications Qualifiers: Qualified Code(s): I50.22 - Chronic systolic (congestive) heart failure (5) CKD (chronic kidney disease) stage 3, GFR 30-59 ml/min Current Visit: No Status: Chronic Assessment and plan: Stable creatinine at baseline (6) DVT (deep venous thrombosis) Current Visit: No Status: Chronic Assessment and plan: Resumed home medication Xarelto Qualifiers: DVT location: lower extremity Affected thrombotic vein of extremity: unspecified vein of extremity Chronicity: unspecified Laterality: unspecified laterality Qualified Code(s): I82.409 - Acute embolism and thrombosis of unspecified deep veins of unspecified lower extremity (7) Hypothyroid Current Visit: No Status: Chronic Assessment and plan: Resumed home medication Synthroid Qualifiers: Hypothyroidism type: unspecified Qualified Code(s): E03.9 - Hypothyroidism, unspecified - Time Spent With Patient Total time spent is greater than 50% in coordination of care (as documented) at patient's floor/unit and/or counseling patient:
[2018-03-03] MEDS: 0.9 % Sodium Chloride 1,000 ML IVC SCH (17:15)
--- NOTE | 2018-03-03 19:05 | Electrocardiograph Report ---
[facility] Test Date: 2018-03-03 Pat Name: Janeen Mosher Department: [id number] Room: 3B31 Gender: F [employer] Attendant: : 1935 Requested By: Marco Bautista Order Number: [id number] Reading MD: Leora Carrillo Measurements Intervals [place] Rate: 111 P: 228 MT: 179 QRS: 5 QRSD: 105 T: 48 QT: 380 QTc: 517 Interpretive Statements Sinus or ectopic atrial tachycardia Anterior infarct, old Prolonged QT interval Electronically Signed On 03-03-2018 19:03:14 EST by Leora Carrillo
[2018-03-03] MEDS ORDERED: NON-FORMULARY MEDICATION 1 EACH EACH (Vit C/E/Zn/Coppr/Lutein/Zeaxan [Preservision Areds 2 PO SCH (21:00)
[2018-03-03] MEDS: Acetaminophen 325 MG TABLET PO PRN (21:11)
[2018-03-03] MEDS: (Ca/D3/Mag#11/Zinc/Cop/Mang/Bor [Caltrate 600+D Plus PO SCH (21:16)
[2018-03-04] MEDS: 0.9 % Sodium Chloride 1,000 ML IVC SCH (03:07)
[2018-03-04 04:40] LABS: Basophils % 0.4 %; Eosinophils # 0.4 K/mcL (0.0-0.6); Eosinophils % 4.4 %; Hematocrit 37.5 % (35.3-44.9); Hemoglobin 11.9 g/dL (11.5-15.4); Immature Granulocytes % 0.4 % (0-4); Lymphocytes # 2.5 K/mcL (0.6-4.6); Lymphocytes % 24.8 %; Mean Corpuscular HGB Conc 31.7 g/dL (31.6-35.5); Mean Corpuscular Hemoglobin 31.5 pg (28.0-33.3); Mean Corpuscular Volume 99.2 fL (83.0-100.0); Mean Platelet Volume 10.6 fL (9.4-12.4); Monocytes % 10.3 %; Neutrophils # 5.9 K/mcL (1.6-8.9); Platelet Count 179 K/mcL (140-400); Red Blood Count 3.78 M/mcL (3.82-4.97); Red Cell Distribution Width 14.8 % (11.5-14.5); Segmented Neutrophils % 59.7 %
[2018-03-04 04:54] LABS: BUN/Creatinine Ratio 19 (6-26); Blood Urea Nitrogen 19 mg/dL (8-23); Calcium 8.7 mg/dL (8.6-10.3); Carbon Dioxide 26 mEq/L (23-29); Chloride 107 mEq/L (98-107); Chol/HDL Ratio 4.7 (0-4.9); Cholesterol 168 mg/dL (< 200); Glucose 105 mg/dL (70-105); HDL Cholesterol 36 mg/dL (40-59); LDL Cholesterol,Calculated 91 mg/dL (0-99); Osmolality,Calculated 295 (280-300); Potassium 3.9 mEq/L (3.5-5.1); Sodium 141 mEq/L (136-145); Triglycerides 203 mg/dL (< 150); eGFR For Non-African Americans 52 (> 60)
[2018-03-04] MEDS: Cholecalciferol (D-3) 1,000 UNIT TABLET PO SCH (08:45)
[2018-03-04] MEDS: Acetaminophen 325 MG TABLET PO PRN (08:45)
[2018-03-04] MEDS: Aspirin Enteric Coated 81 MG Tablet PO SCH (08:45)
[2018-03-04] MEDS: Lactobacillus 1 EACH CAP.SPRINK PO SCH (08:45)
[2018-03-04] MEDS: Metoprolol XL (24 HR) Succ 25 MG TAB.ER.24H PO SCH (08:45)
[2018-03-04] MEDS: (Ca/D3/Mag#11/Zinc/Cop/Mang/Bor [Caltrate 600+D Plus PO SCH ×2 (08:46→21:40)
[2018-03-04] MEDS: Multivit/Ca/Min/Fe/FA 1 TAB TABLET PO SCH (08:46)
--- NOTE | 2018-03-04 13:19 | Internal Med Progress Note ---
Hospitalist Progress Note - Encounter Date of Encounter: 03/04/18 Time of Encounter: 13:08 - Subjective Interval History: Patient was seen and examined at bedside nursing had reported patient was more confused today. She is very sleepy oriented to name only family member son at bedside question whether this is her baseline he was unsure states sister's caregiver and should be back shortly. We will obtain CT of head stat to rule out any possible bleed - Exam Vitals: Temp Pulse Resp BP Pulse Ox 98.0 F 65 16 125/78 91 03/04/18 11:25 03/04/18 11:25 03/04/18 11:25 03/04/18 11:25 03/04/18 11:25 Exam: General appearance: Sleepy oriented to name only-cooperative pleasant Exam: - Head Head exam: Present: atraumatic, normal inspection - Neck Neck exam general surgery: Present: supple - Respiratory Respiratory exam: Present: decreased breath sounds. Absent: rales, respiratory distress, rhonchi, wheezes - Cardiovascular Cardiovascular exam: Present: RRR, +S1, +S2. Absent: tachycardia - GI/Abdominal GI/Abdominal exam: Present: normal bowel sounds, soft. Absent: rebound, rigid, tenderness - Extremities Exam Extremities exam: Absent: calf tenderness, pedal edema, tenderness - Back Exam Back exam: Absent: CVA tenderness (L), CVA tenderness (R) - Neurological Exam Neurological exam: Present: Sleepy, motor sensory deficit (Chronic right lower extremity weakness), oriented X1-follow simple commands - Psychiatric Psychiatric exam: Present: normal affect, normal mood - Skin Skin exam: Absent: rash - Assessment and Plan (1) Near syncope Current Visit: Yes Status: Acute Assessment and Plan: Will place the pt into Tele for observation Pt's Syncope seems to be more like vasovagal reaction / ortho static however still need to r/o ACS vs Arrhythmia 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 check serial troponin so far negative trop continue ASA and beta stevo will get 2 D echo and Carotid Doppler in AM Will check FLP in AM Will check ortho stat vitals Started on IV fluids 03/04 Suspect syncopal episode related to vasovagal or orthostatic-family reports that patient was getting up to go to about an pass out on way Reviewed telemetry do not see any arrhythmias overnight- Awaiting results of echo-carotid Doppler preliminary nonstenotic plaque bilaterally No orthostatics are documented we will check orthostatic vital signs (2) Fall with injury Current Visit: Yes Status: Acute Assessment and Plan: Reviewed all x-rays from the ER no acute fracture noticed since patient is on anticoagulation will follow-up on the CT of the head to r/o intracranial hemorrhage 03/04 Today patient is confused and very sleepy concern for possible head bleed since patient is on Xarelto and had a recent fall. We will repeat CT of head We will order sitter at night-family reports that patient does become confused at times at night at home Fall precautions PT OT evaluation recommending SNIF placement (3) CVA (cerebral vascular accident) Current Visit: No Status: Acute Assessment and Plan: With chronic the right residual paralysis PT/OT eval resumed home medications 03/04 Chronic right residual paralysis PT OT evaluation Continue with home medications (4) Hypothyroid Current Visit: No Status: Chronic Assessment and Plan: Resumed home medication Synthroid 03/04 Continue with Synthroid (5) CKD (chronic kidney disease) stage 3, GFR 30-59 ml/min Current Visit: No Status: Chronic Assessment and Plan: Stable creatinine at baseline 03/04 Creatinine is stable Monitor intake and output daily weights Avoid nephrotoxins (6) DVT (deep venous thrombosis) Current Visit: No Status: Chronic Assessment and Plan: Continue home medication Xarelto (7) CHF (congestive heart failure) Current Visit: No Status: Chronic Assessment and Plan: Reviewed Echo from 2017 showed preserved LVEF not in exacerbation now resumed all home medications 03/04 Echo 2017 showed preserved LVEF awaiting results of current echo Does not appear to be in exacerbation at this time We will continue home medications Monitor intake and output daily weights - Time Spent with Patient Total time spent is greater than 50% in coordination of care (as documented) at patient's floor/unit and/or counseling patient: Internal Medicine: Result - Labs CBC & Chem 7: 03/04/18 03:27 03/04/18 03:27 Labs: Short CBC 03/04/18 Range/Units 03:27 WBC 9.9 (4.3-11.1) K/mcL Hgb 11.9 D (11.5-15.4) g/dL Hct 37.5 (35.3-44.9) % Plt Count 179 (140-400) K/mcL Neutrophils # 5.9 (1.6-8.9) K/mcL BMP 11/10/18 03:27 Sodium 141 Potassium 3.9 Chloride 107 Carbon Dioxide 26 BUN 19 Creatinine 1.01 Glucose 105 Calcium 8.7 Cardiac Enzymes 03/03/18 03/03/18 Range/Units 16:45 22:29 Troponin I < 0.03 < 0.03 (< 0.04) ng/mL - ABG Interpretation ABG results: PT/INR, D-dimer PT 13.9 Seconds (9.4-12.1) H 03/03/18 09:02 - Impressions Impressions Ankle X-Ray 03/03/18 08:53 IMPRESSION: No acute abnormality of the right ankle. D/ / 03/03/2018 10:36:28 Bradno Salgado MD / garrett Interpreting Provider: Brando Salgado MD Chest X-Ray 03/03/18 08:53 IMPRESSION: 1. Mild bibasilar atelectasis. 2. Stable mild chronic interstitial pulmonary edema. 3. Stable chronic nonspecific elevation of the right hemidiaphragm. D/ / 03/03/2018 10:37:37 Brando Salgado MD / Mary Altamirano Interpreting Provider: Brando Salgado MD Hip X-Ray 03/03/18 08:53 IMPRESSION: 1. No acute abnormality of the right hip or osseous pelvis. 2. Chronic healed fracture deformity of the proximal right femur, reduced and stabilized by a gamma nail with posttraumatic osteoarthritis evident. D/ / 03/03/2018 10:40:06 Brando Salgado MD / garrett Interpreting Provider: Brando Salgado MD Knee X-Ray 03/03/18 08:53 IMPRESSION: Small suprapatellar joint effusion at the right knee, without acute fracture or dislocation. D/ / 03/03/2018 11:38:36 Brando Salgado MD / earnold Interpreting Provider: Brando Salgado MD Head CT 03/03/18 11:39 IMPRESSION: No acute intracranial abnormality. Diffuse atrophic changes with findings suggesting chronic microvascular ischemia and an old right cerebellar infarct D/ / Manoj Burgess MD / Manoj Burgess MD Interpreting Provider: Manoj Burgess MD Consult Discharge Plan - Plan Referrals: Zuleika Avila CNP [Primary Care Provider] - (2) Fall with injury Qualifiers: Encounter type: initial encounter Qualified Code(s): W19.XXXA - Unspecified fall, initial encounter (3) CVA (cerebral vascular accident) Qualifiers: CVA mechanism: unspecified Qualified Code(s): I63.9 - Cerebral infarction, unspecified (4) Hypothyroid Qualifiers: Hypothyroidism type: unspecified Qualified Code(s): E03.9 - Hypothyroidism, unspecified (6) DVT (deep venous thrombosis) Qualifiers: DVT location: lower extremity Affected thrombotic vein of extremity: unspecified vein of extremity Chronicity: unspecified Laterality: unspecified laterality Qualified Code(s): I82.409 - Acute embolism and thrombosis of unspecified deep veins of unspecified lower extremity (7) CHF (congestive heart failure) Qualifiers: Qualified Code(s): I50.22 - Chronic systolic (congestive) heart failure
[2018-03-04] MEDS: *HR* Rivaroxaban 10 MG TABLET PO SCH (17:25)
[2018-03-05 02:50] LABS: Basophils # 0.1 K/mcL (0.0-0.2); Basophils % 0.6 %; Eosinophils # 0.7 K/mcL (0.0-0.6); Hematocrit 36.2 % (35.3-44.9); Hemoglobin 11.4 g/dL (11.5-15.4); Immature Granulocytes % 0.6 % (0-4); Lymphocytes # 2.5 K/mcL (0.6-4.6); Lymphocytes % 26.1 %; Mean Corpuscular HGB Conc 31.5 g/dL (31.6-35.5); Mean Corpuscular Hemoglobin 31.6 pg (28.0-33.3); Mean Corpuscular Volume 100.3 fL (83.0-100.0); Mean Platelet Volume 10.3 fL (9.4-12.4); Monocytes # 0.9 K/mcL (0.0-1.3); Monocytes % 9.4 %; Neutrophils # 5.4 K/mcL (1.6-8.9); Platelet Count 182 K/mcL (140-400); Red Blood Count 3.61 M/mcL (3.82-4.97); Red Cell Distribution Width 14.8 % (11.5-14.5); Segmented Neutrophils % 56.3 %
[2018-03-05 03:00] LABS: BUN/Creatinine Ratio 21 (6-26); Blood Urea Nitrogen 21 mg/dL (8-23); Carbon Dioxide 26 mEq/L (23-29); Chloride 107 mEq/L (98-107); Glucose 112 mg/dL (70-105); Osmolality,Calculated 292 (280-300); Potassium 4.1 mEq/L (3.5-5.1); Sodium 139 mEq/L (136-145); eGFR For Non-African Americans 54 (> 60)
[2018-03-05] MEDS: Multivit/Ca/Min/Fe/FA 1 TAB TABLET PO SCH (08:10)
[2018-03-05] MEDS: Metoprolol XL (24 HR) Succ 25 MG TAB.ER.24H PO SCH (08:10)
[2018-03-05] MEDS: Lactobacillus 1 EACH CAP.SPRINK PO SCH (08:10)
[2018-03-05] MEDS: Cholecalciferol (D-3) 1,000 UNIT TABLET PO SCH (08:10)
[2018-03-05] MEDS: Aspirin Enteric Coated 81 MG Tablet PO SCH (08:10)
[2018-03-05] MEDS: (Ca/D3/Mag#11/Zinc/Cop/Mang/Bor [Caltrate 600+D Plus PO SCH ×2 (08:12→20:06)
--- NOTE | 2018-03-05 13:01 | Internal Med Progress Note ---
Hospitalist Progress Note - Encounter Date of Encounter: 03/05/18 Time of Encounter: 12:40 - Subjective Interval History: MS. Mosher is an 82 yo female whom was admitted after sustaining a fall in her home, while attempting to ambulate to the bathroom. Daughter at bedside today, and states patient was asleep in her recliner, when she awoke and was going on her way to bathroom when she became dizzy and fell with her walker, landing on the rigth knee and hip. Daughter reports previous hx of dizziness several years ago, and was placed on medication by PCP which resolved the symptom after several months. Patient lives with family members in their home, and is cared for on a 24 hour bases 7 days per week . Past medical history is significant for hypoxia, , Non -stem, Respiratory failure, CKD, Systolic CHF, Afib, CVA , Coumadin therapy, Acute and chronic encephalopathy, right hand and hip fracture from previous falls. Acute Delirium with change of environment and routine . Today patient is interviewed at bedside, alert, awake, oriented x 4. Reports that she did not sleep well last night and is having difficult time staying awake. Continues with right knee pain, and hip pain. Also cc of non-healing decubiti on the right medial mallelous for several months. States she would be willing to go into rehab at [facility] for a few weeks to increase her mobility, and complete PT. Will consult social scientist for consult for rehab PT referral. Daughter states she would preferr, [facility] if possible. CT of head is reviewed and negative for acute intracranial abnormality with no significant changes in appearnace whenn compared to 05/16/17. Echo: Impressions: LVEF 50-55%. Atypical septal motion. Mild left ventricular diastolic dysfunction. Normal right ventricular structure and function. Mild mitral regurgitation. Sclerotic aortic valve leaflets. Mild tricuspid regurgitation. Mild pulmonic regurgitation. Mild pulmonary hypertension. Carotid Doppler : Findings: Bilateral carotid system has nonstenotic plaque. Right knee x-ray negative for acute fracture or dislocation, with small joint effusion Right hip x-ray negative for acute fracture or dislocation Results were discussed with patient and daughter and all questions were answered to their satisfaction. Will continue with current medications, and treatment regimen until senior care care placement for short term PT can be obtained - Exam Vitals: Temp Pulse Resp BP Pulse Ox 98.9 F 67 16 137/78 96 03/05/18 12:09 03/05/18 12:09 03/05/18 12:09 03/05/18 12:09 03/05/18 12:09 Exam: stable - Assessment and Plan (1) Hypothyroid Current Visit: No Status: Chronic Assessment and Plan: will continue with hormone replacement therapy (2) CKD (chronic kidney disease) stage 3, GFR 30-59 ml/min Current Visit: No Status: Chronic Assessment and Plan: stable with GFR 54, creat 0.98 Will cont to monitor will cont with vitamin D supp (3) DVT (deep venous thrombosis) Current Visit: No Status: Chronic Assessment and Plan: will continue with xarelto (4) CHF (congestive heart failure) Current Visit: No Status: Chronic Assessment and Plan: continue with telemetry, and oxygen (5) CVA (cerebral vascular accident) Current Visit: No Status: Chronic Assessment and Plan: With chronic the right residual paralysis PT/OT eval resumed home medications 03/04 Chronic right residual paralysis PT OT evaluation Continue with home medications (6) Fall with injury Current Visit: Yes Status: Acute Assessment and Plan: negative right hip and right knee fracture will continue wtih pain management will continue with fall precautions (7) Near syncope Current Visit: Yes Status: Acute Assessment and Plan: will assist with ADL's continue with slow movement from lying to sitting , to standing, DVT Prophylaxis: per protocol - Time Spent with Patient Total time spent is greater than 50% in coordination of care (as documented) at patient's floor/unit and/or counseling patient: less than 15 minutes Plan of Care Discussed with: patient Internal Medicine: Result - Labs CBC & Chem 7: 03/05/18 02:23 03/05/18 02:23 Labs: Short CBC 03/05/18 Range/Units 02:23 WBC 9.6 (4.3-11.1) K/mcL Hgb 11.4 L (11.5-15.4) g/dL Hct 36.2 (35.3-44.9) % Plt Count 182 (140-400) K/mcL Neutrophils # 5.4 (1.6-8.9) K/mcL BMP 03/05/18 02:23 Sodium 139 Potassium 4.1 Chloride 107 Carbon Dioxide 26 BUN 21 Creatinine 0.98 Glucose 112 H Calcium 9.0 - ABG Interpretation ABG results: PT/INR, D-dimer PT 13.9 Seconds (9.4-12.1) H 03/03/18 09:02 - Impressions Impressions Echocardiogram 03/04/18 10:43 Impressions: LVEF 50-55%. Atypical septal motion. Mild left ventricular diastolic dysfunction. Normal right ventricular structure and function. Mild mitral regurgitation. Sclerotic aortic valve leaflets. Mild tricuspid regurgitation. Mild pulmonic regurgitation. Mild pulmonary hypertension. Left Ventricular Wall Motion: Rest Echo Findings The mid inferior lateral and basal inferior lateral vu were not visualized. All other wall segments showed normal motion. Findings: Study Quality * Technically adequate exam. ECG Findings * Normal sinus rhythm. Left Ventricle * LVEF 50-55%. * Atypical septal motion. * Mild left ventricular diastolic dysfunction. * No LVOTO. Right Ventricle * Normal right ventricular structure and function. Left Atrium * Mild-moderately dilated left atrium. Right Atrium * Normal right atrial size. Mitral Valve * Normal mitral valve structure. * No mitral stenosis. * Mild mitral annular calcification * Mild mitral regurgitation. Aortic Valve * No aortic regurgitation. * Trileaflet aortic valve. * Sclerotic aortic valve leaflets. * No aortic stenosis. Tricuspid Valve * Tricuspid valve not well visualized. * Mild tricuspid regurgitation. Pulmonic Valve * Pulmonic valve is not well visualized. * No pulmonic stenosis. * Mild pulmonic regurgitation. Pulmonary Artery * Pulmonary artery not well visualized. Aorta * Normally sized aortic root. * Proximal ascending thoracic aorta not well visualized. Pericardium * There is no pericardial effusion present. Interatrial Septum * Interatrial septum not well evaluated. IVC * The IVC is not well evaluated. Head CT 03/04/18 13:15 IMPRESSION: No evidence of acute intracranial abnormality with no significant change in appearance of the head CT when compared to the study of 03/03/2018 as described above. D/ / 03/04/2018 14:36:12 Alverto Noland MD / jeanie stone Interpreting Provider: Alverto Noland MD Consult Discharge Plan - Plan Referrals: Zuleika Avila, ARCHIVAL RECORDS CLERK [Primary Care Provider] - (1) Hypothyroid Qualifiers: Hypothyroidism type: unspecified Qualified Code(s): E03.9 - Hypothyroidism, unspecified (3) DVT (deep venous thrombosis) Qualifiers: DVT location: lower extremity Affected thrombotic vein of extremity: unspecified vein of extremity Chronicity: unspecified Laterality: unspecified laterality Qualified Code(s): I82.409 - Acute embolism and thrombosis of unspecified deep veins of unspecified lower extremity (4) CHF (congestive heart failure) Qualifiers: Qualified Code(s): I50.22 - Chronic systolic (congestive) heart failure (5) CVA (cerebral vascular accident) Qualifiers: CVA mechanism: unspecified Qualified Code(s): I63.9 - Cerebral infarction, u nspecified (6) Fall with injury Qualifiers: Encounter type: initial encounter Qualified Code(s): W19.XXXA - Unspecified fall, initial encounter
[2018-03-05] MEDS: *HR* Rivaroxaban 10 MG TABLET PO SCH (17:45)
[2018-03-05] MEDS: Acetaminophen 325 MG TABLET PO PRN (22:57)
[2018-03-06 04:42] LABS: Basophils # 0.1 K/mcL (0.0-0.2); Basophils % 0.7 %; Eosinophils # 0.6 K/mcL (0.0-0.6); Eosinophils % 7.4 %; Hematocrit 38.1 % (35.3-44.9); Hemoglobin 11.6 g/dL (11.5-15.4); Immature Granulocytes % 0.6 % (0-4); Lymphocytes # 2.5 K/mcL (0.6-4.6); Lymphocytes % 28.7 %; Mean Corpuscular HGB Conc 30.4 g/dL (31.6-35.5); Mean Corpuscular Hemoglobin 31.2 pg (28.0-33.3); Mean Corpuscular Volume 102.4 fL (83.0-100.0); Mean Platelet Volume 11.2 fL (9.4-12.4); Monocytes # 0.7 K/mcL (0.0-1.3); Neutrophils # 4.7 K/mcL (1.6-8.9); Platelet Count 160 K/mcL (140-400); Red Blood Count 3.72 M/mcL (3.82-4.97); Red Cell Distribution Width 14.6 % (11.5-14.5); Segmented Neutrophils % 54.6 %
[2018-03-06 04:58] LABS: BUN/Creatinine Ratio 22 (6-26); Blood Urea Nitrogen 22 mg/dL (8-23); Calcium 9.5 mg/dL (8.6-10.3); Carbon Dioxide 24 mEq/L (23-29); Chloride 105 mEq/L (98-107); Glucose 98 mg/dL (70-105); Osmolality,Calculated 291 (280-300); Potassium 4.3 mEq/L (3.5-5.1); Sodium 139 mEq/L (136-145); eGFR For Non-African Americans 53 (> 60)
[2018-03-06] MEDS: Lactobacillus 1 EACH CAP.SPRINK PO SCH (07:54)
[2018-03-06] MEDS: (Ca/D3/Mag#11/Zinc/Cop/Mang/Bor [Caltrate 600+D Plus PO SCH (07:54)
[2018-03-06] MEDS: Metoprolol XL (24 HR) Succ 25 MG TAB.ER.24H PO SCH (07:54)
[2018-03-06] MEDS: Multivit/Ca/Min/Fe/FA 1 TAB TABLET PO SCH (07:54)
[2018-03-06] MEDS: Aspirin Enteric Coated 81 MG Tablet PO SCH (07:54)
[2018-03-06] MEDS: Cholecalciferol (D-3) 1,000 UNIT TABLET PO SCH (07:54)
[2018-03-06] MEDS: Artificial Tears SOLN 15 ML BOTTLE BOTH EYES SCH ×3 (11:38→21:06)
[2018-03-06 16:16] LABS: Bilirubin,Urine Negative (Negative); Blood,Urine Negative (Negative); Clarity,Urine Cloudy (Clear); Color,Urine Yellow (Yellow); Glucose,Urine (UA) Normal (Normal); Ketones,Urine Negative (Negative); Leukocyte Esterase,Urine Moderate (Negative); Nitrite,Urine Positive (Negative); PH,Urine 5.5 pH Units (5.0-8.0); Protein,Urine Negative (Neg-Trace); Specific Gravity,Urine 1.016 (1.010-1.025); Urobilinogen,Urine Normal (Normal)
[2018-03-06 16:17] LABS: Bacteria,Urine Many per hpf (None-Few); Hyaline Casts,Urine None Seen per lpf (None-Few); RBC,Urine 0-3 per hpf (0-3); Squamous Epithelial Cell,Urine Many per lpf (None-Few); WBC,Urine 30-50 per hpf (0-3)
--- NOTE | 2018-03-06 16:24 | Internal Med Progress Note ---
Hospitalist Progress Note - Encounter Date of Encounter: 03/06/18 Time of Encounter: 09:00 - Subjective Interval History: Patient was seen and examined at bedside, she is alert and oriented 2 following simple commands. There is reports that at times patient is confused. PT and OT are recommending sniffy ECF placement patient has been approved to go to [facility] - Exam Vitals: Temp Pulse Resp BP Pulse Ox 98.8 F 69 16 134/73 90 03/06/18 15:32 03/06/18 16:06 03/06/18 15:32 03/06/18 16:06 03/06/18 15:32 Exam: General appearance: Alert and oriented 2 pleasant and cooperative Exam: - Head Head exam: Present: atraumatic, normal inspection - Neck Neck exam general surgery: Present: supple - Respiratory Respiratory exam: Present: decreased breath sounds. Absent: rales, respiratory distress, rhonchi, wheezes - Cardiovascular Cardiovascular exam: Present: RRR, +S1, +S2. Absent: tachycardia - GI/Abdominal GI/Abdominal exam: Present: normal bowel sounds, soft. Absent: rebound, rigid, tenderness - Extremities Exam Extremities exam: Absent: calf tenderness, pedal edema, tenderness - Back Exam Back exam: Absent: CVA tenderness (L), CVA tenderness (R) - Neurological Exam Neurological exam: Present: Sleepy, motor sensory deficit (Chronic right lower extremity weakness), oriented X1-follow simple commands - Psychiatric Psychiatric exam: Present: normal affect, normal mood - Skin Skin exam: Absent: rash - Assessment and Plan (1) Near syncope Current Visit: Yes Status: Acute Assessment and Plan: will assist with ADL's continue with slow movement from lying to sitting , to standing, Carotid duplex with nonstenotic plaque We will obtain orthostatic vital signs Review of telemetry overnight does show some bradycardia 38-40 we will obtain EKG Currently she is in the 60s to 70s she is on metoprolol 25 mg daily I will hold this for now Consult cardiology cont cardiac monitoring TTE LVEF 50-55%. Atypical septal motion. Mild left ventricular diastolic dysfunction. Normal right ventricular structure and function. Mild mitral regurgitation. Sclerotic aortic valve leaflets. Mild tricuspid regurgitation. Mild pulmonic regurgitation. Mild pulmonary hypertension. (2) Fall with injury Current Visit: Yes Status: Acute Assessment and Plan: negative right hip and right knee fracture will continue wt pain management will continue with fall precautions 03/06 PT OT patient will be discharged to [facility] (3) CVA (cerebral vascular accident) Current Visit: No Status: Chronic Assessment and Plan: With chronic the right residual paralysis PT/OT eval resumed home medications 03/04 Chronic right residual paralysis PT OT evaluation Continue with home medications 03/06 Chronic right residual paralysis She will be discharged to [facility] (4) Hypothyroid Current Visit: No Status: Chronic Assessment and Plan: will continue with hormone replacement therapy (5) CKD (chronic kidney disease) stage 3, GFR 30-59 ml/min Current Visit: No Status: Chronic Assessment and Plan: stable Will cont to monitor Avoid nephrotoxins Monitor intake and output (6) DVT (deep venous thrombosis) Current Visit: No Status: Chronic Assessment and Plan: will continue with xarelto (7) CHF (congestive heart failure) Current Visit: No Status: Chronic Assessment and Plan: continue with telemetry, and oxygen TTE LVEF 50-55%. Atypical septal motion. Mild left ventricular diastolic dysfunction. Normal right ventricular structure and function. Mild mitral regurgitation. Sclerotic aortic valve leaflets. Mild tricuspid regurgitation. Mild pulmonic regurgitation. Mild pulmonary hypertension. Monitor intake output Low-sodium diet - Time Spent with Patient Total time spent is greater than 50% in coordination of care (as documented) at patient's floor/unit and/or counseling patient: Internal Medicine: Result - Labs CBC & Chem 7: 03/06/18 03:49 03/06/18 03:49 Labs: Short CBC 03/06/18 Range/Units 03:49 WBC 8.6 (4.3-11.1) K/mcL Hgb 11.6 (11.5-15.4) g/dL Hct 38.1 (35.3-44.9) % Plt Count 160 (140-400) K/mcL Neutrophils # 4.7 (1.6-8.9) K/mcL BMP 03/06/18 03:49 Sodium 139 Potassium 4.3 Chloride 105 Carbon Dioxide 24 BUN 22 Creatinine 0.99 Glucose 98 Calcium 9.5 - ABG Interpretation ABG results: PT/INR, D-dimer PT 13.9 Seconds (9.4-12.1) H 03/03/18 09:02 - Impressions Impressions Head CT 03/04/18 13:15 IMPRESSION: No evidence of acute intracranial abnormality with no significant change in appearance of the head CT when compared to the study of 03/03/2018 as described above. D/ / 03/04/2018 14:36:12 Alverto Noland MD / [email or web address] Interpreting Provider: Alverto Noland MD Consult Discharge Plan - Plan Referrals: Zuleika Avila, HOTEL NIGHT AUDITOR [Primary Care Provider] - __ (2) Fall with injury Qualifiers: Encounter type: initial encounter Qualified Code(s): W19.XXXA - Unspecified fall, initial encounter (3) CVA (cerebral vascular accident) Qualifiers: CVA mechanism: unspecified Qualified Code(s): I63.9 - Cerebral infarction, unspecified (4) Hypothyroid Qualifiers: Hypothyroidism type: unspecified Qualified Code(s): E03.9 - Hypothyroidism, unspecified (6) DVT (deep venous thrombosis) Qualifiers: DVT location: lower extremity Affected thrombotic vein of extremity: unspecified vein of extremity Chronicity: unspecified Laterality: unspecified laterality Qualified Code(s): I82.409 - Acute embolism and thrombosis of unspecified deep veins of unspecified lower extremity (7) CHF (congestive heart failure) Qualifiers: Qualified Code(s): I50.22 - Chronic systolic (congestive) heart failure
[2018-03-06] MEDS: *HR* Rivaroxaban 10 MG TABLET PO SCH (16:31)
[2018-03-06] MEDS: Acetaminophen 325 MG TABLET PO PRN (17:32)
[2018-03-07 05:36] LABS: Basophils # 0.1 K/mcL (0.0-0.2); Basophils % 0.7 %; Eosinophils # 0.7 K/mcL (0.0-0.6); Eosinophils % 8.1 %; Hematocrit 39.4 % (35.3-44.9); Immature Granulocytes % 0.8 % (0-4); Lymphocytes # 2.4 K/mcL (0.6-4.6); Lymphocytes % 26.3 %; Mean Corpuscular HGB Conc 30.5 g/dL (31.6-35.5); Mean Corpuscular Volume 101.8 fL (83.0-100.0); Mean Platelet Volume 10.3 fL (9.4-12.4); Monocytes # 0.8 K/mcL (0.0-1.3); Monocytes % 8.6 %; Platelet Count 208 K/mcL (140-400); Red Blood Count 3.87 M/mcL (3.82-4.97); Red Cell Distribution Width 14.6 % (11.5-14.5); Segmented Neutrophils % 55.5 %
[2018-03-07 06:39] LABS: BUN/Creatinine Ratio 24 (6-26); Blood Urea Nitrogen 22 mg/dL (8-23); Calcium 9.5 mg/dL (8.6-10.3); Carbon Dioxide 24 mEq/L (23-29); Chloride 107 mEq/L (98-107); Glucose 98 mg/dL (70-105); Osmolality,Calculated 299 (280-300); Potassium 4.4 mEq/L (3.5-5.1); Sodium 143 mEq/L (136-145); eGFR For Non-African Americans 57 (> 60)
[2018-03-07 06:47] VITALS: BP 127/72
[2018-03-07] MEDS: Aspirin Enteric Coated 81 MG Tablet PO SCH (09:06)
[2018-03-07] MEDS: Lactobacillus 1 EACH CAP.SPRINK PO SCH (09:06)
[2018-03-07] MEDS: Multivit/Ca/Min/Fe/FA 1 TAB TABLET PO SCH (09:06)
[2018-03-07] MEDS: Cholecalciferol (D-3) 1,000 UNIT TABLET PO SCH (09:06)
[2018-03-07] MEDS: Artificial Tears SOLN 15 ML BOTTLE BOTH EYES SCH (09:06)
[2018-03-07] MEDS: Acetaminophen 325 MG TABLET PO PRN (09:08)
--- NOTE | 2018-03-07 10:35 | Discharge Summary ---
- NOTES TO OUTPATIENT PROVIDER Notes to Outpatient Provider: Follow up with PCP in one week Orders not resulted at time of discharge: Pending orders 03/04/18 13:49 EKG [ECG 12 lead ECG] [ECG] Routine Date of Encounter: 03/07/18 Time of Encounter: 10:31 - Discharge Diagnosis (1) Near syncope Priority: Primary Status: Acute (2) Fall with injury Priority: Primary Status: Acute Qualifiers: Encounter type: initial encounter Qualified Code(s): W19.XXXA - Unspecified fall, initial encounter (3) Hypothyroid Priority: Secondary Status: Chronic Qualifiers: Hypothyroidism type: unspecified Qualified Code(s): E03.9 - Hypothyroidism, unspecified (4) CKD (chronic kidney disease) stage 3, GFR 30-59 ml/min Priority: Secondary Status: Chronic (5) DVT (deep venous thrombosis) Priority: Secondary Status: Chronic Qualifiers: DVT location: lower extremity Affected thrombotic vein of extremity: unspecified vein of extremity Chronicity: unspecified Laterality: unspecified laterality Qualified Code(s): I82.409 - Acute embolism and thrombosis of unspecified deep veins of unspecified lower extremity (6) CHF (congestive heart failure) Priority: Secondary Status: Chronic Qualifiers: Qualified Code(s): I50.22 - Chronic systolic (congestive) heart failure (7) CVA (cerebral vascular accident) Priority: Secondary Status: Chronic Qualifiers: CVA mechanism: unspecified Qualified Code(s): I63.9 - Cerebral infarction, unspecified Hospital course: Ms. Mosher is a 82 year old female with a known past medical history of hypertension, hyperlipidemia, DVT on Xarelto for anticoagulation, systolic CHF, GERD, hypothyroidism patient and CVA with chronic right residual paralysis patient was brought into ER by family stating that patient had a fall last night. As per the patient yesterday evening she had just gotten out of the chair suddenly she felt dizzy and lightheadedness, fell on her right side. She did c/o Rt leg and Rt hip pain. Fall was witnessed by family, denied any head trauma and seizure activity. Also denied any loss of consciousness. Her right knee x-ray showed mild joint diffusion without acute fracture or dislocation. Her right hip x-ray did not show any fracture/dislocation. Right foot x-ray did not show any fracture. Patient was admitted in the hospital and placed on laboratory monitor. Her CT of the head did not show any intracranial hemorrhage. All x-rays came back is negative for any fracture. Her bilateral carotid Doppler showed non-stenotic plague. Patient was evaluated by PT/OT who recommended ECF placement for short-term physical therapy. So will discharge her to ECF in a stable condition today. Patient was taking metoprolol 12.5 mg at home apparently she was given 25 mg here, however heart rate is staying in the low 60s so recommended her to go back to 12.5 mg. Talked to patients daughter at bedside and explained to her about all these instructions - Time Spent with Patient Total time spent providing and/or coordinating discharge services: - Discharge Medications Prescriptions: Clotrimazole/Betameth Dip/Zinc [Dermacinrx Therazole Harmeet] 135 gm TP BID #1 combo..pkg Home Medications: Aspirin Enteric Coated [Aspirin EC] 81 mg PO DAILY 09/06/15 [History] Ca/D3/Mag#11/Zinc/[employer]/Leonardo/Bor [Caltrate 600+D Plus Tablet] 1 tab PO BID 09/06/15 [History] Cholecalciferol (D-3) [Vitamin D] 2,000 unit PO DAILY 09/06/15 [History] Lansoprazole [Prevacid] 30 mg PO DAILY 09/06/15 [History] Levothyroxine [Synthroid] 75 mcg PO DAILY 09/06/15 [History] Multivit-Min/Iron/Folic/Lutein [Centrum Silver Women Tablet] 1 tab PO DAILY 09/06/15 [History] Vit C/E/Zn/Coppr/Lutein/Zeaxan [Preservision Areds 2 Softgel] 1 cap PO BID 11/19/15 [History] Oxybutynin Chloride [Ditropan Xl] 10 mg PO HS 05/07/16 [History] L. Acidophilus/Pectin, [place] [Acidophilus Probiotic Capsule] 1 each PO DAILY 06/04/16 [History] Furosemide [Lasix] 20 mg PO DAILY PRN 09/08/16 [History] Docusate [Colace] 100 mg PO BID capsule 09/12/16 [Rx] Donepezil [Aricept] 10 mg PO HS 03/03/18 [History] Rivaroxaban [Xarelto] 20 mg PO DAILY 03/03/18 [History] Clotrimazole/Betameth Dip/Zinc [Dermacinrx Therazole Harmeet] 135 gm TP BID #1 combo..pkg 03/07/18 [Rx] Metoprolol XL (24 HR) Succ [Toprol Xl] 12.5 mg PO DAILY #0 tab.er.24h 03/07/18 [Rx] Allergies/Adverse Reactions: Allergy/AdvReac Type Severity Reaction Status Date / Time azithromycin Allergy Rash Verified 12/24/16 09:53 ketoconazole Allergy Rash Verified 12/24/16 09:53 methylprednisolone Allergy Blister Verified 12/24/16 09:53 Penicillins Allergy Rash Verified 12/24/16 09:53 tramadol Allergy Nausea Verified 12/24/16 09:53 venlafaxine [From Effexor] AdvReac Depression Verified 12/24/16 09:53 Date of admission: 03/03/18 12:33 Primary care physician: Zuleika Avila CNP Consults: 03/03/18 12:00 Consult to Occupational Therapy [CONS] Routine Comment: Evaluate, develop and implement POC Reason for Consult: falls.. Syncope Does patient have active BEDREST order?: No Is patient medically & hemodynamically stable?: Yes Patient assessed for mobility or mobilized this visit?: Yes 03/03/18 12:01 Consult to Physical Therapy [CONS] Routine Comment: Evaluate, develop and implement POC Reason for Consult: Falls.. Syncope Does patient have active BEDREST order?: No Is patient medically & hemodynamically stable?: Yes Patient assessed for mobility or mobilized this visit?: Yes 03/05/18 13:08 Consult to Radiotelegrapher [CONS] Routine Reason for SW Consult: referral to [facility] for rehab pt 03/06/18 16:46 Consult to Cardiology [CONS] Routine Comment: Consulting Provider: Cardiology Christy Reason for Consult: syncope- bradycardia Time Notified: 16:46 Call Completed: No - Constitutional Vitals: Temp Pulse Resp BP Pulse Ox 98.2 F 61 16 127/72 91 03/07/18 06:42 03/07/18 06:42 03/07/18 06:42 03/07/18 06:42 03/07/18 06:42 General appearance: Present: cooperative, A&O X 1 Exam: Gen: Alert, awake, Oriented to person only... Looks demented.. Seems to be at her baseline Chest: Diminished breath sounds B/L, No wheezing, No crackles, No rales Heart: S1S2+ RRR No murmurs Abd: Soft, NT, BS +, No organomegaly Ext: No edema, pulses are palpable, No calf tenderness.. Eczematous skin and small healing ulcers noticed over Rt medial malelous region Neuro : chronic right residual paresis Skin: No rash. - Patient Status Disposition: Transfer SNF Condition: Good Overall status at discharge: patient is back to baseline - Discharge Instructions Follow Up With: Zuleika Avila CNP [Primary Care Provider] - (follow up [facility] 03/07/18) Tony Kearney [Partnered Physician] - 03/13/18 10:00 am Sandy Joshi MD [Partnered Physician] - 10/04/18 9:10 am - Diet and Activity Activity: as per physical therapy, increase activity as tolerated Diet: low salt diet
--- NOTE | 2018-03-07 10:38 | Physician Discharge Referral ---
ExtendedCare Referral Info Transfer To: F Provider in Charge after Transfer: PCP Institutional Level of Care: Skilled - Diagnosis (1) Near syncope Status: Acute (2) Fall with injury Status: Acute (3) Hypothyroid Status: Chronic (4) CKD (chronic kidney disease) stage 3, GFR 30-59 ml/min Status: Chronic (5) DVT (deep venous thrombosis) Status: Chronic (6) CHF (congestive heart failure) Status: Chronic (7) CVA (cerebral vascular accident) Status: Chronic - Transfer Medications Prescriptions: Clotrimazole/Betameth Dip/Zinc [Dermacinrx Therazole Harmeet] 135 gm TP BID #1 combo..pkg Home Medications: Aspirin Enteric Coated [Aspirin EC] 81 mg PO DAILY 09/06/15 [History] Ca/D3/Mag#11/Zinc/Transferrer/Leonardo/Bor [Caltrate 600+D Plus Tablet] 1 tab PO BID 09/06/15 [History] Cholecalciferol (D-3) [Vitamin D] 2,000 unit PO DAILY 09/06/15 [History] Lansoprazole [Prevacid] 30 mg PO DAILY 09/06/15 [History] Levothyroxine [Synthroid] 75 mcg PO DAILY 09/06/15 [History] Multivit-Min/Iron/Folic/Lutein [Centrum Silver Women Tablet] 1 tab PO DAILY 09/06/15 [History] Vit C/E/Zn/Coppr/Lutein/Zeaxan [Preservision Areds 2 Softgel] 1 cap PO BID 11/19/15 [History] Oxybutynin Chloride [Ditropan Xl] 10 mg PO HS 05/07/16 [History] L. Acidophilus/Pectin, [place] [Acidophilus Probiotic Capsule] 1 each PO DAILY 06/04/16 [History] Furosemide [Lasix] 20 mg PO DAILY PRN 09/08/16 [History] Docusate [Colace] 100 mg PO BID capsule 09/12/16 [Rx] Donepezil [Aricept] 10 mg PO HS 03/03/18 [History] Rivaroxaban [Xarelto] 20 mg PO DAILY 03/03/18 [History] Clotrimazole/Betameth Dip/Zinc [Dermacinrx Therazole Harmeet] 135 gm TP BID #1 combo..pkg 11/13/18 [Rx] Metoprolol XL (24 HR) Succ [Toprol Xl] 12.5 mg PO DAILY #0 tab.er.24h 03/07/18 [Rx] Allergies/Adverse Reactions: Allergy/AdvReac Type Severity Reaction Status Date / Time azithromycin Allergy Rash Verified 12/24/16 09:53 ketoconazole Allergy Rash Verified 12/24/16 09:53 methylprednisolone Allergy Blister Verified 12/24/16 09:53 Penicillins Allergy Rash Verified 12/24/16 09:53 tramadol Allergy Nausea Verified 12/24/16 09:53 venlafaxine [From Effexor] AdvReac Depression Verified 12/24/16 09:53 - Respiratory Orders Smoking Cessation: Smoking cessation has been advised. For more information, call the [place] Tobacco Quit Line at 5-849-YULWNOW. CERTIFICATION: I certify that the transfer of the above named patient to an Extended Care Facility is necessary for the continuing treatment of the diagnosis listed. The above information is true and accurate reflection of patient's current condition. Confidential - Redisclosure prohibited without a patient's written consent.
--- NOTE | 2018-03-07 14:53 | Cardiology Consult Note ---
<Silvina Wolfe - Last Filed: 03/07/18 14:37> Date of Encounter: 03/07/18 Time of Encounter: 09:45 Assessment and Plan (1) Dizziness, nonspecific Status: Acute Per cardiology: -Notes reviewed, appears dizziness may be vasovagal. -TTE with lVEF 50-55%, improved from previous. -Recommend pateint stay well hydrated, change positions slowly. (2) PAF (paroxysmal atrial fibrillation) Status: Chronic Per cardiology: -Known PAF. -Was on BB and xarelto at home. -Concern for bradycardia, however ECGs and telemetry reviewed with no significant bradycardic events noted. -Recommend continuing low dose BB, can decrease to 12.5mg dose. -Recommend continuing anticoagulation. Discussion w patient/family: The assessment and plan as outlined above was discussed with the patient who expressed understanding and agreement. All questions were answered. Thank you for involving us in the care of your patient. Please call with any questions. Discussed and reviewed with . History of Present Illness Consult date: 03/06/18 Requesting physician: Stephanie Ulola Consult reason: bradycardia Chief complaint: fall History of present illness: Ms. Mosher is a 82 year old female with a relevant past medical history of PAF, takatsubo cardiomyopathy, hypothyroidism, alzheimers, DVT, colon cancer, AAA with repair, CVA, NSTEMI, PVD who presented to [facility] after a fall at home. Patient is confused at bedside and no family available. HPI mostly obtained from charts. Per review of notes, patient had dizziness upon standing and fell. No reported loss of consciousness. Upon exam, patient knows that she is in the hospital and states that it is 2017, however unable to tell me her full name and birthdate. When asked about her fall, patient states she was out hunting in the [place] when she fell. Past Med Surg Social Fam HX - Past Medical History Attestation: Yes The following information was validated with the patient. Source: patient, old records reviewed Medical history: aortic aneurysm, cancer, cardiomyopathy, CHF, CVA, DVT, GERD, thyroid disease Additional medical history: colon cancer Psychiatric history: no psych history - Past Surgical History Surgical History: cataract, cholecystectomy, colectomy, hysterectomy Additional surgical history: EYE IMPLANTS, AAA repair, SKIN CA GRAFT. right hip nailing 2017. right hand nailing 2017 - Social History Smoking Status: Never smoker Smokeless Tobacco Status: No Alcohol use: none Drug use: none - Family History Daughter Adopted: No Family Member Ethnicity: Non- Living Status: Still Living Hx Family Cardiac Disorders: No Hx Family Respiratory Disorders: No Hx Family Cancer: No Hx Family GI Disorders: No Hx Family Endocrine Disorder: No Hx Family Neuromuscular Disorders: No Hx Family Neurologic Disorders: No Hx Family HEENT Disorders: Yes (glaucoma) Hx Family Autoimmune Disorders: No Mother Adopted: No Family Member Ethnicity: Non- Living Status: Hx Family Cancer: Yes Medications and Allergies RX: Aspirin Enteric Coated [Aspirin EC] 81 mg PO DAILY 09/06/15 [History] RX: Ca/D3/Mag#11/Zinc/Collator Hand/Leonardo/Bor [Caltrate 600+D Plus Tablet] 1 tab PO BID 09/06/15 [History] RX: Cholecalciferol (D-3) [Vitamin D] 2,000 unit PO DAILY 09/06/15 [History] RX: Lansoprazole [Prevacid] 30 mg PO DAILY 09/06/15 [History] RX: Levothyroxine [Synthroid] 75 mcg PO DAILY 09/06/15 [History] RX: Multivit-Min/Iron/Folic/Lutein [Centrum Silver Women Tablet] 1 tab PO DAILY 09/06/15 [History] RX: Vit C/E/Zn/Coppr/Lutein/Zeaxan [Preservision Areds 2 Softgel] 1 cap PO BID 11/19/15 [History] RX: Oxybutynin Chloride [Ditropan Xl] 10 mg PO HS 05/07/16 [History] RX: L. Acidophilus/Pectin, [place] [Acidophilus Probiotic Capsule] 1 each PO DAILY 06/04/16 [History] RX: Furosemide [Lasix] 20 mg PO DAILY PRN 09/08/16 [History] RX: Docusate [Colace] 100 mg PO BID capsule 09/12/16 [Rx] RX: Donepezil [Aricept] 10 mg PO HS 03/03/18 [History] RX: Rivaroxaban [Xarelto] 20 mg PO DAILY 03/03/18 [History] RX: Clotrimazole/Betameth Dip/Zinc [Dermacinrx Therazole Harmeet] 135 gm TP BID #1 combo..pkg 03/07/18 [Rx] RX: Metoprolol XL (24 HR) Succ [Toprol Xl] 12.5 mg PO DAILY #0 tab.er.24h 03/07/18 [Rx] Allergy/AdvReac Type Severity Reaction Status Date / Time azithromycin Allergy Rash Verified 12/24/16 09:53 ketoconazole Allergy Rash Verified 12/24/16 09:53 methylprednisolone Allergy Blister Verified 12/24/16 09:53 Penicillins Allergy Rash Verified 12/24/16 09:53 tramadol Allergy Nausea Verified 12/24/16 09:53 venlafaxine [From Effexor] AdvReac Depression Verified 12/24/16 09:53 All Systems Review: The remainder of the systems were reviewed and are negative - Cardiovascular Cardiovascular: as per HPI, lightheadedness Physical Examination Vital Signs Temperature 97.7 F 03/03/18 08:36 Pulse Rate 78 03/03/18 08:36 Respiratory Rate 20 03/03/18 08:36 Blood Pressure 138/94 03/03/18 08:36 O2 Sat by Pulse Oximetry 94 03/03/18 08:36 Temperature 98.2 F 03/07/18 06:42 Pulse Rate 61 03/07/18 06:42 Respiratory Rate 16 03/07/18 06:42 Blood Pressure 127/72 03/07/18 06:42 O2 Sat by Pulse Oximetry 91 03/07/18 06:42 Oxygen Delivery Oxygen Delivery Room Air General: Conversant, No Apparent Distress HEENT: Atraumatic, Normocephaly, Mucus Membranes Moist Neck: No JVD, Normal carotid pulses Cardiac: Reg Rate and Rhythm, Normal S1 and S2, No Murmur Lungs: Normal Breath Sounds, No Wheeze, Rales, Rhonchi Neuro: Alert and responsive, Other (Confused. ) Abdomen: Soft, Non-Tender Skin: No rashes noted on visualized skin Musculoskeletal: No Chest Wall Tenderness Extremities: No Clubbing, No Cyanosis, No Edema, Normal Pulses Results 03/07/18 04:28 03/07/18 04:28 Lab Results Laboratory Tests 03/07/18 03/07/18 04:28 04:28 Hgb 12.0 Creatinine 0.93 - Imaging and Cardiology Chest Xray: report reviewed Echo: report reviewed Cardiac cath: report reviewed - EKG Interpretation EKG results cardiology: personally reviewed (ECG with SR, HR 66.), other (Telemetry reviewed with average HR previous 12 hours noted to be 68, SR. PVCs and PACs noted.) Consult Discharge Plan - Plan Referrals: Zuleika Avila CNP [Primary Care Provider] - (follow up [facility] 03/07/18) Tony Kearney [Partnered Physician] - 03/13/18 10:00 am Sandy oJshi MD [Partnered Physician] - 10/04/18 9:10 am Prescriptions: RX: Clotrimazole/Betameth Dip/Zinc [Dermacinrx Therazole Harmeet] 135 gm TP BID #1 combo..pkg <Pramod Diego - Last Filed: 03/07/18 17:55> Date of Encounter: 03/07/18 - Attending Attestation I have reviewed and agree with the documented findings and care plan as documented by the HSE COORDINATOR. However patient was discharged before I could see her [id number]. 82-year-old female with past history of hypertension, hyperlipidemia, DVT on Xarelto, CVA, admitted status post fall noted to have an episode of bradycardia on telemetry overnight. Telemetry review showed tracking of prominent T waves which might have been misinterpreted as bradycardia Impression/plan: Near- syncope Possibly vasovagal in etiology; advise adequate rehydration and counter pressure manouvers. May hold AV yari blocking agents. Follow up as outpatient with wafer machine operator for possible component of sick sinus syndrome Pramod Broussard MD Assessment and Plan Discussion w patient/family: The assessment and plan as outlined above was discussed with the patient and/or family members who expressed understanding and agreement. All questions were answered. Thank you for involving us in the care of your patient. Please call with any questions. History of Present Illness History of present illness: Ms. Mosher is a 82 year old female All Systems Review: The remainder of the systems were reviewed and are negative Results 03/07/18 04:28 03/07/18 04:28 Lab Results 03/07/18 03/07/18 04:28 04:28 WBC 9.0 Hgb 12.0 Hct 39.4 Plt Count 208 Sodium 143 Potassium 4.4 Chloride 107 Carbon Dioxide 24 BUN 22 Creatinine 0.93 Glucose 98 Calcium 9.5
--- NOTE | 2018-03-10 21:22 | Electrocardiograph Report ---
[address] [place], [place] [address] Test Date: 2018-03-06 Pat Name: Janeen Mosher Department: 113 Room: 3B Gender: F Joint Finisher: : 1935 Requested By: Stephanie Ulloa Order Number: [id number] Reading MD: Gray Jaffe Measurements Intervals [place] Rate: 66 P: 66 SC: 202 QRS: -2 QRSD: 108 T: 55 QT: 427 QTc: 440 Interpretive Statements SINUS RHYTHM LOW QRS VOLTAGE IN PRECORDIAL LEADS ANTEROSEPTAL MYOCARDIAL INFARCTION, OF INDETERMINATE AGE Electronically Signed On 03-10-2018 21:21:20 EST by Gray Jaffe
== END 2018-03-07 13:00 ==
LOC: 3BNU 08:34 → EMEROOARM 08:34 → 3BNU 13:16
PROVIDERS: ADMIT Internal Medicine; ATTEND Internal Medicine

== ENCOUNTER 2019-06-20 10:58 | Inpatient (IN) ==
[2019-06-20] MEDS ORDERED: 0.9 % Sodium Chloride 1,000 ML IVC ONE ×2 (11:22→14:57)
[2019-06-20 11:47] LABS: Mean Platelet Volume 11.8 fL (9.4-12.4); Red Cell Distribution Width 15.9 % (11.5-14.5)
[2019-06-20 11:49] LABS: Hematocrit 44.8 % (35.3-44.9); Hemoglobin 13.3 g/dL (11.5-15.4); Mean Corpuscular HGB Conc 29.7 g/dL (31.6-35.5); Mean Corpuscular Hemoglobin 32.3 pg (28.0-33.3); Mean Corpuscular Volume 108.7 fL (83.0-100.0); Platelet Count 206 K/mcL (140-400); Red Blood Count 4.12 M/mcL (3.82-4.97); White Blood Count 14.4 K/mcL (4.3-11.1)
[2019-06-20 12:59] LABS: Bilirubin,Urine Negative (Negative); Blood,Urine Negative (Negative); Color,Urine Yellow (Yellow); Glucose,Urine (UA) Normal (Normal); Ketones,Urine Negative (Negative); Leukocyte Esterase,Urine Large (Negative); Nitrite,Urine Negative (Negative); Protein,Urine Negative (Neg-Trace); Specific Gravity,Urine 1.021 (1.010-1.025); Urobilinogen,Urine Normal (Normal)
[2019-06-20 13:00] LABS: Clarity,Urine Hazy (Clear)
[2019-06-20 13:03] LABS: Bacteria,Urine None Seen per hpf (None-Few); Hyaline Casts,Urine Few per lpf (None-Few); Squamous Epithelial Cell,Urine Many per lpf (None-Few); WBC,Urine 50-100 per hpf (0-3)
[2019-06-20 13:23] LABS: Transitional Epi Cells,Urine Many per hpf (None-Few)
[2019-06-20 13:24] LABS: Yeast,Urine Moderate per hpf (None Seen)
[2019-06-20 13:42] LABS: Albumin 3.8 g/dL (3.5-5.7); Bilirubin,Direct 0.1 mg/dL (0.0-0.2); Bilirubin,Indirect 0.5 mg/dL (0.0-1.0); Bilirubin,Total 0.6 mg/dL (0.3-1.0); Calcium 10.2 mg/dL (8.6-10.3); Globulin 3.8 g/dL (2.4-3.5); Potassium 4.1 mEq/L (3.5-5.1); Total Protein 7.6 g/dL (6.4-8.9)
[2019-06-20] MEDS ORDERED: Naloxone 0.4 MG/ML INJ IVP PRN (18:37)
[2019-06-20] MEDS ORDERED: Ondansetron 4 MG/2 ML VIAL IVP PRN (18:37)
[2019-06-20] MEDS ORDERED: D5% in Water 1,000 ML IVC SCH (22:15)
[2019-06-21 01:13] LABS: Hematocrit 37.4 % (35.3-44.9); Mean Corpuscular HGB Conc 29.1 g/dL (31.6-35.5); Mean Corpuscular Hemoglobin 32.2 pg (28.0-33.3); Mean Corpuscular Volume 110.7 fL (83.0-100.0); Mean Platelet Volume 11.6 fL (9.4-12.4); Platelet Count 151 K/mcL (140-400); Red Blood Count 3.38 M/mcL (3.82-4.97); Red Cell Distribution Width 15.9 % (11.5-14.5); White Blood Count 12.3 K/mcL (4.3-11.1)
[2019-06-21 01:14] LABS: Hemoglobin 10.9 g/dL (11.5-15.4)
[2019-06-21 01:41] LABS: Calcium 8.8 mg/dL (8.6-10.3)
[2019-06-21] MEDS ORDERED: D5% in 0.45% NACL 1,000 ML IVC SCH (09:00)
[2019-06-21] MEDS ORDERED: NON-FORMULARY MEDICATION 1 EACH EACH (Rivaroxaban [Xarelto] 20 MG) PO SCH (09:00)
[2019-06-21] MEDS: Aspirin Enteric Coated 81 MG Tablet PO SCH (09:04)
[2019-06-21] MEDS: Metoprolol XL (24 HR) Succ 25 MG TAB.ER.24H PO SCH (09:33)
[2019-06-21] MEDS: cefTRIAXone 1,000 MG in Water for inj. (sterile) 10 ML IVP SCH (14:26)
[2019-06-21] MEDS ORDERED: D5% in Water 1,000 ML IVC SCH (21:00)
[2019-06-22 04:42] LABS: Hematocrit 34.4 % (35.3-44.9); Hemoglobin 10.3 g/dL (11.5-15.4); Mean Corpuscular HGB Conc 29.9 g/dL (31.6-35.5); Mean Corpuscular Hemoglobin 32.7 pg (28.0-33.3); Mean Corpuscular Volume 109.2 fL (83.0-100.0); Mean Platelet Volume 11.5 fL (9.4-12.4); Platelet Count 136 K/mcL (140-400); Red Blood Count 3.15 M/mcL (3.82-4.97); White Blood Count 12.7 K/mcL (4.3-11.1)
[2019-06-22 05:02] LABS: Calcium 8.3 mg/dL (8.6-10.3); Potassium 3.8 mEq/L (3.5-5.1)
[2019-06-22] MEDS ORDERED: Acetaminophen 325 MG TABLET PO PRN (07:16)
[2019-06-22] MEDS: cefTRIAXone 1,000 MG in Water for inj. (sterile) 10 ML IVP SCH (07:59)
[2019-06-22] MEDS: Aspirin Enteric Coated 81 MG Tablet PO SCH (07:59)
[2019-06-22] MEDS: Metoprolol XL (24 HR) Succ 25 MG TAB.ER.24H PO SCH (07:59)
[2019-06-22] MEDS: D5% in Water 1,000 ML IVC SCH ×2 (10:15→15:24)
[2019-06-22] MEDS ORDERED: Acetaminophen 325 MG RECTAL SUPP RC PRN (16:34)
[2019-06-23 02:14] LABS: Hematocrit 33.5 % (35.3-44.9); Hemoglobin 10.1 g/dL (11.5-15.4); Mean Corpuscular HGB Conc 30.1 g/dL (31.6-35.5); Mean Corpuscular Hemoglobin 33.2 pg (28.0-33.3); Mean Corpuscular Volume 110.2 fL (83.0-100.0); Mean Platelet Volume 11.9 fL (9.4-12.4); Platelet Count 121 K/mcL (140-400); Red Blood Count 3.04 M/mcL (3.82-4.97); Red Cell Distribution Width 15.7 % (11.5-14.5); White Blood Count 11.9 K/mcL (4.3-11.1)
[2019-06-23 02:33] LABS: Calcium 8.3 mg/dL (8.6-10.3); Potassium 3.7 mEq/L (3.5-5.1)
[2019-06-23] MEDS: D5% in Water 1,000 ML IVC SCH ×2 (04:47→18:41)
[2019-06-23] MEDS: Aspirin Enteric Coated 81 MG Tablet PO SCH (09:18)
[2019-06-23] MEDS: Metoprolol XL (24 HR) Succ 25 MG TAB.ER.24H PO SCH (09:19)
[2019-06-23] MEDS: cefTRIAXone 1,000 MG in Water for inj. (sterile) 10 ML IVP SCH (09:28)
[2019-06-24 06:45] LABS: Hemoglobin 10.2 g/dL (11.5-15.4)
[2019-06-24 06:47] LABS: Hematocrit 35.1 % (35.3-44.9); Mean Corpuscular HGB Conc 29.1 g/dL (31.6-35.5); Mean Corpuscular Hemoglobin 31.6 pg (28.0-33.3); Mean Corpuscular Volume 108.7 fL (83.0-100.0); Mean Platelet Volume 11.7 fL (9.4-12.4); Red Blood Count 3.23 M/mcL (3.82-4.97); Red Cell Distribution Width 14.5 % (11.5-14.5); White Blood Count 8.8 K/mcL (4.3-11.1)
[2019-06-24 07:03] LABS: BUN/Creatinine Ratio 25 (6-26); Blood Urea Nitrogen 26 mg/dL (8-23); Calcium 8.1 mg/dL (8.6-10.3); Carbon Dioxide 27 mEq/L (23-29); Chloride 119 mEq/L (98-107); Glucose 104 mg/dL (70-105); Osmolality,Calculated 317 (280-300); Potassium 3.7 mEq/L (3.5-5.1); Sodium 151 mEq/L (136-145); eGFR For African Americans > 60 (> 60); eGFR For Non-African Americans 51 (> 60)
[2019-06-24] MEDS: cefTRIAXone 1,000 MG in Water for inj. (sterile) 10 ML IVP SCH (08:48)
[2019-06-24] MEDS: Metoprolol XL (24 HR) Succ 25 MG TAB.ER.24H PO SCH (08:49)
[2019-06-24] MEDS: Aspirin Enteric Coated 81 MG Tablet PO SCH (08:49)
[2019-06-24] MEDS: D5% in Water 1,000 ML IVC SCH ×2 (08:50→22:00)
[2019-06-25 02:16] LABS: Hematocrit 35.7 % (35.3-44.9); Hemoglobin 10.6 g/dL (11.5-15.4); Mean Corpuscular HGB Conc 29.7 g/dL (31.6-35.5); Mean Corpuscular Hemoglobin 32.1 pg (28.0-33.3); Mean Corpuscular Volume 108.2 fL (83.0-100.0); Mean Platelet Volume 12.1 fL (9.4-12.4); Platelet Count 108 K/mcL (140-400); Red Cell Distribution Width 14.2 % (11.5-14.5); White Blood Count 9.3 K/mcL (4.3-11.1)
[2019-06-25 02:34] LABS: BUN/Creatinine Ratio 20 (6-26); Blood Urea Nitrogen 19 mg/dL (8-23); Carbon Dioxide 27 mEq/L (23-29); Chloride 114 mEq/L (98-107); Glucose 94 mg/dL (70-105); Osmolality,Calculated 302 (280-300); Potassium 3.6 mEq/L (3.5-5.1); Sodium 145 mEq/L (136-145); eGFR For African Americans > 60 (> 60); eGFR For Non-African Americans 54 (> 60)
[2019-06-25] MEDS: cefTRIAXone 1,000 MG in Water for inj. (sterile) 10 ML IVP SCH (07:54)
[2019-06-25] MEDS: Aspirin Enteric Coated 81 MG Tablet PO SCH (07:55)
[2019-06-25] MEDS: Metoprolol XL (24 HR) Succ 25 MG TAB.ER.24H PO SCH (07:56)
[2019-06-25] MEDS: D5% in Water 1,000 ML IVC SCH (12:06)
[2019-06-26 04:53] LABS: BUN/Creatinine Ratio 17 (6-26); Blood Urea Nitrogen 14 mg/dL (8-23); Calcium 8.1 mg/dL (8.6-10.3); Carbon Dioxide 23 mEq/L (23-29); Chloride 112 mEq/L (98-107); Glucose 89 mg/dL (70-105); Osmolality,Calculated 296 (280-300); Potassium 3.6 mEq/L (3.5-5.1); Sodium 143 mEq/L (136-145); eGFR For African Americans > 60 (> 60); eGFR For Non-African Americans > 60 (> 60)
[2019-06-26 07:27] VITALS: BP 98/47
[2019-06-26] MEDS: Aspirin Enteric Coated 81 MG Tablet PO SCH (08:56)
[2019-06-26] MEDS: Metoprolol XL (24 HR) Succ 25 MG TAB.ER.24H PO SCH (08:57)
== END 2019-06-26 10:49 | disposition hospice, home (50) | DRG 640 ==
LOC: EMEROOARM 10:58 → 2ANU 10:58 → SUATTDRO 16:45 → 2ANU 19:35 → SUATTDRO 06-21 15:10
PROVIDERS: ADMIT Family Medicine; ATTEND Internal Medicine

== ENCOUNTER 2019-06-26 10:26 | Inpatient (IN) ==
[2019-06-26] MEDS ORDERED: Atropine Sulfate 1% 40 DROP/2 ML BOTTLE SL PRN (10:45)
[2019-06-26] MEDS ORDERED: Bisacodyl 10 MG RECTAL SUPPOSITORY RC PRN (10:45)
[2019-06-26] MEDS: *HR* LORazepam Oral Conc 2 MG/ML PO PRN (13:12)
[2019-06-26] MEDS ORDERED: Haloperidol Oral Conc 10 MG/5 ML UDC PO PRN (13:14)
[2019-06-26] MEDS ORDERED: Ondansetron ODT 4 MG TAB.RAPDIS SL PRN (13:15)
[2019-06-27] MEDS: *HR* LORazepam Oral Conc 2 MG/ML PO PRN (06:47)
[2019-06-27] MEDS: Artificial Tears SOLN 15 ML BOTTLE BOTH EYES SCH ×3 (10:18→21:26)
[2019-06-27] MEDS: Morphine Sulfate Oral CONC 10 MG/0.5 ML ORAL.SYG SL PRN (19:19)
[2019-06-28] MEDS: Morphine Sulfate Oral CONC 10 MG/0.5 ML ORAL.SYG SL PRN (04:23)
[2019-06-28] MEDS: Artificial Tears SOLN 15 ML BOTTLE BOTH EYES SCH ×2 (07:11→14:23)
[2019-06-28] MEDS: *HR* LORazepam Oral Conc 2 MG/ML PO PRN (07:55)
[2019-06-29] MEDS: Morphine Sulfate Oral CONC 10 MG/0.5 ML ORAL.SYG SL PRN ×2 (00:15→10:39)
[2019-06-29] MEDS: Artificial Tears SOLN 15 ML BOTTLE BOTH EYES SCH ×4 (00:15→19:49)
[2019-06-29] MEDS ORDERED: Haloperidol Oral Conc 10 MG/5 ML UDC PO PRN (10:06)
[2019-06-29] MEDS: Haloperidol Oral Conc 10 MG/5 ML UDC PO SCH ×3 (10:38→23:45)
[2019-06-30] MEDS: Haloperidol Oral Conc 10 MG/5 ML UDC PO SCH ×4 (06:16→23:34)
[2019-06-30] MEDS: Morphine Sulfate Oral CONC 10 MG/0.5 ML ORAL.SYG SL PRN ×2 (07:40→14:17)
[2019-06-30] MEDS: Artificial Tears SOLN 15 ML BOTTLE BOTH EYES SCH ×3 (07:43→20:00)
[2019-06-30] MEDS: Lacri-Lube 3.5 GM TUBE BOTH EYES SCH ×2 (14:18→20:00)
[2019-06-30] MEDS: Acetaminophen 650 MG RECTAL SUPP RC PRN (14:19)
[2019-07-01] MEDS: Haloperidol Oral Conc 10 MG/5 ML UDC PO SCH ×3 (06:15→18:26)
[2019-07-01] MEDS: Lacri-Lube 3.5 GM TUBE BOTH EYES SCH ×2 (07:59→20:01)
[2019-07-01] MEDS: Artificial Tears SOLN 15 ML BOTTLE BOTH EYES SCH ×3 (07:59→20:01)
[2019-07-01] MEDS: Morphine Sulfate Oral CONC 10 MG/0.5 ML ORAL.SYG SL PRN ×2 (10:27→18:32)
[2019-07-01] MEDS ORDERED: *HR* FentaNYL PATCH 12 MCG PATCH TD SCH (11:15)
[2019-07-01] MEDS: Saliva Stimulant 100ml BOTTLE PO PRN ×2 (16:12→20:07)
[2019-07-01] MEDS: Acetaminophen 650 MG RECTAL SUPP RC PRN (20:00)
[2019-07-02] MEDS: Morphine Sulfate Oral CONC 10 MG/0.5 ML ORAL.SYG SL PRN ×3 (00:21→21:38)
[2019-07-02] MEDS: Haloperidol Oral Conc 10 MG/5 ML UDC PO SCH ×4 (00:22→18:38)
[2019-07-02] MEDS: Acetaminophen 650 MG RECTAL SUPP RC PRN (08:17)
[2019-07-02] MEDS: Artificial Tears SOLN 15 ML BOTTLE BOTH EYES SCH ×3 (08:21→20:09)
[2019-07-02] MEDS: Lacri-Lube 3.5 GM TUBE BOTH EYES SCH ×2 (08:21→20:09)
[2019-07-02] MEDS: Saliva Stimulant 100ml BOTTLE PO PRN ×2 (08:21→17:49)
[2019-07-03] MEDS: Haloperidol Oral Conc 10 MG/5 ML UDC PO SCH ×4 (00:05→16:59)
[2019-07-03] MEDS: Morphine Sulfate Oral CONC 10 MG/0.5 ML ORAL.SYG SL PRN ×2 (08:37→21:36)
[2019-07-03] MEDS: Acetaminophen 650 MG RECTAL SUPP RC PRN ×2 (08:37→22:02)
[2019-07-03] MEDS: Artificial Tears SOLN 15 ML BOTTLE BOTH EYES SCH ×3 (08:44→21:37)
[2019-07-03] MEDS: Lacri-Lube 3.5 GM TUBE BOTH EYES SCH ×2 (08:44→21:38)
[2019-07-03 19:18] VITALS: BP 94/57
[2019-07-03] MEDS: Saliva Stimulant 100ml BOTTLE PO PRN (21:58)
[2019-07-04] MEDS: Haloperidol Oral Conc 10 MG/5 ML UDC PO SCH (00:54)
[2019-07-04] MEDS: Morphine Sulfate Oral CONC 10 MG/0.5 ML ORAL.SYG SL PRN (02:23)
[2019-07-04] MEDS: Saliva Stimulant 100ml BOTTLE PO PRN (02:23)
== END 2019-07-04 06:06 | disposition expired ==
LOC: 2ANU 10:51
PROVIDERS: ADMIT Internal Medicine Hospice and Palliative Medicine; ATTEND Internal Medicine Hospice and Palliative Medicine